=== PATIENT | female | born 2000 | race Hispanic/Latino ===

== ENCOUNTER 2021-03-07 16:51 | Inpatient (IN) | payer SELFPAY ==
--- OUTSIDE RECORDS SUMMARY | 2021-03-07 16:53 | XMS REPORT | Continuity of Care Document ---
:2000 Author Organization [facility] [place] [facility] t Address [address] [place] [address] Care Team Providers Name Role Phone Carlos Gordon [facility], [facility] Primary Care P hysician BETSY STONER Attending Clinician Unavailable Nan Stoner DO Attending Clinician Doctor Unassigned, Name Attending Clinician Unavailable Payers Payer Name Policy Type Policy Number Effective Date Expiration Date S ource Problems Condition Condition Condition Status Onset Resolution Last Treating Co mments Source Name Details Category Date Date Treatment Clinician Date New onset New onset Disease Active 2018-02 Uni vers type 1 type 1 03-19 ity of diabetes diabetes 00:00: [place] mellitus, mellitus, 00 Medi lynda uncontroll uncontroll Br anch ed ed Allergies, Adverse Reactions, Alerts Allergy Allergy Status Severity Reaction(s) Onset Inactive Treating Comm ents Source Name Type Date Date Clinician NO KNOWN Drug Active Univers ALLERGIE Class ity of S [facility] Social History Social Habit Start Date Stop Date Quantity Comments Source Exposure to Not sure [facility] SARS-CoV-2 [facility] (event) Branch Alcohol intake 2021-03-07 2021-03-07 Ex-drinker [facility] 00:00:00 00:00:00 (finding) [facility] Tobacco use and 2019-01-17 2019-01-17 Never used Universit y of exposure 00:00:00 00:00:00 [facility] Sex Assigned At [birth year] Universit y of 00:00:00 00:00:00 [facility] Smoking Status Start Date Stop Date Source Never smoker [facility] Medical Branch Medications Ordered Filled Start Stop Current Ordering Indication Dosage Frequency Signature Comments Components Source Medication Medication Date Date Medication? Clinician (SIG) Name Name ibuprofen 2021- No 600mg 600 mg, Uni vers (IBU) 03-07 Oral, ity of tablet 600 13:45: 12:39 ONCE, 1 Hardeep as mg 00 :00 dose, On Medical 03/07/21 Branch at 0745, DELFIN Lancets 2018-02 Yes [id number] Use as Uni vers (RELION 23 directed ity of ULTRA THIN 00:00: [place] PLUS 00 Medical LANCETS) Branch [facility] Insulin 2018-02 Yes [id number] Use as Uni vers Syringe-Nee 03-21 directed ity of dle U-100 00:00: [place] (BD INSULIN 00 Medical SYRINGE) Branch 0.5 mL 29 gauge x 1/2" Syrg insulin NPH 2018-02 Yes [id number] 10U inject 10 Univers and regular 1-23 Units ity of human 70-30 00:00: [place] 100 unit/mL 00 skin every Me dical (70-30) 12 Branch injection (twelve) hours. Blood-Gluco 2018-02 Yes [id number] Use as Univers se Meter 03-21 directed ity of (RELION 00:00: [place] MICRO 00 Medical GLUCOSE Branch MONITOR) Kit Lancets 2018-02 Yes [id number] Use as Uni vers (RELION 03-21 directed ity of ULTRA THIN 00:00: [place] PLUS 00 Medical LANCETS) Branch [facility] Insulin 2018-02 Yes [id number] Use as Uni vers Syringe-Nee 03-21 directed ity of dle U-100 00:00: [place] (BD INSULIN 00 Medical SYRINGE) Branch 0.5 mL 29 gauge x 1/2" Syrg insulin NPH 2018- Yes [id number] 10U inject 10 Univers and regular 1-23 Units ity of human 70-30 00:00: [place] 100 unit/mL 00 skin every Me dical (70-30) 12 Branch injection (twelve) hours. Blood-Gluco 2018-02 Yes [id number] Use as Univers se Meter 03-21 directed ity of (RELION 00:00: [place] MICRO 00 Medical GLUCOSE Branch MONITOR) Kit ibuprofen 2018-02 Yes [id number] 800mg Take 1 Univers 800 mg 1-21 tablet by ity of tablet 00:00: mouth [place] 00 every 8 Medical (eight) Branch hours as needed for Temp > 38.5 C (PAIN). ibuprofen 2018-02 Yes [id number] 800mg Take 1 Univers 800 mg 1-21 tablet by ity of tablet 00:00: mouth [place] 00 every 8 Medical (eight) Branch hours as needed for Temp > 38.5 C (PAIN). Vital Signs Vital Name Observation Time Observation Value Comments Source Systolic blood 2021-03-07 12:25:00 109 mm[Hg[facility] Diastolic blood 2021-03-07 12:25:00 72 mm[Hg] [facility] Heart rate 2021-03-07 12:25:00 122 /min [facility] Body temperature 2021-03-07 12:25:00 38.22 [facility] Respiratory rate 2021-03-07 12:25:00 18 /min [facility] Body weight 2021-03-07 12:25:00 66.225 kg [facility] Oxygen saturation in 2021-03-07 12:25:00 98 /min [facility] blood by [facility] Pulse oximetry Branch Procedures Procedure Date / Time Performed Performing Clinician Sourc e POCT GLUCOSE 2021-03-07 12:29:[address] [facility] (AUTOMATED) Medical [place] NOTICE OF PRIVACY 2021-03-07 12:18:40 Doctor Unassigned, No [facility] Name Medical Branch CONSENT/REFUSAL FOR 2021-03-07 12:18:18 Doctor Unassigned, No [facility] DIAGNOSIS AND Name Medical Branch TREATMENT Encounters Start End Encounter Admission Attending Care Care Encounter Source Date/Time Date/Time Type Type Clinicians Facility Department ID 2021-03-07 2021-03-07 Emergency X DARCI STONER ERT [id number] Univers 06:32:00 06:55:00 [facility]SY [facility] 2021-03-07 2021-03-07 Emergency DARCI Stoner [id number] Univers 06:32:00 06:55:00 Betsy SILVA [id number] ity of [place] [id number] [facility] [id number] [facility] 084 Branch 2021-03-07 2021-03-07 Orders Doctor DEMETRIUS [id number] Univers 00:00:00 00:00:00 Only Unassigned, BUNNY [id number] ity of Tat Momoli [facility] [id number] [facility] [id number] [facility] [address] [place] Results Test Description Test Time Test Comments Results Result Comments Source POCT GLUCOSE (AUTOMATED) 2021-03-07 12:31:46 Test Item Value Reference Range Interpretation Comme nts POCT GLU (test code = [id number]) 359 mg/dL 70-110 H Lab Interpretation (test code = 82083-3) Abnormal [facility]
[2021-03-07 21:06] LABS: Absolute Lymphocytes (CBC) 0.6 K/uL (0.7-4.9); Hematocrit 34.6 % (36.0-45.0); Lymphocytes % 5.6 % (15.3-44.8); MPV 9.2 fL (7.6-11.3); RBC Red Blood Cell Count 4.37 M/uL (3.86-4.86)
[2021-03-07 21:23] LABS: ALT/SGPT 27 U/L (12-78); AST/SGOT 23 U/L (15-37); Albumin 2.2 g/dL (3.4-5.0); Alkaline Phosphatase 114 U/L (45-117); BUN Blood Urea Nitrogen 33 mg/dL (7-18); Bicarbonate 23 mmol/L (21-32); Bilirubin Direct 0.2 mg/dL (0-0.2); Bilirubin Total 0.4 mg/dL (0.2-1.0); Glucose Level 345 mg/dL (74-106); Lipase 197 U/L (73-393); Potassium 4.4 mmol/L (3.5-5.1); Protein, Total 8.4 g/dL (6.4-8.2); Sodium Level 121 mmol/L (136-145)
[2021-03-07] MEDS ORDERED: NA CHLORIDE 0.9% 50 ML ONE (21:43)
[2021-03-07] MEDS ORDERED: ONDANSETRON 4 MG/2 ML VIAL ONE (21:43)
[2021-03-07] MEDS ORDERED: NA CHLORIDE 0.9% 2,000 ML ONE (21:43)
[2021-03-07] MEDS ORDERED: MORPHINE 2 MG/ML SYR ONE (21:43)
[2021-03-07] MEDS ORDERED: CEFTRIAXONE 1000 MG/VIAL ONE (21:43)
[2021-03-07] MEDS ORDERED: INSULIN -REGULAR HUMAN 50 UNIT/0.5 ML ML ONE (22:54)
[2021-03-07 23:44] LABS: Urine Blood 2+ (Negative); Urine Glucose 2+ (Negative); Urine Protein 2+ (Negative); Urine pH 5.5 (5.0-7.0)
[2021-03-07 23:55] LABS: Magnesium 2.4 mg/dL (1.8-2.4); NT PRO-BNP 154 pg/mL (<125); Troponin (Emerg Dept Use Only) < 0.02 ng/mL (0.0-0.045)
[2021-03-08 00:42] LABS: Protime INR 1.37
--- NOTE | 2021-03-08 01:15 | EDPHYS ---
Physician Documentation [facility] Name: Rain Chaidez Age: 20 yrs Sex: Female : 2000 Arrival Date: 03/07/2021 Time: 16:52 Bed 8 Private MD: ED Physician Austin Casey HPI: 03/07 21:16 This 20 yrs old Female presents to ER via Wheelchair with complaints of glory Abdominal Pain, Back Pain. 21:16 The patient presents with pain that is acute, with no known mechanism of injury. The glory symptoms are located in the left mid back. Onset: The symptoms/episode began/occurred 3 day(s) ago. The pain radiates to the posterior aspect of left lateral abdomen, anterior aspect of left lateral abdomen and left lower quadrant. Associated signs and symptoms: The patient has no apparent associated signs or symptoms. The problem was sustained from unknown cause. Modifying factors: The patient symptoms are alleviated by nothing, the patient symptoms are aggravated by nothing. Severity of symptoms: At their worst the symptoms were moderate, in the emergency department the symptoms are unchanged. The patient has not experienced similar symptoms in the past. 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 - Social history:: Smoking status: Patient denies any tobacco usage or history of. - Family history:: not pertinent. ROS: 21:16 Constitutional: Negative for fever, chills, and weight loss, Eyes: Negative for injury, glory pain, redness, and discharge, ENT: Negative for injury, pain, and discharge, Neck: Negative for injury, pain, and swelling, Cardiovascular: Negative for chest pain, palpitations, and edema, Respiratory: Negative for shortness of breath, cough, wheezing, and pleuritic chest pain, Abdomen/GI: Negative for abdominal pain, nausea, vomiting, diarrhea, and constipation, : Negative for injury, bleeding, discharge, and swelling, MS/Extremity: Negative for injury and deformity, Skin: Negative for injury, rash, and discoloration, Neuro: Negative for headache, weakness, numbness, tingling, and seizure, Psych: Negative for depression, anxiety, suicide ideation, homicidal ideation, and hallucinations, Allergy/Immunology: Negative for hives, rash, and allergies, Endocrine: Negative for neck swelling, polydipsia, polyuria, polyphagia, and marked weight changes. 21:16 Back: Positive for pain at rest, pain with movement, flank pain, on the right. 21:16 : Positive for urinary symptoms, urinary frequency. Exam: 21:16 Constitutional: This is a well developed, well nourished patient who is awake, alert, glory and in no acute distress. Head/Face: Normocephalic, atraumatic. Eyes: Pupils equal round and reactive to light, extra-ocular motions intact. Lids and lashes normal. Conjunctiva and sclera are non-icteric and not injected. Cornea within normal limits. Periorbital areas with no swelling, redness, or edema. ENT: Nares patent. No nasal discharge, no septal abnormalities noted. Tympanic membranes are normal and external auditory canals are clear. Oropharynx with no redness, swelling, or masses, exudates, or evidence of obstruction, uvula midline. Mucous membranes moist. Neck: Trachea midline, no thyromegaly or masses palpated, and no cervical lymphadenopathy. Supple, full range of motion without nuchal rigidity, or vertebral point tenderness. No Meningismus. Chest/axilla: Normal chest wall appearance and motion. Nontender with no deformity. No lesions are appreciated. Cardiovascular: Regular rate and rhythm with a normal S1 and S2. No gallops, murmurs, or rubs. Normal PMI, no JVD. No pulse deficits. Respiratory: Lungs have equal breath sounds bilaterally, clear to auscultation and percussion. No rales, rhonchi or wheezes noted. No increased work of breathing, no retractions or nasal flaring. Pelvic Exam: Normal external genitalia. Speculum exam with closed cervical os, no discharge or bleeding noted. Bimanual exam with normal adnexa, no adnexal or cervical motion tenderness. Normal uterus. Female : Normal external genitalia. Skin: Warm, dry with normal turgor. Normal color with no rashes, no lesions, and no evidence of cellulitis. MS/ Extremity: Pulses equal, no cyanosis. Neurovascular intact. Full, normal range of motion. Neuro: Awake and alert, GCS 15, oriented to person, place, time, and situation. Cranial nerves II-XII grossly intact. Motor strength 5/5 in all extremities. Sensory grossly intact. Cerebellar exam normal. Normal gait. 21:16 Abdomen/GI: Inspection: abdomen appears normal, Bowel sounds: normal, Palpation: moderate abdominal tenderness, in the posterior aspect of left lateral abdomen, anterior aspect of left lateral abdomen and left lower quadrant, Liver: no appreciated palpable abnormalities, Hernia: not appreciated. 22:44 ECG was reviewed by the Attending Physician. [facility] Vital Signs: 17:42 BP 115 / 81; Pulse 135; Resp 18; Temp 99.1(TE); Pulse Ox 99% on R/A; Weight 70.76 kg; ww Height 5 ft. 0 in. (152.40 cm); Pain 10/10; 22:18 BP 117 / 74; Pulse 98; Resp 18; Pulse Ox 100% on R/A; tw5 23:15 BP 121 / 86; Pulse 90; Resp 18; Pulse Ox 95% on R/A; tw5 03/08 00:15 Pulse 96; Resp 22; Pulse Ox 100% on R/A; tw5 01:36 BP 149 / 103; Pulse 103; Resp 22; Temp 99.8(O); Pulse Ox 98% on R/A; sm5 03/07 17:42 Body Mass Index 30.47 (70.76 kg, 152.40 cm) Shanna Coma Score: 03/07 22:18 Eye Response: spontaneous(4). Verbal Response: oriented(5). Motor Response: obeys tw5 commands(6). Total: 15. 23:15 Eye Response: spontaneous(4). Verbal Response: oriented(5). Motor Response: obeys tw5 commands(6). Total: 15. 03/08 00:15 Eye Response: spontaneous(4). Verbal Response: oriented(5). Motor Response: obeys tw5 commands(6). Total: 15. :36 Eye Response: spontaneous(4). Verbal Response: oriented(5). Motor Response: obeys sm5 commands(6). Total: 15. MDM: 03/07 19:45 Patient medically screened. [facility] 21:22 Differential diagnosis: Hydronephrosis Pyelonephritis sprain, Ureterolithiasis. Data [facility] reviewed: vital signs, nurses notes, lab test result(s), radiologic studies, plain films. Data interpreted: personnel monitor: rate is 135 beats/min, rhythm is regular, Pulse oximetry: on room air is 99 %. Test interpretation: by ED physician or midlevel provider:. Counseling: I had a detailed discussion with the patient and/or guardian regarding: the historical points, exam findings, and any diagnostic results supporting the discharge/admit diagnosis, lab results, radiology results. 03/07 20:35 Order name: Basic Metabolic Panel [facility] 03/07 20:35 Order name: CBC with Diff; Complete Time: 22:19 [facility] 03/07 20:35 Order name: Hepatic Function [facility] 03/07 20:35 Order name: Lipase [facility] 03/07 21:16 Order name: Blood Culture Adult (2) [facility] 03/07 21:16 Order name: Urine Culture [facility] 03/07 21:16 Order name: Lactate [facility] 03/07 21:16 Order name: SARS-COV-2 RT PCR (Document "Date of Onset" if Symptomatic) [facility] 03/07 21:17 Order name: Blood Culture [facility] 03/07 21:17 Order name: Urine Culture [facility] 03/07 21:17 Order name: Lactate; Complete Time: 00:19 [facility] 03/07 21:17 Order name: SARS-COV-2 RT PCR; Complete Time: 00:19 [facility] 03/07 22:20 Order name: Osmolality, Serum [facility] 03/07 22:20 Order name: Urine Osmolality; Complete Time: 00:58 [facility] 03/07 22:20 Order name: Urine Sodium Random; Complete Time: 00:19 [facility] 03/07 22:21 Order name: PT-INR; Complete Time: 00:49 [facility] 03/07 22:25 Order name: Test, Serum [facility] 03/07 23:42 Order name: Troponin (Emerg Dept Use Only) [facility] 03/07 23:42 Order name: NT PRO-BNP [facility] 03/07 23:42 Order name: Magnesium [facility] 03/07 23:44 Order name: Urine Dipstick-Ancillary; Complete Time: 00:19 [facility] 03/07 23:54 Order name: Urine --Ancillary (enter results) cs9 03/07 19:24 Order name: IV Saline Lock; Complete Time: 22:44 lg3 03/07 19:24 Order name: Labs collected and sent; Complete Time: 22:44 lg3 03/07 21:16 Order name: CT Stone Protocol [facility] 03/07 21:16 Order name: Urine Dipstick-Ancillary (obtain specimen); Complete Time: 23:47 [facility] 03/07 21:16 Order name: Urine Test (obtain specimen); Complete Time: 23:47 [facility] 03/07 22:21 Order name: XRAY Chest (1 view) [facility] 03/07 22:21 Order name: EKG; Complete Time: 22:22 [facility] 03/07 22:21 Order name: Cardiac monitoring; Complete Time: 22:44 [facility] 03/07 22:21 Order name: EKG - Nurse/Tech; Complete Time: 22:44 [facility] 03/07 22:21 Order name: O2 Per Protocol; Complete Time: 22:44 [facility] 03/07 22:21 Order name: O2 Sat Monitoring; Complete Time: 22:44 [facility] 03/07 23:55 Order name: Urine --Ancillary; Complete Time: 00:19 [facility] 03/08 01:31 Order name: C-Reactive Protein [facility] 03/08 01:36 Order name: Urine Microscopic Only la1 03/08 04:00 Order name: Glucose, Ancillary Testing [facility] 03/08 05:38 Order name: CBC with Automated Diff [facility] 03/08 06:23 Order name: Comprehensive Metabolic Panel [facility] 03/08 06:23 Order name: T4 Free [facility] 03/08 06:23 Order name: Thyroid Stimulating Hormone [facility] 03/08 06:59 Order name: Hemoglobin A1c [facility] 03/08 07:57 Order name: Glucose, Ancillary Testing [facility] 03/08 12:03 Order name: Glucose, Ancillary Testing [facility] 03/08 17:10 Order name: Glucose, Ancillary Testing [facility] 03/08 22:22 Order name: Glucose, Ancillary Testing [facility] 03/08 01:28 Order name: Blood Glucose Level; Complete Time: 03:50 [facility] EC:44 Rate is 89 beats/min. Rhythm is regular. QRS [place] is Normal. [place] interval is normal. QRS [place] interval is normal. QT interval is normal. No Q waves. T waves are Normal. No ST changes noted. Clinical impression: NSR w/ Non-specific ST/T Changes and No evidence of ischemia. Interpreted by me. Reviewed by me. Administered Medications: 22:18 Drug: NS 0.9% 1000 ml Route: IV; Rate: 1 bolus; Site: right wrist; tw5 22:18 Drug: NS 0.9% 1000 ml Route: IV; Rate: 1 bolus; Site: right wrist; tw5 22:18 Drug: Rocephin (cefTRIAXone) 1 grams Route: IV; Rate: per protocol; Site: right wrist; tw5 22:18 Drug: morphine 2 mg Route: IVP; Site: right wrist; tw5 22:18 Drug: Zofran (Ondansetron) 4 mg Route: IVP; Site: right wrist; tw5 22:24 CANCELLED (Duplicate Order): NS 0.9% 1000 ml IV at 1 bolus Per protocol; 1000 mL bolus glory 22:53 Drug: Insulin Regular Human 10 units {Co-Signature: sm5 (Rachel Santiago RN).} Route: tw5 Sub-Q; Site: left upper arm; Disposition Summary: 03/08/21 01:14 Hospitalization Ordered Hospitalization Status: Observation glory Provider: Jeff Dumas cha Condition: Fair glory Problem: new glory Symptoms: have improved glory Bed/Room Type: Standard glory Location: Telemetry/MedSurg (observation)(03/08/21 09:06) bd Room Assignment: 429(03/08/21 09:06) bd Diagnosis - Pyelonephritis acute glory - Type 1 diabetes mellitus with hyperglycemia glory - Hypo-osmolality and hyponatremia glory - Fever, unspecified glory - Coronavirus infection, unspecified glory Forms: - Medication Reconciliation Form glory - SBAR form glory Signatures: Dispatcher [employer] EDRenetta Garcia Corey, MD MD cha Attema, Lee, CAR RACER-C CAR RACER-Cla1 Faith Dumont, Rubi Fernandez RN, RN RN abdon3 Mariana Boswell tw5 Olesya Boswell RN RN ww Rachel Santiago RN sm5 Corrections: (The following items were deleted from the chart) 22:24 22:21 NS 0.9% 1000 ml IV at 1 bolus Per protocol; 1000 mL bolus ordered. glory glory 23:41 22:21 MAGNESIUM+C.LAB.BRZ ordered. EDMS EDMS : 22:21 PROBNP+C.LAB.BRZ ordered. EDMS EDMS : 22:21 TROPONIN (EMERG DEPT USE ONLY)+C.LAB.BRZ ordered. EDMS EDMS 03/08 00:37 03/07 22:25 Test Serum, [place] ordered. EDMS EDMS 03/08 01:31 01:28 C-REACTIVE PROTEIN+C.LAB.BRZ ordered. EDMS EDMS 01:14 Telemetry/MedSurg (observation) [facility] : 01:14 [facility] cg 09:06 01:31 [facility] ER HOLD cg bd 09: 01:31 ERHOLD- cg bd
--- NOTE | 2021-03-08 01:15 | ER ---
Nurse's Notes [facility] Name: Rain Chaidez Age: 20 yrs Sex: Female : 2000 Arrival Date: 03/07/2021 Time: 16:52 Bed 8 Private MD: Diagnosis: Pyelonephritis acute;Type 1 diabetes mellitus with hyperglycemia;Hypo-osmolality and hyponatremia;Fever, unspecified;Coronavirus infection, unspecified Presentation: 03/07 17:42 Chief complaint: Patient states: Left lower quadrant abdominal pain that radiates to ww the back that started 3 days with complaints of diarrhea. Coronavirus screen: Vaccine status: Patient reports receiving the 2nd dose of the covid vaccine. Client denies travel out of the [place] in the last 14 days. Ebola Screen: Patient negative for fever greater than or equal to 101.5 degrees Fahrenheit, and additional compatible Ebola Virus Disease symptoms Patient denies exposure to infectious person. Initial Sepsis Screen: Does the patient meet any 2 criteria? No. Patient's initial sepsis screen is negative. Does the patient have a suspected source of infection? No. Patient's initial sepsis screen is negative. Risk Assessment: Do you want to hurt yourself or someone else? Patient reports no desire to harm self or others. Onset of symptoms was March 05, 2021. 17:42 Method Of Arrival: Wheelchair 17:42 Acuity: CHERI 3 ww Triage Assessment: 17:44 General: Appears uncomfortable, unkempt, Behavior is calm, cooperative, appropriate for ww age. Pain: Complains of pain in posterior aspect of left lateral abdomen, left upper quadrant and left lower quadrant. EENT: No deficits noted. No signs and/or symptoms were reported regarding the EENT system. Neuro: No deficits noted. Level of Consciousness is awake, alert, obeys commands, Oriented to person, place. Cardiovascular: No deficits noted. Respiratory: Airway is patent Respiratory effort is even, unlabored, Respiratory pattern is regular, symmetrical. GI: Abdomen is tender to palpation in left upper quadrant and left lower quadrant Reports lower abdominal pain, upper abdominal pain, diarrhea. : No deficits noted. No signs and/or symptoms were reported regarding the genitourinary system. Derm: No deficits noted. No signs and/or symptoms reported regarding the dermatologic system. Skin is intact. 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 - Social history:: Smoking status: Patient denies any tobacco usage or history of. - Family history:: not pertinent. Screenin:46 Abuse screen: Denies threats or abuse. Denies injuries from another. Nutritional ww screening: No deficits noted. Tuberculosis screening: No symptoms or risk factors identified. Fall Risk None identified. Assessment: 22:18 General: Appears in no apparent distress. uncomfortable, Behavior is calm, cooperative, tw5 appropriate for age. Pain: Complains of pain in left low back, left mid back and left lower quadrant Pain currently is 10 out of 10 on a pain scale. Pain began 2-3 days ago. Pain:. Neuro: Level of Consciousness is awake, alert, obeys commands, Oriented to person, place, time, situation. Respiratory: Reports Airway is patent Trachea midline Respiratory effort is even, unlabored, Respiratory pattern is regular. GI: Abdomen is non-distended, Bowel sounds present in right upper quadrant, left upper quadrant, right lower quadrant and left lower quadrant Abdomen is tender to palpation in left lower quadrant. : bloody. Derm: Skin is intact. 23:30 Reassessment: No changes from previously documented assessment. sm5 03/08 00:25 Reassessment: No changes from previously documented assessment. Patient and/or family 5 updated on plan of care and expected duration. Pain level reassessed. 01:36 Reassessment: No changes from previously documented assessment. sm5 02:30 Reassessment: No changes from previously documented assessment. 5 07:00 Reassessment: charting continued in [facility]. jd3 Vital Signs: 03/07 17:42 BP 115 / 81; Pulse 135; Resp 18; Temp 99.1(TE); Pulse Ox 99% on R/A; Weight 70.76 kg; ww Height 5 ft. 0 in. (152.40 cm); Pain 1010; 22:18 BP 117 / 74; Pulse 98; Resp 18; Pulse Ox 100% on R/A; tw5 23:15 BP 121 / 86; Pulse 90; Resp 18; Pulse Ox 95% on R/A; tw5 03/08 00:15 Pulse 96; Resp 22; Pulse Ox 100% on R/A; tw5 01:36 BP 149 / 103; Pulse 103; Resp 22; Temp 99.8(O); Pulse Ox 98% on R/A; sm5 03/07 17:42 Body Mass Index 30.47 (70.76 kg, 152.40 cm) ww Shanna Coma Score: 03/07 22:18 Eye Response: spontaneous(4). Verbal Response: oriented(5). Motor Response: obeys tw5 commands(6). Total: 15. 23:15 Eye Response: spontaneous(4). Verbal Response: oriented(5). Motor Response: obeys tw5 commands(6). Total: 15. 03/08 00:15 Eye Response: spontaneous(4). Verbal Response: oriented(5). Motor Response: obeys tw5 commands(6). Total: 15. 01:36 Eye Response: spontaneous(4). Verbal Response: oriented(5). Motor Response: obeys sm5 commands(6). Total: 15. ED Course: 03/07 16:52 Patient arrived in ED. am2 17:44 Triage completed. ww 17:44 Arm band placed on left wrist. ww 19:45 Austin Casey MD is Attending Physician. [facility] 19:49 Mariana Boswell is Primary Nurse. tw5 21:00 Inserted saline lock: 20 gauge in right wrist, using aseptic technique. Blood collected.oe 22:15 Initial lab(s) drawn, by ar, sent to lab. First set of blood cultures drawn Second set tw5 of blood cultures drawn by ar, COVID swab sent to lab. 22:15 Urine collected: clean catch specimen. tw5 22:18 Patient has correct armband on for positive identification. Placed in gown. Bed in low tw5 position. Side rails up X2. supervisor [employer] on. Pulse ox on. NIBP on. Door closed. Noise minimized. Moved to private room. Warm blanket given. Verbal reassurance given. 22:18 SARS-COV-2 RT PCR Sent. tw5 22:18 Lactate Sent. tw5 22:18 Blood Culture Sent. tw5 22:18 Lactate Sent. tw5 22:18 SARS-COV-2 RT PCR (Document "Date of Onset" if Symptomatic) Sent. tw5 22:44 Test, Serum Sent. sm5 22:44 Blood Culture Adult (2) Sent. sm5 22:53 XRAY Chest (1 view) In Process Unspecified. EDMS 23:47 Urine Culture Sent. sm5 23:47 Osmolality, Serum Sent. sm5 23:47 Urine Osmolality Sent. sm5 23:47 Urine Sodium Random Sent. sm5 23:47 Urine Culture Sent. 5 03/08 00:16 Urine --Ancillary (enter results) Sent. tw5 00:17 CT Stone Protocol Sent. tw5 00:17 Blood Culture Sent. tw5 00:17 Urine Osmolality Sent. tw5 00:28 CT Stone Protocol In Process Unspecified. EDMS 01:01 Jeff Dumas MD is Hospitalizing Provider. glory 01:34 No provider procedures requiring assistance completed. sm5 03:50 Urine Microscopic Only Sent. sm5 07:28 Primary Nurse role handed off by Mariana Boswell bd 13:20 Josef Hollis RN is Primary Nurse. jd3 20:55 Report given to SCAR Dick[place] 4th floor; all questions and concerns addressed. Droplet st1 isolation initiated. 22:22 Patient admitted, IV remains in place. intact, No redness/swelling at site. st1 Administered Medications: 03/07 22:18 Drug: NS 0.9% 1000 ml Route: IV; Rate: 1 bolus; Site: right wrist; tw5 22:18 Drug: NS 0.9% 1000 ml Route: IV; Rate: 1 bolus; Site: right wrist; tw5 22:18 Drug: Rocephin (cefTRIAXone) 1 grams Route: IV; Rate: per protocol; Site: right wrist; tw5 22:18 Drug: morphine 2 mg Route: IVP; Site: right wrist; tw5 22:18 Drug: Zofran (Ondansetron) 4 mg Route: IVP; Site: right wrist; tw5 22:24 CANCELLED (Duplicate Order): NS 0.9% 1000 ml IV at 1 bolus Per protocol; 1000 mL bolus glory 22:53 Drug: Insulin Regular Human 10 units {Co-Signature: sm5 (Rachel Santiago RN).} Route: tw5 Sub-Q; Site: left upper arm; Outcome: 03/08 01:14 Decision to Hospitalize by Provider. glory 22:20 Admitted to Med/surg accompanied by nurse, via stretcher, with chart. st1 22:21 Condition: stable st1 22:21 Instructed on the need for admit. 22:23 Patient left the ED. st1 Signatures: Dispatcher [employer] EDMS Renetta Cazares Corey, MD MD cha Espinosa, Orlando oe Moreno, Amanda amJosef Ball RN Mariana Romo [facility] Rachel Santiago, RN RN 5 Olesya Boswell RN SCAR ww Umm Dominguez RN RN st1 Rachel Santiago RN 5 Corrections: (The following items were deleted from the chart) 00:37 00:17 Test Serum, Qualitat drawn and sent. [facility] EDTN
[2021-03-08] MEDS ORDERED: GLUCAGON 1 MG/VIAL IM PRN (01:41)
[2021-03-08] MEDS ORDERED: D50W 25 GM/50 ML SYRINGE IV PRN (01:41)
--- NOTE | 2021-03-08 01:42 | P.HP ---
Certification for Inpatient Patient admitted to: Inpatient With expected LOS: >2 Midnights Patient will require the following post-hospital care: None Practitioner: I am a practitioner with admitting privileges, knowledge of patient current condition, hospital course, and medical plan of care. Services: Services provided to patient in accordance with Admission requirements found in Title 42 Section 412.3 of the Code of Federal Regulations <Jacky Wall - Last Filed: 03/08/21 01:37> Patient History Date of Service: 03/08/21 Reason for admission: Pyelonephritis History of Present Illness: 20-year-old female with history of diabetes mellitus type 1 presents emergency department for fever, chills, left lower quadrant abdominal pain radiating around the back. Patient was evaluated in the emergency department labs were significant for white blood cell count 11.1 hemoglobin 11.3 hematocrit 34.6 sodium 121 chloride 89 BUN 33 creatinine 1.36 GFR 49 glucose 345 urine 1+ leuk esterase 1+ ketone 2+ blood nitrite negative, COVID-positive CT abdomen pelvis with IV contrast demonstrates left-sided perinephritic stranding consistent with pyelonephritis. Patient with left-sided pyelonephritis, hyponatremia, hyperglycemia, fever. ED provider wishes to admit for further evaluation and management. - Past Medical/Surgical History -: Diabetes mellitus type 1 -: None Psychosocial/ Personal History: Patient is unemployed and lives with her parents - Family History Brother -: Cancer - Social History Smoking Status: Never smoker Alcohol use: No CD- Drugs: No Caffeine use: Yes Place of Residence: Home <Jacky Wall - Last Filed: 03/08/21 01:37> Date of Service: 03/08/21 <Jeff Dumas - Last Filed: 03/08/21 17:49> Review of Systems 10-point ROS is otherwise unremarkable General: Fever, Chills, Weakness, Malaise Gastrointestinal: Nausea, Vomiting, Abdominal Pain Musculoskeletal: Back Pain <Jacky Wall - Last Filed: 03/08/21 01:37> Physical Examination - Physical Exam General: Alert, In no apparent distress, Oriented x3 HEENT: Atraumatic, PERRLA, Mucous membr. moist/pink, EOMI, Sclerae nonicteric Neck: Supple, 2+ carotid pulse no bruit, No LAD, Without JVD or thyroid abnormality Respiratory: Clear to auscultation bilaterally, Normal air movement Cardiovascular: Regular rate/rhythm, Normal S1 S2 Gastrointestinal: Normal bowel sounds, No tenderness, No masses, No rebound, No guarding, Tenderness (Mild left lower quadrant tenderness, mild CVA tenderness left-sided) Musculoskeletal: No tenderness Integumentary: No rashes Neurological: Normal speech, Normal strength at 5/5 x4 extr, Normal tone, Normal affect - Studies Laboratory Data (last 24 hrs) 03/08/21 00:31: PT 15.8 H, INR 1.37 03/07/21 22:21: Magnesium Cancelled 03/07/21 20:53: WBC 11.10 H, Hgb 11.3 L, Hct 34.6 L, Plt Count 192 03/07/21 20:53: Sodium 121 L, Potassium 4.4, BUN 33 H, Creatinine 1.36 H, Glucose 345 H, Magnesium 2.4, Total Bilirubin 0.4, AST 23, ALT 27, Alkaline Phosphatase 114, Lipase 197 <Jacky Wall - Last Filed: 03/08/21 01:37> - Studies Laboratory Data (last 24 hrs) 03/08/21 00:31: PT 15.8 H, INR 1.37 03/07/21 22:21: Magnesium Cancelled 03/07/21 20:53: WBC 11.10 H, Hgb 11.3 L, Hct 34.6 L, Plt Count 192 03/07/21 20:53: Sodium 121 L, Potassium 4.4, BUN 33 H, Creatinine 1.36 H, Glucose 345 H, Magnesium 2.4, Total Bilirubin 0.4, AST 23, ALT 27, Alkaline Phosphatase 114, Lipase 197 <Jeff Dumas - Last Filed: 03/08/21 17:49> Assessment and Plan - Plan Assessment: Fever, flank pain secondary to left-sided pyelonephritis Diabetes mellitus type 1 with hyperglycemia Hyponatremia COVID-positive Plan: Fever, flank pain secondary to left-sided pyelonephritis: Blood and urine cultures obtained continue with IV Levaquin. Await results from blood cultures, will continue aggressive hydration as patient appears dry. Diabetes mellitus type 1 with hyperglycemia: Patient takes Novolin 70/30 10 units twice daily, Lantus 15 units nightly provide patient with slightly modified dosing of the above insulin in addition to sliding scale during hospitalization. A1c with morning labs. Hyponatremia: Sodium 121 corrected for hyperglycemia 125. Patient appears very dry and has not been eating or drinking well the past couple days we will continue aggressive hydration anticipate sodium to correct. We will consult nephrology for any worsening or without improvement of sodium level. COVID-positive: Patient with fever last couple days no respiratory symptoms reported on room air at this time we will trend CRP level monitor daily room air saturations. DVT PPX: Lovenox Code status: Full Discharge Plan: Home Plan to discharge in: 48 Hours - Advance Directives Does patient have a Living Will: No Does patient have a Durable POA for Healthcare: No - Code Status/Comfort Care Code Status Assessed: Yes (Full code) Critical Care: No Time Spent Managing Pts Care (In Minutes): 55 <Jacky Wall - Last Filed: 03/08/21 01:37> - Plan Patient seen and examined on rounds this morning. Reports some slight improvement in pain since admission, but not much Denies any renal stone history Continue with plan as noted above <Jeff Dumas - Last Filed: 03/08/21 17:49>
[2021-03-08 01:46] VITALS: BMI 30.4
[2021-03-08] MEDS ORDERED: Levofloxacin500mg IV 500 MG/100 ML BAG IV ONE (03:51)
[2021-03-08] MEDS ORDERED: NA CHLORIDE 0.9% 1,000 ML ONE ×2 (03:51→10:47)
[2021-03-08] MEDS: NA CHLORIDE 0.9% 1,000 ML IV SCH ×4 (04:03→22:46)
[2021-03-08] MEDS: Levofloxacin500mg IV 500 MG/100 ML BAG IV SCH (04:03)
[2021-03-08] MEDS ORDERED: ACETAMINOPHEN 500 MG TAB ONE ×2 (04:06→14:56)
[2021-03-08] MEDS: MORPHINE 2 MG/ML SYR IV PRN ×2 (04:06→21:17)
[2021-03-08] MEDS: ACETAMINOPHEN 500 MG TAB PO PRN ×2 (04:07→15:18)
[2021-03-08] MEDS ORDERED: MORPHINE 2 MG/ML SYR ONE ×3 (04:07→21:16)
[2021-03-08] MEDS ORDERED: HYDROCODONE/APAP 5/325 MG TAB ONE ×2 (05:26→16:43)
[2021-03-08] MEDS ORDERED: ONDANSETRON 4 MG/2 ML VIAL ONE (05:26)
[2021-03-08] MEDS: HYDROCODONE/APAP 5/325 MG TAB PO PRN ×2 (05:31→16:45)
[2021-03-08] MEDS: ONDANSETRON 4 MG/2 ML VIAL IV PRN (05:31)
[2021-03-08 05:35] LABS: Absolute Lymphocytes (CBC) 0.5 K/uL (0.7-4.9); Hematocrit 29.2 % (36.0-45.0); Lymphocytes % 4.9 % (15.3-44.8); RBC Red Blood Cell Count 3.72 M/uL (3.86-4.86)
[2021-03-08 06:16] LABS: Albumin 1.8 g/dL (3.4-5.0); Bilirubin Total 0.2 mg/dL (0.2-1.0); Potassium 4.3 mmol/L (3.5-5.1); Protein, Total 7.1 g/dL (6.4-8.2); Thyroid Stimulating Hormone 3.04 uIU/mL (0.360-3.740)
[2021-03-08] MEDS: INSULIN 70/30 100 UNITS/ML SQ SCH ×2 (07:30→16:30)
[2021-03-08] MEDS: INSULIN -REGULAR HUMAN 50 UNIT/0.5 ML ML SQ SCH ×4 (07:30→22:46)
[2021-03-08] MEDS ORDERED: MORPHINE 2 MG/ML SYR IV ONE (07:37)
[2021-03-08] MEDS ORDERED: NPH (HUMAN) 100 UNITS/ML INSULIN SQ ONE (07:55)
[2021-03-08] MEDS ORDERED: ENOXAPARIN 40 MG/0.4 ML SQ ONE (07:57)
[2021-03-08] MEDS ORDERED: INSULIN -REGULAR HUMAN 50 UNIT/0.5 ML ML ONE ×4 (07:57→17:06)
[2021-03-08] MEDS ORDERED: INFLUENZA VACCINE (for 6+ mo) 0.5 ML DOSE IMVAC ONE ×2 (08:00→10:39)
[2021-03-08] MEDS ORDERED: PNEUMOCOCCAL VACCINE 0.5 ML IMVAC ONE ×2 (08:00→10:40)
[2021-03-08] MEDS: ENOXAPARIN 40 MG/0.4 ML SQ SCH (08:07)
--- NOTE | 2021-03-08 08:35 | RAD REPORT ---
EXAM DESCRIPTION: Kary Single View03/07/2021 10:53 pm CLINICAL HISTORY: Cough COMPARISON: none FINDINGS: The lungs appear clear of acute infiltrate. The heart appears borderline enlarged
--- NOTE | 2021-03-08 12:53 | RAD REPORT ---
EXAM DESCRIPTION: CT - Stone Protocol - 03/08/2021 5:45 am CLINICAL HISTORY: ABDOMINAL DISTENTION COMPARISON: None. TECHNIQUE: CT ABDOMEN PELVIS WITHOUT IV CONTRAST on 03/07/2021 9:16 PM [employer]ARKING [employer] MANAGER This exam was performed according to our departmental dose-optimization program, which includes autom ated exposure control, adjustment of the mA and/or kV according to patient size and/or use of iterati ve reconstruction technique. FINDINGS: There is a trace left pleural effusion. There is minimal left basilar atelectasis. Abdomen: The liver is normal in appearance. There is no biliary dilatation. Gallbladder is normal in appearance. The pancreas and spleen are normal in appearance. Adrenal glands and right kidney are nor mal. There is mild left perinephric stranding without definite hydronephrosis. Abdominal aorta is normal in course and caliber without aneurysm. There is no free air. There is no r etroperitoneal adenopathy. Pelvis: There is no bowel obstruction. Urinary bladder is unremarkable. There is no free fluid. Appen ericka is normal. Uterus is normal in size. Skeleton: There are no acute osseous findings. No suspicious bony lesions. IMPRESSION: Mild left perinephric stranding. This may be secondary to pyelonephritis. No convincing hydronephrosis. Electronically signed by: Jose Marmoleoj MD 03/08/2021 12:37 AM PARKING GARAGE MANAGER Due to temporary technical issues with the PACS/Fluency reporting system, reports are being signed by the in house radiologist without review as a courtesy to ensure prompt reporting. The interpreting r adiologist is fully responsible for the content of the report.
[2021-03-08] MEDS ORDERED: FENTANYL CITR 100 MCG/2 ML IV ONE (22:19)
[2021-03-08] MEDS: INSULIN GLARGINE 100 UNIT/ML SQ SCH (22:46)
[2021-03-09] MEDS: HYDROCODONE/APAP 5/325 MG TAB PO PRN ×3 (00:38→20:17)
[2021-03-09] MEDS: HYDROMORPHONE HCL 0.5 MG/0.5 ML INJ IV PRN ×6 (01:50→22:03)
[2021-03-09] MEDS: Levofloxacin500mg IV 500 MG/100 ML BAG IV SCH (02:11)
[2021-03-09] MEDS: ONDANSETRON 4 MG/2 ML VIAL IV PRN ×3 (03:25→17:57)
[2021-03-09] MEDS: NA CHLORIDE 0.9% 1,000 ML IV SCH ×3 (06:07→23:48)
[2021-03-09 06:44] LABS: Absolute Lymphocytes (CBC) 0.7 K/uL (0.7-4.9); Hematocrit 30.3 % (36.0-45.0); RBC Red Blood Cell Count 3.79 M/uL (3.86-4.86)
[2021-03-09 07:16] LABS: Albumin 1.5 g/dL (3.4-5.0); Bilirubin Total 0.2 mg/dL (0.2-1.0); Potassium 4.4 mmol/L (3.5-5.1); Protein, Total 6.5 g/dL (6.4-8.2)
[2021-03-09] MEDS: INSULIN 70/30 100 UNITS/ML SQ SCH ×2 (07:30→16:30)
[2021-03-09] MEDS: INSULIN -REGULAR HUMAN 50 UNIT/0.5 ML ML SQ SCH ×4 (07:55→20:10)
[2021-03-09] MEDS: MORPHINE 2 MG/ML SYR IV PRN ×2 (08:53→14:22)
[2021-03-09] MEDS: ENOXAPARIN 40 MG/0.4 ML SQ SCH (08:53)
--- NOTE | 2021-03-09 18:26 | P.PN ---
Subjective Date of Service: 03/09/21 Chief Complaint: Pyelonephritis Patient complaining of abdominal pain. She has had no fever today. Physical Examination - Vital Signs Temperature: 97.7 F Blood Pressure: 140/74 Pulse: 82 Respirations: 20 Pulse Ox (%): 99 - Physical Exam General: Alert, In no apparent distress, Oriented x3 HEENT: Mucous membr. moist/pink Neck: JVD not distended Respiratory: Clear to auscultation bilaterally, Normal air movement Cardiovascular: Regular rate/rhythm, Normal S1 S2 Gastrointestinal: Normal bowel sounds, Soft and benign, Non-distended Musculoskeletal: No swelling Integumentary: No rashes, No cyanosis Neurological: Normal strength at 5/5 x4 extr Assessment And Plan - Current Problems (Diagnosis) (1) COVID-19 virus infection Current Visit: Yes Status: Acute (2) Acute pyelonephritis Current Visit: Yes Status: Acute (3) Type 1 diabetes Current Visit: Yes Status: Acute (4) Hyponatremia Current Visit: Yes Status: Acute (5) Anemia Current Visit: Yes Status: Acute - Plan Continue IV antibiotics. Urine cultures growing gram-negative rods. Follow urine culture. Symptom management, pain control. IV normal saline to treat hyponatremia. Continue Novolin 70/30 and insulin sliding scale for glucose management. Monitor BMP
[2021-03-09] MEDS: INSULIN GLARGINE 100 UNIT/ML SQ SCH (20:10)
[2021-03-09] MEDS ORDERED: Levofloxacin 750mg IV 750 MG/150 ML BAG IV SCH (21:00)
[2021-03-10] MEDS: HYDROCODONE/APAP 5/325 MG TAB PO PRN ×4 (00:50→23:24)
[2021-03-10] MEDS: HYDROMORPHONE HCL 0.5 MG/0.5 ML INJ IV PRN ×4 (02:07→20:19)
[2021-03-10] MEDS: ONDANSETRON 4 MG/2 ML VIAL IV PRN ×4 (02:08→20:19)
[2021-03-10] MEDS: NA CHLORIDE 0.9% 1,000 ML IV SCH ×2 (06:22→15:46)
[2021-03-10 06:27] LABS: Hematocrit 30.9 % (36.0-45.0); Lymphocytes % 12.1 % (15.3-44.8); MPV 8.6 fL (7.6-11.3); RBC Red Blood Cell Count 3.86 M/uL (3.86-4.86)
[2021-03-10 06:53] LABS: Albumin 1.5 g/dL (3.4-5.0); Bilirubin Total 0.2 mg/dL (0.2-1.0); Potassium 4.2 mmol/L (3.5-5.1); Protein, Total 6.3 g/dL (6.4-8.2)
[2021-03-10] MEDS: INSULIN -REGULAR HUMAN 50 UNIT/0.5 ML ML SQ SCH ×4 (07:30→20:20)
[2021-03-10] MEDS: ENOXAPARIN 40 MG/0.4 ML SQ SCH (09:06)
[2021-03-10] MEDS: INSULIN 70/30 100 UNITS/ML SQ SCH ×2 (09:13→17:41)
[2021-03-10] MEDS ORDERED: PIPER TAZO 3.375 GM in NA CHLORIDE 0.9% 100 ML IV SCH (11:45)
--- NOTE | 2021-03-10 16:23 | P.PN ---
Subjective Date of Service: 03/10/21 Chief Complaint: Pyelonephritis Patient still complaining of left flank pain radiating to the anterior lower abdomen into the pelvis. No fever over the past 48 hours. Her urine culture grew ESBL E. coli. Physical Examination - Vital Signs Temperature: 97.1 F Blood Pressure: 125/86 Pulse: 75 Respirations: 18 Pulse Ox (%): 100 - Physical Exam General: Alert, Mild distress (Due to pain) HEENT: Mucous membr. moist/pink Neck: JVD not distended Respiratory: Clear to auscultation bilaterally, Normal air movement Cardiovascular: No edema, Regular rate/rhythm, Normal S1 S2, No murmurs Gastrointestinal: Normal bowel sounds, Soft and benign, Non-distended, No tenderness Musculoskeletal: No swelling, No tenderness Integumentary: No rashes, No erythema, No cyanosis Neurological: Normal speech, Normal strength at 5/5 x4 extr - Studies Microbiology Data (last 24 hrs): 03/07/21 23:40 Clean Catch Urine [place] Count - Final >100,000 CFU/ML. 03/07/21 23:40 Clean Catch Urine - Final Escherichia Coli Esbl Gram Neg Mark Assessment And Plan - Current Problems (Diagnosis) (1) COVID-19 virus infection Current Visit: Yes Status: Acute (2) Acute pyelonephritis Current Visit: Yes Status: Acute (3) Type 1 diabetes Current Visit: Yes Status: Acute (4) Hyponatremia Current Visit: Yes Status: Acute (5) Anemia Current Visit: Yes Status: Acute - Plan Change antibiotics to IV meropenem for ESBL E. coli. Symptom management, pain control. Continue IV normal saline to treat hyponatremia. Increased Novolin 70/30 to 10 units twice daily. Continue insulin sliding scale for glucose management. Monitor BMP Monitor for the next couple of days for improvement in urinary symptoms and flank pain.
[2021-03-10] MEDS: Meropenem 1 GM/100 ML BAG IV SCH (17:00)
[2021-03-10] MEDS: INSULIN GLARGINE 100 UNIT/ML SQ SCH (20:20)
[2021-03-11] MEDS: Meropenem 1 GM/100 ML BAG IV SCH ×3 (02:02→17:32)
[2021-03-11] MEDS: ONDANSETRON 4 MG/2 ML VIAL IV PRN (02:02)
[2021-03-11] MEDS: HYDROMORPHONE HCL 0.5 MG/0.5 ML INJ IV PRN ×3 (02:02→23:17)
[2021-03-11] MEDS: NA CHLORIDE 0.9% 1,000 ML IV SCH ×2 (05:04→14:40)
[2021-03-11] MEDS: HYDROCODONE/APAP 5/325 MG TAB PO PRN ×3 (05:05→20:49)
[2021-03-11 05:13] LABS: Absolute Lymphocytes (CBC) 1.3 K/uL (0.7-4.9); Hematocrit 30.1 % (36.0-45.0); Lymphocytes % 17.2 % (15.3-44.8); MPV 8.3 fL (7.6-11.3); RBC Red Blood Cell Count 3.78 M/uL (3.86-4.86)
[2021-03-11 05:31] LABS: ALT/SGPT 19 U/L (12-78); AST/SGOT 13 U/L (15-37); Albumin 1.7 g/dL (3.4-5.0); Alkaline Phosphatase 86 U/L (45-117); BUN Blood Urea Nitrogen 5 mg/dL (7-18); Bicarbonate 28 mmol/L (21-32); Bilirubin Total 0.2 mg/dL (0.2-1.0); Glucose Level 173 mg/dL (74-106); Potassium 3.7 mmol/L (3.5-5.1); Protein, Total 6.7 g/dL (6.4-8.2); Sodium Level 133 mmol/L (136-145)
[2021-03-11 06:27] LABS: Blood Morphology Comment NOT SEEN (NOT SEEN); Platelet Estimate ADEQ
[2021-03-11] MEDS: INSULIN 70/30 100 UNITS/ML SQ SCH ×2 (07:30→16:44)
[2021-03-11] MEDS ORDERED: POTASSIUM 25 MEQ EFFERV TAB PO ONE (08:00)
[2021-03-11] MEDS: ENOXAPARIN 40 MG/0.4 ML SQ SCH (08:33)
[2021-03-11] MEDS: INSULIN -REGULAR HUMAN 50 UNIT/0.5 ML ML SQ SCH ×4 (08:33→20:50)
--- NOTE | 2021-03-11 11:45 | P.CNS ---
Date of Consult: 03/11/21 Chief Complaint: Pyelonephritis History of Present Illness: The patient is a 20-year-old female who presented to the emergency department secondary to bilateral lower quadrant abdominal pain as well as lower back pain and nausea/vomiting. Patient was evaluated in the ED and incidentally found to be COVID-19 positive. Patient is vaccinated and asymptomatic at this time. Currently aerating well on room air. CT abdomen pelvis with contrast demonstrated left-sided pyelonephritic stranding consistent with pyelonephritis. Urine culture growing ESBL E. coli. IV Rocephin discontinued and meropenem started. Recommend continuing this antibiotic for 10 days. Patient will need PICC or midline placed. Patient currently reports diffuse abdominal pain/lower back pain/nausea/vomiting. Patient denies shortness of breath/just difficulty breathing/dysuria/urinary frequency/urgency/chest pain. Allergies No Known Allergies Allergy (Unverified 03/08/21 01:41) Home Medications: Insulin 70/30 NPH/Reg Human [Novolin 70/30*] 10 unit SQ BID 03/09/21 Insulin Glargine,Hum.rec.anlog [Semglee] 15 unit SQ BEDTIME 03/09/21 - Past Medical/Surgical History -: Diabetes mellitus type 1 -: None Psychosocial/ Personal History: Patient is unemployed and lives with her parents - Family History Brother Medical History: Cancer - Social History Alcohol use: No CD- Drugs: No Caffeine use: Yes Place of Residence: Home Review of Systems 10-point ROS is otherwise unremarkable Physical Examination Temp Pulse Resp BP Pulse Ox 97.1 F 77 20 157/94 H 98 03/11/21 08:00 03/11/21 08:00 03/11/21 08:00 03/11/21 08:00 03/11/21 08:00 General: Alert, In no apparent distress, Oriented x3 HEENT: Atraumatic, Normocephalic Neck: Supple Respiratory: Clear to auscultation bilaterally, Normal air movement Cardiovascular: No edema, Normal pulses, Regular rate/rhythm Gastrointestinal: Tenderness Musculoskeletal: No clubbing, No swelling, No contractures Integumentary: No rashes, No breakdown, No significant lesion, No tenderness/swelling Conclusions/Impression: Antibiotics: Meropenem Start: 03/11 Assessment/plan Pyelonephritis secondary to ESBL E. coli UTI Continue IV meropenem for 10-day duration. Patient will need PICC/midline placement COVID-19 Patient asymptomatic, continue to monitor closely. Diabetes type 1 with hyperglycemia Medical management per primary team Anemia Continue to monitor H&H -Medical management per primary team -Plan of care discussed with Dr. Lombardo Thank you for consultation
--- NOTE | 2021-03-11 14:26 | P.PN ---
Subjective Date of Service: 03/11/21 Chief Complaint: Pyelonephritis Patient she feels better today. She is tolerating diet. Physical Examination - Vital Signs Temperature: 97.9 F Blood Pressure: 150/101 Pulse: 70 Respirations: 20 Pulse Ox (%): 97 - Physical Exam General: Alert, In no apparent distress, Oriented x3 HEENT: Mucous membr. moist/pink Neck: JVD not distended Respiratory: Clear to auscultation bilaterally, Normal air movement Cardiovascular: No edema, Normal pulses, Regular rate/rhythm Gastrointestinal: Normal bowel sounds, Soft and benign, Non-distended, No tenderness Musculoskeletal: No swelling Integumentary: No rashes Neurological: Normal strength at 5/5 x4 extr Assessment And Plan - Current Problems (Diagnosis) (1) COVID-19 virus infection Current Visit: Yes Status: Acute (2) Acute pyelonephritis Current Visit: Yes Status: Acute (3) Type 1 diabetes Current Visit: Yes Status: Acute (4) Hyponatremia Current Visit: Yes Status: Acute (5) Anemia Current Visit: Yes Status: Acute - Plan Continue IV meropenem for ESBL E. coli. Hyponatremia significantly improved. Symptom management, pain control. Continue IV normal saline for hyponatremia. Novolin 70/30 15 units twice daily and insulin sliding scale for glucose management. Monitor BMP Symptoms improving. ID input appreciated. Outpatient IV antibiotics recommended. Patient is slated for 10 days of treatment with IV Invanz. PICC line ordered for outpatient antibiotics. Respiratory status is stable.
[2021-03-11] MEDS: INSULIN GLARGINE 100 UNIT/ML SQ SCH (20:50)
[2021-03-12] MEDS: NA CHLORIDE 0.9% 1,000 ML IV SCH ×2 (00:02→12:23)
[2021-03-12] MEDS: Meropenem 1 GM/100 ML BAG IV SCH ×2 (00:02→07:46)
[2021-03-12] MEDS: HYDROCODONE/APAP 5/325 MG TAB PO PRN ×3 (03:41→17:19)
[2021-03-12] MEDS: HYDROMORPHONE HCL 0.5 MG/0.5 ML INJ IV PRN (04:33)
[2021-03-12 04:38] LABS: Absolute Lymphocytes (CBC) 1.6 K/uL (0.7-4.9); Hematocrit 31.8 % (36.0-45.0); Lymphocytes % 20.7 % (15.3-44.8); MPV 7.9 fL (7.6-11.3); RBC Red Blood Cell Count 3.99 M/uL (3.86-4.86)
[2021-03-12] MEDS: ONDANSETRON 4 MG/2 ML VIAL IV PRN (06:58)
[2021-03-12 07:12] LABS: BUN Blood Urea Nitrogen 5 mg/dL (7-18); Bicarbonate 30 mmol/L (21-32); Glucose Level 167 mg/dL (74-106); Potassium 4.1 mmol/L (3.5-5.1); Sodium Level 136 mmol/L (136-145)
[2021-03-12] MEDS: INSULIN 70/30 100 UNITS/ML SQ SCH ×2 (07:44→17:21)
[2021-03-12] MEDS: INSULIN -REGULAR HUMAN 50 UNIT/0.5 ML ML SQ SCH ×3 (07:45→17:20)
[2021-03-12] MEDS: ENOXAPARIN 40 MG/0.4 ML SQ SCH (07:45)
[2021-03-12 11:22] VITALS: O2SAT 99
[2021-03-12] MEDS ORDERED: ERTAPENEM SODIUM 1 GM VIAL IVPB ONE (11:22)
[2021-03-12] MEDS ORDERED: ERTAPENEM NA 1 GM in NA CHLORIDE 0.9% 100 ML IVPB ONE (12:00)
--- NOTE | 2021-03-12 12:06 | P.PN ---
Subjective Date of Service: 03/12/21 Chief Complaint: Pyelonephritis Patient seen and examined at bedside, states she is still feeling unwell however that abdominal pain/nausea/vomiting has subsided. Review of Systems 10-point ROS is otherwise unremarkable Physical Examination - Vital Signs Temperature: 98.0 F Blood Pressure: 137/62 Pulse: 63 Respirations: 18 Pulse Ox (%): 95 Assessment And Plan - Plan Physical exam: General: Alert, In no apparent distress, Oriented x3 HEENT: Atraumatic, Normocephalic Neck: Supple Respiratory: Clear to auscultation bilaterally, Normal air movement Cardiovascular: No edema, Normal pulses, Regular rate/rhythm Gastrointestinal: Tenderness Musculoskeletal: No clubbing, No swelling, No contractures Integumentary: No rashes, No breakdown, No significant lesion, No tenderness/swelling Conclusions/Impression: Antibiotics: Meropenem Start: 03/11 Assessment/plan Pyelonephritis secondary to ESBL E. coli UTI Continue IV meropenem for 10-day duration. Patient will need PICC/midline plac ement COVID-19 Patient asymptomatic, continue to monitor closely. Diabetes type 1 with hyperglycemia Medical management per primary team Anemia Continue to monitor H&H -Medical management per primary team -Plan of care discussed with Dr. Lombardo Thank you for consultation
[2021-03-12 16:52] VITALS: BP 144/74; TEMP 97.7
--- NOTE | 2021-03-12 17:04 | P.DS ---
Admission Date: 03/08/21 Discharge Date: 03/12/21 Disposition: ROUTINE DISCHARGE Discharge Condition: FAIR Reason for Admission: Pyelonephritis - Problems (1) COVID-19 virus infection Current Visit: Yes Status: Acute (2) Acute pyelonephritis Current Visit: Yes Status: Acute (3) Type 1 diabetes Current Visit: Yes Status: Acute (4) Hyponatremia Current Visit: Yes Status: Acute (5) Anemia Current Visit: Yes Status: Acute Brief History of Present Illness: 20-year-old female with history of diabetes mellitus type 1 presents emergency department for fever, chills, left lower quadrant abdominal pain radiating around the back. Patient was evaluated in the emergency department labs were significant for white blood cell count 11.1 hemoglobin 11.3 hematocrit 34.6 sodium 121 chloride 89 BUN 33 creatinine 1.36 GFR 49 glucose 345 urine 1+ leuk esterase 1+ ketone 2+ blood nitrite negative, COVID-positive CT abdomen pelvis with IV contrast demonstrates left-sided perinephritic stranding consistent with pyelonephritis. Patient with left-sided pyelonephritis, hyponatremia, hyperglycemia, fever. She was admitted for further management. Hospital Course: Patient admitted to the medical floor and started on IV Rocephin. Her urine culture grew ESBL E. coli. Antibiotics were switched to IV meropenem. Patient symptoms improved with antibiotic. Her left flank pain nausea and vomiting all resolved. Patient tolerated diet. Seen by infectious disease who recommend a outpatient treatment with IV Invanz. Patient is discharged with IV Invanz to be given as outpatient. Vital Signs/Physical Exam: Temp Pulse Resp BP Pulse Ox 97.7 F 70 18 144/74 H 96 03/12/21 16:00 03/12/21 16:00 03/12/21 16:00 03/12/21 16:00 03/12/21 16:00 General: Alert HEENT: Mucous membr. moist/pink Neck: JVD not distended Respiratory: Clear to auscultation bilaterally, Normal air movement Cardiovascular: No edema, Regular rate/rhythm, Normal S1 S2 Gastrointestinal: Soft and benign, Non-distended, No tenderness Musculoskeletal: No swelling Integumentary: No rashes, No erythema Neurological: Normal speech, Normal strength at 5/5 x4 extr Laboratory Data at Discharge: WBC 7.90 K/uL (4.3-10.9) 03/12/21 03:38 Hgb 10.3 g/dL (12.0-15.0) L 03/12/21 03:38 Hct 31.8 % (36.0-45.0) L 03/12/21 03:38 Plt Count 401 K/uL (152-406) D 03/12/21 03:38 PT 15.8 SECONDS (9.5-12.5) H 03/08/21 00:31 INR 1.37 03/08/21 00:31 Sodium 136 mmol/L (136-145) 03/12/21 03:38 Potassium 4.1 mmol/L (3.5-5.1) 03/12/21 03:38 BUN 5 mg/dL (7-18) L 03/12/21 03:38 Creatinine 0.66 mg/dL (0.55-1.3) 03/12/21 03:38 Glucose 167 mg/dL (74-106) H 03/12/21 03:38 Magnesium Cancelled 03/07/21 22:21 Total Bilirubin 0.2 mg/dL (0.2-1.0) 03/11/21 04:19 AST 13 U/L (15-37) L 03/11/21 04:19 ALT 19 U/L (12-78) 03/11/21 04:19 Alkaline Phosphatase 86 U/L (45-117) 03/11/21 04:19 Lipase 197 U/L (73-393) 03/07/21 20:53 Home Medications: Ertapenem Na [Invanz] 1 gm IVPB DAILY 7 Days vial 03/12/21 Insulin 70/30 NPH/Reg Human [Novolin 70/30*] 10 unit SQ BID #10 ml 03/12/21 Insulin Glargine,Hum.rec.anlog [Semglee] 15 unit SQ BEDTIME #10 ml 03/12/21 New Medications: Ertapenem Na [Invanz] 1 gm IVPB DAILY 7 Days vial Insulin 70/30 NPH/Reg Human [Novolin 70/30*] 10 unit SQ BID #10 ml Insulin Glargine,Hum.rec.anlog [Semglee] 15 unit SQ BEDTIME #10 ml Physician Discharge Instructions: PROBLEM: Pyelonephritis, COVID 19 GOAL: Clear understanding of disease process INSTRUCTIONS: - Patient is to receive Invanz 1g IV once daily for 7 days. Patient is to report to the ER on Monday and Monday and report to Same Day Surgery Monday through Monday to receive IV antibiotic therapy. - PICC line is to be removed by hospital staff after IV therapy is completed - Follow up with your primary care provider in 1-2 weeks. - Return to the ER if your symptoms worsen. - Call the 4th floor at if you have any questions regarding your hospital stay. Diet: Regular Activity: As tolerated IMMUNIZATION Influenza Vaccine Indicated: No Influenza Vaccine Given: Yes Date Given: 03/08/21 Pneumonia Vaccine Indicated: No Pneumonia Vaccine Given: Yes Date Given: 03/08/21 Diet: ADA Followup: NONE,NONE [Primary Care Provider] - Time spent managing pt's care (in minutes): 36
== END 2021-03-12 18:15 | disposition home or self-care (01) | DRG 689 ==
LOC: ER 16:51 → ERHOLD 03-08 01:31 → 4TH 03-08 21:22
PROVIDERS: ADMIT Hospitalist; ATTEND Internal Medicine
DX: N10 Acute pyelonephritis (principal); U07.1 COVID-19; E87.1 Hypo-osmolality and hyponatremia; Z16.12 Extended spectrum beta lactamase (ESBL) resistance; E10.65 Type 1 diabetes mellitus with hyperglycemia; D64.9 Anemia, unspecified; B96.20 Unspecified Escherichia coli [E. coli] as the cause of diseases classified elsewhere; Z79.4 Long term (current) use of insulin; Z23 Encounter for immunization; Z56.0 Unemployment, unspecified
CPT/HCPCS: 36415; 71045; 74176; 76377; 80048; 80053; 80076; 81003; 81025; 82947; 83036; 83605; 83690; 83735; 83880; 83930; 83935; 84300; 84439; 84443; 84484; 85025; 85610; 86140; 87040; 87077; 87086; 87088; 87186; 90471; 90732; 93005; 96372; 96374; 96375; 99285; J1170; J1335; J1650; J1815; J2185; J2270; J2405; J2543; J3010; J7030; Q2035; U0003

== ENCOUNTER 2021-06-17 11:49 | Inpatient (IN) | payer SELFPAY ==
--- OUTSIDE RECORDS SUMMARY | 2021-06-17 11:53 | XMS REPORT | Continuity of Care Document ---
:2000 Author Organization [facility] Address [address] [place] [address] Care Team Providers Name Role Phone MAVERICK Gordon [facility] Primary Care P hysician Unavailable Nadine RN, Leisa Stein Attending Clinician Unavailable Nan STONER Attending Clinician Unavailable Nan Stoner DO [...] 1 03-19 ity of diabetes diabetes 00:00: [place] mellitus, mellitus, 00 Medi lynda uncontroll uncontroll Br anch ed ed Allergies, Adverse Reactions, Alerts Allergy Allergy Status Severity Reaction(s) Onset Inactive Treating Comm ents Source Name Type Date Date Clinician NO KNOWN Drug Active Univers ALLERGIE Class ity of [facility] Social History Social Habit Start Date Stop Date Quantity Comments Source Exposure to Not sure University SARS-CoV-2 [facility] (event) Branch Alcohol intake 2021-03-07 2021-03-07 Ex-drinker [facility] 00:00:00 00:00:00 (finding) [facility] Tobacco use and 2019-01-17 2019-01-17 Never used Universit y of exposure 00:00:00 00:00:00 [facility] Sex Assigned At [birth year] Universit y of 00:00:00 00:00:00 [facility] Smoking Status Start Date Stop Date Source Never smoker [facility] [facility] Medications Ordered Filled Start Stop Current Ordering Indication Dosage Frequency Signature Comments Components Source Medication Medication Date Date Medication? Clinician (SIG) Name Name ibuprofen 2021- No 600mg 600 mg, Uni vers (IBU) 03-07 Oral, ity of tablet 600 13:45: 12:39 ONCE, 1 [place] mg 00 :00 dose, On Medical 03/07/21 Branch at 0745, DELFIN Lancets 2018-02 Yes [id number] Use as Uni vers (RELION 03-21 directed ity of ULTRA THIN 00:00: [place] PLUS 00 Medical LANCETS) Branch [facility] Insulin 2018-02 Yes [id number] Use as Uni vers Syringe-Nee 03-21 directed ity of dle U-100 00:00: [place] (BD INSULIN 00 Medical SYRINGE) Branch 0.5 mL 29 gauge x 1/2" Syrg insulin NPH 2018-02 Yes [id number] 10U inject 10 Univers and regular 1-23 Units ity of human 70-30 00:00: [place] 100 unit/mL 00 skin every Me dical (70-30) 12 Branch injection (twelve) hours. Blood-Gluco 2018-02 Yes [id number] Use as Univers se Meter 03-21 directed ity of (RELION 00:00: [place] MICRO 00 Medical GLUCOSE Branch MONITOR) Kit Lancets 2018- Yes [id number] Use as Uni vers (RELION 03-21 directed ity of ULTRA THIN 00:00: [place] PLUS 00 Medical LANCETS) Branch [facility] Insulin 2018- Yes [id number] Use as Uni vers Syringe-Nee 03-21 directed ity of dle U-100 00:00: [place] (BD INSULIN 00 Medical SYRINGE) Branch 0.5 mL 29 gauge x 1/2" Syrg insulin NPH 2018- Yes [id number] 10U inject 10 Univers and regular 1-23 Units ity of human 70-30 00:00: [place] 100 unit/mL 00 skin every Me dical (70-30) 12 Branch injection (twelve) hours. Blood-Gluco 2018-02 Yes [id number] Use as Univers se Meter 03-21 directed ity of (RELION 00:00: [place] MICRO 00 Medical GLUCOSE Branch MONITOR) Kit Lancets 2018- Yes [id number] Use as Uni vers (RELION 03-21 directed ity of ULTRA THIN 00:00: [place] PLUS 00 Medical LANCETS) Branch Misc Insulin 2018-02 Yes [id number] Use as Uni vers Syringe-Nee 03-21 directed ity of dle U-100 00:00: [place] (BD INSULIN 00 Medical SYRINGE) Branch 0.5 mL 29 gauge x 1/2" Syrg insulin NPH 2018-02 Yes [id number] 10U inject 10 Univers and regular 1-23 Units ity of human 70-30 00:00: [place] 100 unit/mL 00 skin every Me dical (70-30) 12 Branch injection (twelve) hours. Blood-Gluco 2018-02 Yes [id number] Use as Univers se Meter 03-21 directed ity of (RELION 00:00: [place] MICRO 00 Medical GLUCOSE Branch MONITOR) Kit ibuprofen 2018-02 Yes [id number] 800mg Take 1 Univers 800 mg 1-21 tablet by ity of tablet 00:00: mouth [place] 00 every 8 Medical (eight) Branch hours as needed for Temp > 38.5 C (PAIN). ibuprofen 2018-02 Yes [id number] 800mg Take 1 Univers 800 mg 1-21 tablet by ity of tablet 00:00: mouth [place] 00 every 8 Medical (eight) Branch hours as needed for Temp > 38.5 C (PAIN). ibuprofen 2018-02 Yes [id number] 800mg Take 1 Univers 800 mg 1-21 tablet by ity of tablet 00:00: mouth [place] 00 every 8 Medical (eight) Branch hours as needed for Temp > 38.5 C (PAIN). Vital Signs Vital Name Observation Time Observation Value Comments Source Systolic blood 2021-03-07 12:25:00 109 mm[Hg[facility] [place] Diastolic blood 2021-03-07 12:25:00 72 mm[Hg] [facility] Heart rate 2021-03-07 12:25:00 122 /min [facility] Body temperature 2021-03-07 12:25:00 38.22 [facility] Respiratory rate 2021-03-07 12:25:00 18 /[facility] Body weight 2021-03-07 12:25:00 66.225 kg [facility] Oxygen saturation in 2021-03-07 12:25:00 98 /min University Arterial blood by [facility] Pulse oximetry [place] Procedures Procedure Date / Time Performed Performing Clinician Kyler antonio POCT GLUCOSE 2021-03-07 12:29:00 Betsy Stoner [facility] (AUTOMATED) [facility] NOTICE OF PRIVACY 2021-03-07 12:18:40 Doctor Unassigned, No [facility] PRACTICES Name [facility] CONSENT/REFUSAL FOR 2021-03-07 12:18:18 Doctor Unassigned, No [facility] DIAGNOSIS AND Name Medical [place] TREATMENT Encounters Start End Encounter Admission Attending Care Care Encounter Source Date/Time Date/Time Type Type Clinicians Facility Department ID 2021-03-08 2021-03-08 Letter DEMETRIUS Mccoy [id number] Univers 00:00:00 00:00:00 (Out) Leisa HOLLIS [id number] it y of HOSPITAL [id number] [place] as [id number] [facility] 019 Branch 2021-03-07 2021-03-07 Emergency [facility] [id number] Univers 06:32:00 06:55:00 BETSY farfan [facility] 2021-03-07 2021-03-07 Emergency [facility] [id number] Univers 06:32:00 06:55:00 Betsy SILVA [id number] ity [facility] [id number] [facility] [id number] [facility] 084 Branch 2021-03-07 2021-03-07 Orders Doctor ROMO [id number] Univers 00:00:00 00:00:00 Only UnassignedBUNNY [id number] ity of [place] [id number] [place] as [id number] [facility] 009 [place] Results Test Description Test Time Test Comments Results Result Comments Source POCT GLUCOSE (AUTOMATED) 2021-03-07 12:31:46 Test Item Value Reference Range Interpretation Comme nts POCT GLU (test code = [id number]) 359 mg/dL 70-110 H Lab Interpretation (test code = 64265-1) Abnormal [facility]
[2021-06-17] MEDS ORDERED: NA CHLORIDE 0.9% 1,000 ML ONE ×3 (12:36→18:37)
[2021-06-17] MEDS ORDERED: ONDANSETRON 4 MG/2 ML VIAL ONE ×2 (12:36→15:41)
[2021-06-17] MEDS ORDERED: FAMOTIDINE 20 MG/2 ML VIAL IV ONE (12:36)
[2021-06-17 12:41] LABS: Absolute Lymphocytes (CBC) 0.7 K/uL (0.7-4.9); Hematocrit 35.4 % (36.0-45.0); Lymphocytes % 9.2 % (15.3-44.8); MPV 8.7 fL (7.6-11.3); RBC Red Blood Cell Count 4.41 M/uL (3.86-4.86)
[2021-06-17 13:00] LABS: ALT/SGPT 22 U/L (12-78); AST/SGOT 15 U/L (15-37); Albumin 2.7 g/dL (3.4-5.0); Alkaline Phosphatase 83 U/L (45-117); BUN Blood Urea Nitrogen 12 mg/dL (7-18); Bicarbonate 26 mmol/L (21-32); Bilirubin Total 0.5 mg/dL (0.2-1.0); Glucose Level 299 mg/dL (74-106); Lipase 155 U/L (73-393); Potassium 4.1 mmol/L (3.5-5.1); Sodium Level 128 mmol/L (136-145)
[2021-06-17 13:51] LABS: SARS-COV-2 RT PCR NEGATIVE (NEGATIVE)
[2021-06-17] MEDS ORDERED: NA CHLORIDE 0.9% 500 ML ONE (14:51)
[2021-06-17 15:06] LABS: Urine Blood 3+ (Negative); Urine Glucose 3+ (Negative); Urine Protein 2+ (Negative); Urine Specific Gravity 1.015 (1.005-1.030)
[2021-06-17 15:23] LABS: Urine Bacteria 20-50 /HPF (<20); Urine Mucus 1+ /HPF (NONE SEEN); Urine RBC 20-50 /HPF (NONE SEEN)
[2021-06-17 15:27] LABS: Urine Specific Gravity/Preg 1.015 (1.005-1.030)
[2021-06-17] MEDS ORDERED: CEFTRIAXONE 1000 MG/VIAL ONE (15:40)
[2021-06-17] MEDS ORDERED: ACETAMINOPHEN 500 MG TAB ONE (15:40)
[2021-06-17] MEDS ORDERED: NA CHLORIDE 0.9% 100 ML IV ONE ×2 (15:41→16:29)
[2021-06-17] MEDS ORDERED: MORPHINE 2 MG/ML SYR ONE ×2 (15:50→19:28)
--- NOTE | 2021-06-17 16:08 | RAD REPORT ---
EXAM DESCRIPTION: CTAbdomen Pelvis W Contrast - 06/17/2021 3:54 pm CLINICAL HISTORY: Pyelonephritis, complicated COMPARISON: No comparisons TECHNIQUE: CT of the abdomen and pelvis was performed. All CT scans are performed using dose optimization technique as appropriate and may include automated exposure control or mA/KV adjustment according to patient size. FINDINGS: Lower chest: No acute abnormality. Liver: Flash fill hemangioma or other benign etiology in the right hepatic lobe only seen on the jeanne rial phase. Biliary: No biliary ductal dilatation. Stomach: No significant focal abnormality. Duodenum: No significant focal abnormality. Pancreas: No significant abnormality. Spleen: No significant abnormality. Adrenal: No suspicious lesions. Kidney/ureter: Left-sided perinephric edema, striated appearance of the left kidney, and pelviectasis . No obstructing stone is identified. Urothelial thickening is present. No fluid collections. Retroperitoneum: Reactive size retroperitoneal lymph nodes. Vascular: No aneurysm. Bowel: No significant focal abnormality. Peritoneum: No ascites or free air. Bladder: Gas is present in the bladder. Reproductive: No adnexal masses. Bones: No acute fracture. Other: n/a IMPRESSION: Left-sided pyelonephritis likely secondary to ascending urinary tract infection. No well -defined abscess identified at this time. No hydronephrosis
[2021-06-17] MEDS ORDERED: ONDANSETRON 4 MG/2 ML VIAL IV PRN (16:24)
[2021-06-17] MEDS ORDERED: ACETAMINOPHEN 500 MG TAB PO PRN (16:24)
[2021-06-17] MEDS ORDERED: PIPERACIL/TAZO 3.375 GM VIAL IV ONE (16:28)
--- NOTE | 2021-06-17 16:32 | EDPHYS ---
Physician Documentation [facility] Name: Rain Chaidez Age: 20 yrs Sex: Female : 2000 Arrival Date: 06/17/2021 Time: 11:52 Bed 6 Private MD: ED Physician Tan Díaz HPI: 06/17 13:19 This 20 yrs old Female presents to ER via Ambulatory with complaints of la1 Headache, Decreased Appetite. 13:19 The patient complains of pain to the forehead. The patient describes the headache as la1 aching. Onset: The symptoms/episode began/occurred 3 day(s) ago. Associated signs and symptoms: Pertinent positives: nausea, vomiting. Severity of symptoms: At its worst the pain was mild. Headache History: The patient has had previous headaches and this one is similar to previous episodes. MCDONALD, N/V/D, malaise since Monday. Historical: - Allergies: 11:59 No Known Allergies; ab2 - PMHx: 11:59 diabetes mellitus; ab2 - Immunization history:: Adult Immunizations up to date. - Social history:: Smoking status: Patient denies any tobacco usage or history of. ROS: 13:20 Eyes: Negative for injury, pain, redness, and discharge, ENT: Negative for injury, la1 pain, and discharge, Neck: Negative for injury, pain, and swelling, Cardiovascular: Negative for chest pain, palpitations, and edema, Respiratory: Negative for shortness of breath, cough, wheezing, and pleuritic chest pain. 13:20 Back: Negative for injury and pain, : Negative for injury, bleeding, discharge, and swelling, MS/Extremity: Negative for injury and deformity, Skin: Negative for injury, rash, and discoloration. 13:20 Constitutional: Positive for chills, fatigue, malaise. 13:20 Abdomen/GI: Positive for abdominal pain, nausea, vomiting, and diarrhea. Exam: 13:21 Constitutional: This is a well developed, well nourished patient who is awake, alert, la1 and in no acute distress. Head/Face: Normocephalic, atraumatic. Eyes: Pupils equal round and reactive to light, extra-ocular motions intact. ENT: Mucous membranes moist. Neck: Trachea midline, Supple, full range of motion without nuchal rigidity, or vertebral point tenderness. No Meningismus. Chest/axilla: Normal chest wall appearance and motion. Nontender with no deformity. No lesions are appreciated. Cardiovascular: Regular rate and rhythm with a normal S1 and S2. No gallops, murmurs, or rubs. Normal PMI, no JVD. No pulse deficits. Respiratory: Lungs have equal breath sounds bilaterally, clear to auscultation and percussion. Abdomen/GI: Soft, non-tender, with normal bowel sounds. No distension or tympany. No guarding or rebound. No evidence of tenderness throughout. Back: No spinal tenderness. No costovertebral tenderness. Full range of motion. MS/ Extremity: Pulses equal, no cyanosis. Neurovascular intact. Full, normal range of motion. Vital Signs: 11:57 BP 114 / 80; Pulse 125; Resp 17; Temp 98.5; Pulse Ox 98% on R/A; Weight 72.12 kg; ab2 Height 5 ft. 0 in. (152.40 cm); Pain 10/10; 13:30 BP 115 / 79; Pulse 93; Pulse Ox 98% on R/A; ap3 14:45 Temp 99.1; ap3 15:38 Temp 102.5(O); aa5 18:27 BP 119 / 73; Pulse 102; Temp 99.0; Pulse Ox 99% on R/A; ap3 19:15 BP 103 / 67; Pulse 95; Resp 18; Temp 97.8; Pulse Ox 99% on NC; ke1 11:57 Body Mass Index 31.05 (72.12 kg, 152.40 cm) ab2 15:38 [employer] was notified of increased temperature aa5 MDM: 12:18 Patient medically screened. la1 16:24 Data reviewed: vital signs, nurses notes, lab test result(s), radiologic studies, CT la1 scan, and as a result, I will admit patient, administer antibiotics. Data interpreted: Pulse oximetry: on room air is 98 %. Interpretation: normal. Counseling: I had a detailed discussion with the patient and/or guardian regarding: the historical points, exam findings, and any diagnostic results supporting the discharge/admit diagnosis, radiology results. 06/17 12:09 Order name: Glucose, Ancillary Testing; Complete Time: 12:18 EDMS 06/17 12:28 Order name: CBC with Diff; Complete Time: 13:09 co06/17 12:28 Order name: CMP; Complete Time: 13:09 co06/17 12:28 Order name: Lipase; Complete Time: 13:09 co06/17 12:28 Order name: Urine Microscopic Only; Complete Time: 15:35 la1 06/17 12:28 Order name: Ketone, Serum; Complete Time: 13:09 [facility] 06/17 12:30 Order name: COVID-19/FLU A+B (Document "Date of Onset" if Symptomatic); Complete Time: la1 14:05 06/17 14:55 Order name: Glucose, Ancillary Testing; Complete Time: 16:14 EDNY 06/17 15:06 Order name: Urine Dipstick-Ancillary; Complete Time: 16:14 EDNY 06/17 15:12 Order name: Urine --Ancillary (enter results); Complete Time: 16:14 [facility] 06/17 15:26 Order name: Urine Culture [facility] 06/17 16:28 Order name: CBC with Automated Diff EDNY 06/17 16:28 Order name: CBC with Automated Diff EDNY 06/17 16:28 Order name: Comprehensive Metabolic Panel [facility] 06/17 12:28 Order name: IV Saline Lock; Complete Time: 12:42 [facility] 06/17 12:28 Order name: Labs collected and sent; Complete Time: 12:43 [facility] 06/17 15:38 Order name: CT Abd/Pelvis - IV Contrast Only; Complete Time: 16:14 [facility] 06/17 16:28 Order name: CONS Physician Consult [facility] 06/17 16:28 Order name: Heart Healthy [facility] 06/17 16:28 Order name: Comprehensive Metabolic Panel [facility] 06/17 12:28 Order name: Urine Dipstick-Ancillary (obtain specimen); Complete Time: 15:12 [facility] 06/17 12:28 Order name: Urine Test (obtain specimen); Complete Time: 15:12 [facility] 06/17 14:34 Order name: Accucheck; Complete Time: 14:45 la Administered Medications: 12:39 Drug: NS 0.9% 1000 ml Route: IV; Rate: 1 bolus; Site: right antecubital; ap3 17:16 Follow up: IV Status: Completed infusion; IV Intake: 1000ml ap3 12:39 Drug: Pepcid (famotidine) 20 mg Route: IVP; Site: right antecubital; ap3 14:57 Follow up: Response: No adverse reaction ap3 12:39 Drug: Zofran (Ondansetron) 4 mg Route: IVP; Site: right antecubital; ap3 14:57 Follow up: Response: No adverse reaction ap3 12:42 Drug: NS 0.9% 1000 ml Route: IV; Rate: 1000 ml; Site: right antecubital; aa5 14:57 Follow up: IV Status: Completed infusion ap3 14:56 Drug: NS 0.9% 500 ml Route: IV; Rate: bolus; Site: right antecubital; ap3 17:15 Follow up: IV Status: Completed infusion; IV Intake: 500ml ap3 15:42 Drug: Rocephin (cefTRIAXone) 1 grams Route: IV; Rate: calculated rate; Site: right aa5 antecubital; 17:15 Follow up: IV Status: Completed infusion; IV Intake: 100ml ap3 15:42 Drug: Tylenol 1000 mg Route: PO; aa5 17:15 Follow up: Response: No adverse reaction ap3 15:43 Drug: Zofran (Ondansetron) 4 mg Route: IVP; Site: right antecubital; aa5 17:15 Follow up: Response: No adverse reaction ap3 15:48 Drug: morphine 2 mg Route: IVP; Site: right antecubital; ap3 17:15 Follow up: Response: No adverse reaction ap3 16:40 Drug: Zosyn (piperacillin-tazobactam) 3.375 grams Route: IVPB; Infused Over: 60 mins; ap3 Site: right antecubital; 17:40 Follow up: IV Status: Completed infusion; IV Intake: 100ml ap3 Disposition Summary: 06/17/21 16:31 Hospitalization Ordered Hospitalization Status: Inpatient Admission la1 Provider: Tan Gleason Location: Telemetry/MedSurg (Inpatient) la1 Condition: Stable la1 Problem: new la1 Symptoms: have improved la1 Bed/Room Type: Standard la1 Room Assignment: 207(06/17/21 18:55) mw Diagnosis - Pyelonephritis acute la1 - Diabetes mellitus due to underlying condition with hyperglycemia la1 Forms: - Medication Reconciliation Form la1 - SBAR form la1 Addendum: 06/24/2021 18:04 Co-signature as Attending Physician, Tan Díaz MD. jessy a2 Signatures: Dispatcher [employer] EDNY Jessica Zavaleta RN RN Rosalee Ortiz RN RN aa5 Jacky Wall, UTILITY PERSON-C UTILITY PERSON-[facility] Tan Díaz MD MD ma2 Latoya Ernst RN RN ap3 Aleksander Farias Jennifer [facility]7 Corrections: (The following items were deleted from the chart) 06/17 18:55 16:31 mallika jane
--- NOTE | 2021-06-17 16:32 | ER ---
Nurse's Notes [facility] Name: Rain Chaidez Age: 20 yrs Sex: Female : 2000 Arrival Date: 06/17/2021 Time: 11:52 Bed 6 Private MD: Diagnosis: Pyelonephritis acute;Diabetes mellitus due to underlying condition with hyperglycemia Presentation: 06/17 11:57 Chief complaint: Patient states: "I have been having sharp headaches since Monday night ab2 and I haven't been able to eat quite right since then." Pt c/o n/v/d and a headache. Coronavirus screen: Vaccine status: Patient reports receiving the 2nd dose of the covid vaccine. Client denies travel out of the [place] in the last 14 days. At this time, the client does not indicate any symptoms associated with coronavirus-19. Ebola Screen: Patient negative for fever greater than or equal to 101.5 degrees Fahrenheit, and additional compatible Ebola Virus Disease symptoms Patient denies exposure to infectious person. Patient denies travel to an Ebola-affected area in the 21 days before illness onset. No symptoms or risks identified at this time. Initial Sepsis Screen: Does the patient meet any 2 criteria? No. Patient's initial sepsis screen is negative. Does the patient have a suspected source of infection? No. Patient's initial sepsis screen is negative. Risk Assessment: Do you want to hurt yourself or someone else? Patient reports no desire to harm self or others. Onset of symptoms is unknown. 11:57 Method Of Arrival: Ambulatory ab2 11:57 Acuity: CHERI 3 ab2 Triage Assessment: 11:59 Headache History: The patient has had previous headaches and this one is similar to ab2 previous episodes. General: Appears in no apparent distress. uncomfortable, Behavior is calm, cooperative, appropriate for age. Pain: Complains of pain in head Pain currently is 10 out of 10 on a pain scale. Pain began 2-3 days ago. Also complains of decreased appetite. Neuro: Level of Consciousness is awake, alert, obeys commands, Oriented to person, place, time, situation, Appropriate for age Engineer Booster And Exhauster are equal bilaterally Moves all extremities. Gait is steady, Speech is normal, Reports headache. GI: Reports nausea, vomiting. Historical: - Allergies: 11:59 No Known Allergies; ab2 - PMHx: 11:59 diabetes mellitus; ab2 - Immunization history:: Adult Immunizations up to date. - Social history:: Smoking status: Patient denies any tobacco usage or history of. Screenin:29 Abuse screen: Denies threats or abuse. Nutritional screening: Has had N/V for 3 or more ap3 days. Tuberculosis screening: No symptoms or risk factors identified. Fall Risk None identified. Assessment: 12:28 General: Appears uncomfortable, Behavior is calm, cooperative. Pain: Complains of pain ap3 in abdomen and head Also complains of nausea. Neuro: Level of Consciousness is awake, alert, obeys commands, Oriented to person, place, time, situation, Appropriate for age Speech is normal. Cardiovascular: Patient's skin is warm and dry. Respiratory: Airway is patent Respiratory effort is even, unlabored, Respiratory pattern is regular, symmetrical. GI: Reports lower abdominal pain, upper abdominal pain, anorexia, nausea. 13:30 Reassessment: Patient and/or family updated on plan of care and expected duration. Pain ap3 level reassessed. Patient is alert, oriented x 3, equal unlabored respirations, skin warm/dry/pink. 15:00 Reassessment: assisted patient to a bedside commode without incident. ap3 15:38 Reassessment: Pt c/o increased abd pain, nausea, and chills. DUMP MOTORMAN was notified. . aa5 15:38 Neuro: Level of Consciousness is awake, alert, obeys commands, Oriented to person, aa5 place, time, situation. Respiratory: Airway is patent Respiratory effort is even, unlabored, Respiratory pattern is regular, symmetrical. Derm: Skin is dry, Skin is normal, Skin temperature is hot. Vital Signs: 11:57 BP 114 / 80; Pulse 125; Resp 17; Temp 98.5; Pulse Ox 98% on R/A; Weight 72.12 kg; ab2 Height 5 ft. 0 in. (152.40 cm); Pain 10/10; 13:30 BP 115 / 79; Pulse 93; Pulse Ox 98% on R/A; ap3 14:45 Temp 99.1; ap3 15:38 Temp 102.5(O); aa5 18:27 BP 119 / 73; Pulse 102; Temp 99.0; Pulse Ox 99% on R/A; ap3 19:15 BP 103 / 67; Pulse 95; Resp 18; Temp 97.8; Pulse Ox 99% on NC; ke1 11:57 Body Mass Index 31.05 (72.12 kg, 152.40 cm) ab2 15:38 DUMP MOTORMAN was notified of increased temperature aa5 ED Course: 11:52 Patient arrived in ED. as 11:59 Triage completed. ab2 12:00 Arm band placed on right wrist. ab2 12:17 Jacky Wall FNP-C is PHCP. la1 12:17 Tan Díaz MD is Attending Physician. la1 12:27 Latoya Ernst, SCAR is Primary Nurse. ap3 12:29 Patient has correct armband on for positive identification. Bed in low position. Call ap3 light in reach. Side rails up X 1. Adult w/ patient. secured entrance monitor on. Pulse ox on. NIBP on. Door closed. Noise minimized. 15:55 CT Abd/Pelvis - IV Contrast Only In Process Unspecified. EDMS 16:31 Tan Gleason MD is Hospitalizing Provider. la1 16:58 Admitting physician to see patient. ap3 19:10 No provider procedures requiring assistance completed. Patient admitted, IV remains in as6 place. Administered Medications: 12:39 Drug: NS 0.9% 1000 ml Route: IV; Rate: 1 bolus; Site: right antecubital; ap3 17:16 Follow up: IV Status: Completed infusion; IV Intake: 1000ml ap3 12:39 Drug: Pepcid (famotidine) 20 mg Route: IVP; Site: right antecubital; ap3 14:57 Follow up: Response: No adverse reaction ap3 12:39 Drug: Zofran (Ondansetron) 4 mg Route: IVP; Site: right antecubital; ap3 14:57 Follow up: Response: No adverse reaction ap3 12:42 Drug: NS 0.9% 1000 ml Route: IV; Rate: 1000 ml; Site: right antecubital; aa5 14:57 Follow up: IV Status: Completed infusion ap3 14:56 Drug: NS 0.9% 500 ml Route: IV; Rate: bolus; Site: right antecubital; ap3 17:15 Follow up: IV Status: Completed infusion; IV Intake: 500ml ap3 15:42 Drug: Rocephin (cefTRIAXone) 1 grams Route: IV; Rate: calculated rate; Site: right aa5 antecubital; 17:15 Follow up: IV Status: Completed infusion; IV Intake: 100ml ap3 15:42 Drug: Tylenol 1000 mg Route: PO; aa5 17:15 Follow up: Response: No adverse reaction ap3 15:43 Drug: Zofran (Ondansetron) 4 mg Route: IVP; Site: right antecubital; aa5 17:15 Follow up: Response: No adverse reaction ap3 15:48 Drug: morphine 2 mg Route: IVP; Site: right antecubital; ap3 17:15 Follow up: Response: No adverse reaction ap3 16:40 Drug: Zosyn (piperacillin-tazobactam) 3.375 grams Route: IVPB; Infused Over: 60 mins; ap3 Site: right antecubital; 17:40 Follow up: IV Status: Completed infusion; IV Intake: 100ml ap3 Intake: 17:15 IV: 500ml; Total: 500ml. ap3 17:15 IV: 100ml; Total: 600ml. ap3 17:16 IV: 1000ml; Total: 1600ml. ap3 17:40 IV: 100ml; Total: 1700ml. ap3 Outcome: 16:31 Decision to Hospitalize by Provider. la1 19:10 Admitted to Med/surg accompanied by tech, via wheelchair, room 207, with chart. as6 19:10 Condition: stable 20:08 Patient left the ED. ke1 Signatures: Dispatcher [employer] EDMS Kezia Lee Audri, RN RN aa5 Jacky Wall, SNOWBOARDING INSTRUCTOR-C SNOWBOARDING INSTRUCTOR-Cla1 Latoya Ernst RN RN ap3 Germain Lee RN RN as6 Aleksander Farias Kouassi RN RN ke1 Corrections: (The following items were deleted from the chart) 16:15 15:38 Temp 102.5F Oral; aa5 aa5 16:16 15:13 Reassessment: Pt c/o increased abd pain, nausea, and chills. DUMP MOTORMAN was notified. . aa5 aa5
[2021-06-17] MEDS: NA CHLORIDE 0.9% 1,000 ML IV SCH (17:00)
[2021-06-17 17:38] VITALS: BMI 30.9
[2021-06-17] MEDS: MORPHINE 2 MG/ML SYR IV PRN (19:27)
[2021-06-18] MEDS ORDERED: GLUCAGON 1 MG/VIAL IM PRN (00:17)
[2021-06-18] MEDS ORDERED: INSULIN -REGULAR HUMAN 50 UNIT/0.5 ML ML SQ ONE (00:30)
[2021-06-18 04:07] LABS: Absolute Lymphocytes (CBC) 0.9 K/uL (0.7-4.9); Lymphocytes % 11.9 % (15.3-44.8); RBC Red Blood Cell Count 3.89 M/uL (3.86-4.86)
[2021-06-18 04:17] LABS: Albumin 2.3 g/dL (3.4-5.0); Bilirubin Total 0.3 mg/dL (0.2-1.0); Potassium 3.6 mmol/L (3.5-5.1); Protein, Total 6.8 g/dL (6.4-8.2)
[2021-06-18] MEDS: NA CHLORIDE 0.9% 1,000 ML IV SCH ×3 (05:50→23:00)
[2021-06-18] MEDS: INSULIN -REGULAR HUMAN 50 UNIT/0.5 ML ML SQ SCH ×4 (10:01→20:34)
[2021-06-18] MEDS ORDERED: CEFTRIAXONE 2,000 MG in NA CHLORIDE 0.9% 100 ML IV SCH (12:00)
--- NOTE | 2021-06-18 12:31 | P.CNS ---
Date of Consult: 06/18/21 History of Present Illness: The patient is a 20 year old female with a PMH of DM type 1 (uncontrooled) who presented to the ED from home secondary to diffuse abdominal pain and N/V/D. She states that her symptoms started about two days ago, and states the pain became so severe she had difficulty ambulating. Of note she was hospitalized at this facility from 03/08/21-03/12/21 secondary to left sided pyelonephritis. She was treated with 10 days of carbapenem antibiotics. On admission, UA was grossly positive with ketones present. Glucose was elevated at 295 with normal serum anion gap. CT abdomen and pelvis showed left sided pyelonephritis without abscess or hydronephrosis. In ED she received one dose of rocephin and one dose of zosyn. Due to her HX of ESBl e coli infections we have started IV merum. Allergies No Known Allergies Allergy (Verified 03/15/21 14:34) Home Medications: Insulin 70/30 NPH/Reg Human [Novolin 70/30*] 15 unit SQ DAILY 06/17/21 Insulin Glargine,Hum.rec.anlog [Semglee] 10 unit SQ BEDTIME 06/17/21 - Past Medical/Surgical History Diabetic: Yes -: Diabetes mellitus type 1 -: None Psychosocial/ Personal History: Patient is unemployed and lives with her parents - Family History Brother Medical History: Cancer - Social History Alcohol use: No CD- Drugs: No Caffeine use: Yes Place of Residence: Home Review of Systems 10-point ROS is otherwise unremarkable Physical Examination Temp Pulse Resp BP Pulse Ox 99.4 F 117 H 18 122/69 97 06/18/21 08:00 06/18/21 08:00 06/18/21 08:00 06/18/21 08:00 06/18/21 08:00 General: Alert, In no apparent distress, Oriented x3, Obese, Other HEENT: Atraumatic, Normocephalic Neck: Supple, JVD not distended Respiratory: Clear to auscultation bilaterally, Normal air movement Cardiovascular: No edema, Normal pulses Gastrointestinal: Normal bowel sounds, Hypoactive, Soft and benign Musculoskeletal: No clubbing, No swelling, No contractures Integumentary: No rashes, No breakdown Neurological: Normal speech Laboratory Data (last 24 hrs) 06/17/21 12:30: Sodium 128 L, Potassium 4.1, BUN 12, Creatinine 0.90, Glucose 299 H, Total Bilirubin 0.5, AST 15, ALT 22, Alkaline Phosphatase 83, Lipase 155 06/17/21 12:30: WBC 7.7, Hgb 11.9 L, Hct 35.4 L, Plt Count 191 Conclusions/Impression: Antibiotics: merum: 06/18-current Assessment/Plan: Recurrent left sided pyelonephritis -patient was hospitalized from 03/08/21-03/12/21 secondary to left sided peylonephritis. -recommend extending course of antibiotics to 14 days -hx of ESBL E. coli, continue merum at this time. UC pending. DM tpe 1 -uncontrolled. -patient needs assistance accessing resources to help her managing her DM. She is uninsured and state she cant afford traditional treatment.Will need social work assistance. -A1c pending -continue SSI Anemia -continue to monitor H&H Plan of care discussed with Dr. Lombardo Thank you for consultation
[2021-06-18] MEDS: Meropenem 1,000 MG in NA CHLORIDE 0.9% 100 ML IV SCH ×2 (12:51→17:38)
[2021-06-18] MEDS: MORPHINE 2 MG/ML SYR IV PRN ×2 (12:52→20:38)
--- NOTE | 2021-06-18 15:12 | P.HP ---
Certification for Inpatient Patient admitted to: Inpatient With expected LOS: >2 Midnights Patient will require the following post-hospital care: None Practitioner: I am a practitioner with admitting privileges, knowledge of patient current condition, hospital course, and medical plan of care. Services: Services provided to patient in accordance with Admission requirements found in Title 42 Section 412.3 of the Code of Federal Regulations Patient History Date of Service: 06/17/21 Reason for admission: Pyelonephritis-MDR History of Present Illness: Patient is a 20-year-old female came to the hospital with abdominal pain. Patient was found to have pyelonephritis. Patient has a history of pyelonephritis has been treated with meropenem. Patient has a history of diabetes. She is poorly controlled. She had a CT scan done which showed evidence of pyelonephritis once again. Her UA only had 5-10 white blood cells but a lot of bacteria. She will be admitted to the hospital for further evaluation. Allergies No Known Allergies Allergy (Verified 03/15/21 14:34) Home Medications: Insulin 70/30 NPH/Reg Human [Novolin 70/30*] 15 unit SQ DAILY 06/17/21 Insulin Glargine,Hum.rec.anlog [Semglee] 10 unit SQ BEDTIME 06/17/21 - Past Medical/Surgical History Diabetic: Yes -: Diabetes mellitus type 1 -: None Psychosocial/ Personal History: Patient is unemployed and lives with her parents - Family History Brother Medical History: Cancer - Social History Alcohol use: No CD- Drugs: No Caffeine use: Yes Place of Residence: Home Review of Systems 10-point ROS is otherwise unremarkable Physical Examination - Vital Signs Temperature: 99.4 F Blood Pressure: 122/69 Pulse: 117 Respirations: 18 Pulse Ox (%): 97 - Physical Exam General: Alert, In no apparent distress, Oriented x3 HEENT: Atraumatic, PERRLA, Mucous membr. moist/pink, EOMI, Sclerae nonicteric Neck: Supple, 2+ carotid pulse no bruit, No LAD, Without JVD or thyroid abnormality Respiratory: Clear to auscultation bilaterally, Normal air movement Cardiovascular: Regular rate/rhythm, Normal S1 S2, No murmurs Gastrointestinal: Normal bowel sounds, Hypoactive, Soft and benign, No rebound, No guarding, Tenderness Musculoskeletal: No clubbing, No swelling, No tenderness Integumentary: No rashes Neurological: Normal gait, Normal speech, Normal strength at 5/5 x4 extr, Normal tone, Sensation intact, Normal affect Lymphatics: No axilla or inguinal lymphadenopathy Assessment & Plan - Problems (Diagnosis) (1) Acute pyelonephritis Current Visit: No Status: Acute (2) Type 1 diabetes Current Visit: No Status: Acute - Plan -IV antibiotics -IV fluids -Outpatient urology consultation -Await for microbiology -Antiemetics Discharge Plan: Home Plan to discharge in: Greater than 2 days - Advance Directives Does patient have a Living Will: No Does patient have a Durable POA for Healthcare: No - Code Status/Comfort Care Code Status Assessed: Yes Code Status: Full Code Critical Care: No Time Spent Managing PTS Care (In Minutes): 45
[2021-06-18] MEDS ORDERED: ACETAMINOPHEN 500 MG TAB PO ONE (17:30)
[2021-06-19] MEDS: MORPHINE 2 MG/ML SYR IV PRN ×3 (01:16→12:35)
[2021-06-19] MEDS: Meropenem 1,000 MG in NA CHLORIDE 0.9% 100 ML IV SCH ×3 (01:23→17:15)
[2021-06-19] MEDS: NA CHLORIDE 0.9% 1,000 ML IV SCH ×2 (06:00→17:16)
[2021-06-19] MEDS: INSULIN -REGULAR HUMAN 50 UNIT/0.5 ML ML SQ SCH ×4 (08:30→20:34)
[2021-06-19] MEDS ORDERED: CEFTRIAXONE 2,000 MG in NA CHLORIDE 0.9% 100 ML IV SCH (09:00)
--- NOTE | 2021-06-19 10:49 | P.DS ---
Discharge Date: 06/19/21 Disposition: ROUTINE DISCHARGE Discharge Condition: GOOD Reason for Admission: Pyelonephritis-MDR - Problems (1) Acute pyelonephritis Current Visit: No Status: Acute (2) Type 1 diabetes Current Visit: No Status: Acute Brief History of Present Illness: Patient is a 20-year-old female came to the hospital with abdominal pain. Patient was found to have pyelonephritis. Patient has a history of pyelonephritis has been treated with meropenem. Patient has a history of diabetes. She is poorly controlled. She had a CT scan done which showed evidence of pyelonephritis once again. Her UA only had 5-10 white blood cells but a lot of bacteria. She will be admitted to the hospital for further evaluation. Vital Signs/Physical Exam: Temp Pulse Resp BP Pulse Ox 99.4 F 117 H 18 122/69 97 06/19/21 10:49 06/19/21 10:49 06/19/21 10:49 06/19/21 10:49 06/19/21 10:49 Laboratory Data at Discharge: WBC 7.2 K/uL (4.3-10.9) 06/18/21 03:15 Hgb 10.6 g/dL (12.0-15.0) L 06/18/21 03:15 Hct 31.0 % (36.0-45.0) L 06/18/21 03:15 Plt Count 171 K/uL (152-406) 06/18/21 03:15 Sodium 132 mmol/L (136-145) L 06/18/21 03:15 Potassium 3.6 mmol/L (3.5-5.1) 06/18/21 03:15 BUN 10 mg/dL (7-18) 06/18/21 03:15 Creatinine 0.83 mg/dL (0.55-1.3) 06/18/21 03:15 Glucose 269 mg/dL (74-106) H 06/18/21 03:15 Total Bilirubin 0.3 mg/dL (0.2-1.0) 06/18/21 03:15 AST 16 U/L (15-37) 06/18/21 03:15 ALT 22 U/L (12-78) 06/18/21 03:15 Alkaline Phosphatase 70 U/L (45-117) 06/18/21 03:15 Lipase 155 U/L (73-393) 06/17/21 12:30 Home Medications: Insulin 70/30 NPH/Reg Human [Novolin 70/30*] 15 unit SQ DAILY 06/17/21 Insulin Glargine,Hum.rec.anlog [Breanna] 10 unit SQ BEDTIME 06/17/21 Followup: NONE,NONE [Primary Care Provider] -
--- NOTE | 2021-06-19 10:49 | P.PN ---
Subjective Date of Service: 06/18/21 Patient symptoms continue to improve. Clinically patient is doing better. Review of Systems 10-point ROS is otherwise unremarkable Physical Examination - Vital Signs Temperature: 99.4 F Blood Pressure: 122/69 Pulse: 117 Respirations: 18 Pulse Ox (%): 97 - Physical Exam General: Alert, In no apparent distress HEENT: Atraumatic, PERRLA, EOMI Neck: Supple, JVD not distended Respiratory: Clear to auscultation bilaterally, Normal air movement Cardiovascular: Regular rate/rhythm, Normal S1 S2 Gastrointestinal: Normal bowel sounds, No tenderness Musculoskeletal: No tenderness Integumentary: No rashes Neurological: Normal speech, Normal tone, Normal affect Lymphatics: No axilla or inguinal lymphadenopathy - Studies Medications List Reviewed: Yes Assessment & Plan - Problems (Diagnosis) (1) Acute pyelonephritis Current Visit: No Status: Acute (2) Type 1 diabetes Current Visit: No Status: Acute - Plan Continue with plan of care as mentioned below: -IV antibiotics -IV fluids -Outpatient urology consultation -Await for microbiology -Antiemetics Discharge Plan: Home Plan to discharge in: Greater than 2 days - Advance Directives Does patient have a Living Will: No Does patient have a Durable POA for Healthcare: No - Code Status/Comfort Care Code Status: Full Code Critical Care: No Time Spent Managing PTS Care (In Minutes): 35
[2021-06-20] MEDS: Meropenem 1,000 MG in NA CHLORIDE 0.9% 100 ML IV SCH ×2 (00:32→08:33)
[2021-06-20] MEDS: NA CHLORIDE 0.9% 1,000 ML IV SCH (05:26)
[2021-06-20] MEDS: INSULIN -REGULAR HUMAN 50 UNIT/0.5 ML ML SQ SCH ×2 (08:15→12:20)
[2021-06-20] MEDS: MORPHINE 2 MG/ML SYR IV PRN (08:34)
[2021-06-20 12:04] VITALS: O2SAT 96
[2021-06-20 12:25] VITALS: BP 97/61; TEMP 97.2
--- NOTE | 2021-06-20 12:48 | RAD REPORT ---
EXAM DESCRIPTION: CT - Abdomen Pelvis W Contrast - 06/20/2021 12:29 pm CLINICAL HISTORY: pyelonephritis COMPARISON: Abdomen Pelvis W Contrast dated 06/17/2021; Stone Protocol dated 03/07/2021 TECHNIQUE: Biphasic, helical CT imaging of the abdomen and pelvis was performed following 100 ml non -ionic IV contrast. No oral contrast administered. All CT scans are performed using dose optimization technique as appropriate and may include automated exposure control or mA/KV adjustment according to patient size. FINDINGS: Trace amount of bilateral pleural fluid have developed. No pericardial effusion. In the posterolateral right lobe liver segment VII there is a subcapsular 16 millimeter area of homog eneous enhancement on the arterial phase imaging. This is isodense on venous phase imaging and is bel ieved to be a flash hemangioma unchanged from the very recent 06/20/2021 exam. Similar enhancing mass in the midline left lobe is seen also believed be incidental flash hemangioma. Pancreas and spleen s how no new or suspicious finding. Gallbladder is contracted. No biliary tree dilatation. Edema of the left kidney has substantially improved from the June 17 study. Areas of abnormal enhanc ement in the lower half of the left kidney are present but decreased in prominence from the prior exa mination. No evidence for developing abscess or emergent perinephric finding. Ureteritis findings are also improved. No obstructing calculus is identifiable. Air remains in the lumen of the urinary blad diana. This could be from infection or catheterization procedure. Irvin of the urinary bladder are slig htly thickened. A component of cystitis is not excluded. There is no stranding in the adjacent fat. N o adrenal abnormalities. Uterus and ovaries show no suspicious findings. No dilated bowel loops or bowel wall thickening. No free air or pneumatosis. Trace amount of free fl uid is seen in the inferior aspect of the left pericolic gutter No hernia, mass or bulky lymphadenop athy. No suspicious bony findings. IMPRESSION: Left-sided pyelonephritis has significantly improved but not fully resolved since 2021 imaging. There is no evidence for developing abscess or other post infection complication. Ureteritis findings are nearly fully resolved. There is no obstructing calculus. Urinary bladder irvin appear slightly thickened but the bladder is only partially filled. The patient may have had a component cystitis along with the pyelonephritis findings. Air in the urinary bladder lumen has not changed.
== END 2021-06-20 16:27 | disposition home or self-care (01) | DRG 690 ==
LOC: ER 11:49 → ERHOLD 16:24 → 2ND 19:09
PROVIDERS: ADMIT Hospitalist; ATTEND Hospitalist
DX: N10 Acute pyelonephritis (principal); E10.65 Type 1 diabetes mellitus with hyperglycemia; Z79.4 Long term (current) use of insulin; Z59.7 Insufficient social insurance and welfare support; Z20.822 Contact with and (suspected) exposure to COVID-19
CPT/HCPCS: 0240U; 36415; 74177; 80053; 81003; 81015; 81025; 82010; 82947; 83036; 83690; 85025; 87077; 87086; 87088; 87186; 96361; 96365; 96375; 99285; J1815; J2185; J2270; J2405; J2543; J3490; J7030; J7040; Q9967

== ENCOUNTER 2021-08-15 22:35 | Emergency (ER) | payer SELFPAY ==
--- OUTSIDE RECORDS SUMMARY | 2021-08-15 22:38 | XMS REPORT | Continuity of Care Document ---
:2000 Author Organization [facility] Address [address] [place] [address] Care Team Providers Name Role Phone MAVERICK Gordon [facility] Primary Care P hysician Unavailable Nadine [...] 1 03-19 ity of diabetes diabetes 00:00: [place] mellitus, mellitus, 00 Medi lynda uncontroll uncontroll Br anch ed ed Allergies, Adverse Reactions, Alerts Allergy Allergy Status Severity Reaction(s) Onset Inactive Treating Comm ents Source Name Type Date Date Clinician NO KNOWN Drug Active Univers ALLERGIE Class ity of S [facility] Social History Social Habit Start Date Stop Date Quantity Comments Source Exposure to Not sure [facility] SARS-CoV-2 [facility] (event) Branch Alcohol intake 2021-03-07 2021-03-07 Ex-drinker [facility] 00:00:00 00:00:00 (finding) [facility] Tobacco use and 2019-01-17 2019-01-17 Never used Universit y of exposure 00:00:00 00:00:00 [facility] Sex Assigned At [birth year] Universit y of 00:00:00 00:00:00 [facility] Smoking Status Start Date Stop Date Source Never smoker [facility] Medications Ordered Filled Start Stop Current Ordering Indication Dosage Frequency Signature Comments Components Source Medication Medication Date Date Medication? Clinician (SIG) Name Name ibuprofen 2021- No 600mg 600 mg, Uni vers (IBU) 03-07 Oral, ity of tablet 600 13:45: 12:39 ONCE, 1 [place] mg 00 :00 dose, On Medical 03/07/21 Branch at 0745, DELFIN Lancets 2018-02 Yes [id number] Use as Uni vers (RELION 03-21 directed ity of ULTRA THIN 00:00: [place] PLUS 00 Medical LANCETS) Branch [facility] Insulin 2018-02 Yes [id number] Use as Uni vers Syringe-Nee 03-21 directed ity of dle U-100 00:00: [place] (BD INSULIN 00 Medical SYRINGE) Branch 0.5 mL 29 gauge x 1/2" Syrg insulin NPH 2018-02 Yes [id number] 10U inject 10 Univers and regular 1-23 Units ity of human 70-30 00:00: [place] 100 unit/mL 00 skin every Me dical (70-30) 12 Branch injection (twelve) hours. Blood-Gluco 2018-02 Yes [id number] Use as Univers se Meter 03-21 directed ity of (RELION 00:00: [place] MICRO 00 Medical GLUCOSE Branch MONITOR) Kit Lancets 2018- Yes [id number] Use as Uni vers (RELION 03-21 directed ity of ULTRA THIN 00:00: [place] PLUS 00 Medical LANCETS) Branch [facility] Insulin 2018- Yes [id number] Use as Uni vers Syringe-Nee 03-21 directed ity of dle U-100 00:00: [place] (BD INSULIN 00 Medical SYRINGE) Branch 0.5 mL 29 gauge x 1/2" Syrg insulin NPH 2018- Yes [id number] 10U inject 10 Univers and regular 1-23 Units ity of human 70-30 00:00: [place] 100 unit/mL 00 skin every Me dical (70-30) 12 Branch injection (twelve) hours. Blood-Gluco 2018-02 Yes [id number] Use as Univers se Meter 03-21 directed ity of (RELION 00:00: [place] MICRO 00 Medical GLUCOSE Branch MONITOR) Kit Lancets 2018- Yes [id number] Use as Uni vers (RELION 03-21 directed ity of ULTRA THIN 00:00: [place] PLUS 00 Medical LANCETS) Branch Misc Insulin 2018-02 Yes [id number] Use as Uni vers Syringe-Nee 03-21 directed ity of dle U-100 00:00: [place] (BD INSULIN 00 Medical SYRINGE) Branch 0.5 mL 29 gauge x 1/2" Syrg insulin NPH 2018-02 Yes [id number] 10U inject 10 Univers and regular 1-23 Units ity of human 70-30 00:00: [place] 100 unit/mL 00 skin every Me dical (70-30) 12 Branch injection (twelve) hours. Blood-Gluco 2018-02 Yes [id number] Use as Univers se Meter 03-21 directed ity of (RELION 00:00: [place] MICRO 00 Medical GLUCOSE Branch MONITOR) Kit ibuprofen 2018-02 Yes [id number] 800mg Take 1 Univers 800 mg 1-21 tablet by ity of tablet 00:00: mouth [place] 00 every 8 Medical (eight) Branch hours as needed for Temp > 38.5 C (PAIN). ibuprofen 2018-02 Yes [id number] 800mg Take 1 Univers 800 mg 1-21 tablet by ity of tablet 00:00: mouth [place] 00 every 8 Medical (eight) Branch hours as needed for Temp > 38.5 C (PAIN). ibuprofen 2018-02 Yes [id number] 800mg Take 1 Univers 800 mg 1-21 tablet by ity of tablet 00:00: mouth [place] 00 every 8 Medical (eight) Branch hours as needed for Temp > 38.5 C (PAIN). Vital Signs Vital Name Observation Time Observation Value Comments Source Systolic blood 2021-03-07 12:25:00 109 mm[Hg] [facility] Diastolic blood 2021-03-07 12:25:00 72 mm[Hg] [facility] Heart rate 2021-03-07 12:25:00 122 /min [facility] Body temperature 2021-03-07 12:25:00 38.22 Cecilia [facility] Respiratory rate 2021-03-07 12:25:00 18 /min [facility] Body weight 2021-03-07 12:25:00 66.225 kg [facility] Oxygen saturation in 2021-03-07 12:25:00 98 /min University Arterial blood by [facility] Pulse oximetry [place] Procedures Procedure Date / Time Performed Performing Clinician Kyler antonio POCT GLUCOSE 2021-03-07 12:29:00 Betsy Stoner [facility] (AUTOMATED) [facility] NOTICE OF PRIVACY 2021-03-07 12:18:40 Doctor Unassigned, No [facility] PRACTICES Name [facility] CONSENT/REFUSAL FOR 2021-03-07 12:18:18 Doctor Unassigned, No [facility] DIAGNOSIS AND Name Medical [place] TREATMENT Encounters Start End Encounter Admission Attending Care Care Encounter Source Date/Time Date/Time Type Type Clinicians Facility Department ID 2021-03-08 2021-03-08 Letter DEMETRIUS Mccoy [id number] Univers 00:00:00 00:00:00 (Out) Leisa HOLLIS [id number] it y of HOSPITAL [id number] [place] [id number] [facility] 019 Branch 2021-03-07 2021-03-07 Emergency [facility] [id number] Univers 06:32:00 06:55:00 BETSY farfan [facility] 2021-03-07 2021-03-07 Emergency [facility] [id number] Univers 06:32:00 06:55:00 Betsy SILVA [id number] ity [facility] [id number] [facility] [phone] [facility] 084 Branch 2021-03-07 2021-03-07 Orders Doctor ROMO [id number] Univers 00:00:00 00:00:00 Only UnassignedBUNNY [id number] ity of [place] [id number] [place] as [id number] [facility] 009 [place] Results Test Description Test Time Test Comments Results Result Comments Source POCT GLUCOSE (AUTOMATED) 2021-03-07 12:31:46 Test Item Value Reference Range Interpretation Comme nts POCT GLU (test code = [id number]) 359 mg/dL 70-110 H Lab Interpretation (test code = 70250-0) Abnormal [facility]
[2021-08-15 23:28] LABS: Urine Blood 1+ (Negative); Urine Glucose Negative (Negative); Urine Protein 1+ (Negative); Urine Specific Gravity >=1.030 (1.005-1.030)
[2021-08-15 23:39] LABS: Absolute Lymphocytes (CBC) 2.1 K/uL (0.7-4.9); Hematocrit 37.2 % (36.0-45.0); Lymphocytes % 23.6 % (15.3-44.8); MPV 8.6 fL (7.6-11.3); RBC Red Blood Cell Count 4.71 M/uL (3.86-4.86)
[2021-08-15 23:58] LABS: Albumin 3.5 g/dL (3.4-5.0); Bilirubin Total 0.3 mg/dL (0.2-1.0); Potassium 3.8 mmol/L (3.5-5.1); Protein, Total 7.5 g/dL (6.4-8.2)
[2021-08-16] MEDS ORDERED: CIPROFLOXACIN 400mg IV 400 MG/200 ML BAG IV ONE (00:34)
[2021-08-16] MEDS ORDERED: KETOROLAC 30 MG/ML INJ ONE (00:34)
--- NOTE | 2021-08-16 01:51 | EDPHYS ---
Physician Documentation [facility] Name: Rain Chaidez Age: 20 yrs Sex: Female : 2000 Arrival Date: 08/15/2021 Time: 22:38 Bed 13 Private MD: ED Physician Manolo Dumas HPI: 08/15 22:52 This 20 yrs old Female presents to ER via Unassigned with complaints of rn Abdominal Pain. 22:52 The patient presents with abdominal pain in the left lower quadrant. Onset: The rn symptoms/episode began/occurred today. The symptoms do not radiate. Associated signs and symptoms: Pertinent negatives: nausea and vomiting, blood in stools, constipation, diarrhea, dysuria, fever, hematuria, shortness of breath, vaginal discharge, vomiting blood. The symptoms are described as achy, intermittent. Modifying factors: The symptoms are alleviated by nothing, the symptoms are aggravated by touching the area. Severity of pain: At its worst the pain was moderate in the emergency department the pain is unchanged. The patient has not experienced similar symptoms in the past. The patient has not recently seen a physician. 22:52 Pt denies sick contacts, had abd pain earlier, went away with motrin, came back tonight rn so came in. Currently ending menstrual period, no hx of ovarian cyst, mainly left sided pain, no sick contacts, and no vomiting/diarrhea. No fever. Does not know if .. Historical: - Allergies: 22:53 No Known Allergies; jb4 - Home Meds: 22:53 Lantus U-100 Insulin 100 unit/mL Sub-Q crtg [Active]; Novolin 70/30 InnoLet Insulin 100 jb4 unit/mL (70-30) Sub-Q inpn [Active]; - PMHx: 22:53 diabetes mellitus; jb4 - PSHx: 22:53 None; jb4 - Immunization history:: Adult Immunizations up to date. - Social history:: Smoking status: Patient denies any tobacco usage or history of. - Family history:: not pertinent. - Hospitalizations: : No recent hospitalization is reported. ROS: 22:52 Constitutional: Negative for fever, chills, and weight loss, Eyes: Negative for injury, rn pain, redness, and discharge, Neck: Negative for injury, pain, and swelling, Cardiovascular: Negative for chest pain, palpitations, and edema, Respiratory: Negative for shortness of breath, cough, wheezing, and pleuritic chest pain, Abdomen/GI: + left sided abd pain, neg for vomiting/diarrhea/constipation/blood in stool Back: Negative for injury and pain, : Negative for injury, bleeding, discharge, and swelling, MS/Extremity: Negative for injury and deformity, Skin: Negative for injury, rash, and discoloration, Neuro: Negative for headache, weakness, numbness, tingling, and seizure. Exam: 22:52 Constitutional: This is a well developed, well nourished patient who is awake, alert, rn and in no acute distress. Head/Face: Normocephalic, atraumatic. Cardiovascular: Regular rate and rhythm. No pulse deficits. Respiratory: No increased work of breathing, no retractions or nasal flaring. Abdomen/GI: Soft, +mild LLQ and lUQ tenderness, no rebound or masses Skin: Warm, dry with normal turgor. Normal color with no rashes, no lesions, and no evidence of cellulitis. MS/ Extremity: Pulses equal, no cyanosis. Neurovascular intact. Full, normal range of motion. Equal circumference. Neuro: Awake and alert, GCS 15 Vital Signs: 22:51 BP 153 / 103; Pulse 87; Resp 16; Temp 97.7(TE); Pulse Ox 99% on R/A; Weight 71.67 kg jb4 (R); Height 5 ft. 0 in. (152.40 cm) (R); Pain 9/10; 22:51 Body Mass Index 30.86 (71.67 kg, 152.40 cm) jb4 MDM: 22:40 Patient medically screened. rn 08/16 01:48 Differential diagnosis: diverticulitis, Ectopic , Endometriosis, non-specific rn abd pain, Ovarian Torsion, Pyelonephritis, Ureterolithiasis, urinary tract infection. Data reviewed: vital signs, nurses notes, lab test result(s), radiologic studies, CT scan, ultrasound, and as a result, I will discharge patient. Counseling: I had a detailed discussion with the patient and/or guardian regarding: the historical points, exam findings, and any diagnostic results supporting the discharge/admit diagnosis, lab results, radiology results, the need for outpatient follow up, to return to the emergency department if symptoms worsen or persist or if there are any questions or concerns that arise at home. Response to treatment: the patient's symptoms have markedly improved after treatment, and as a result, I will discharge patient. Special discussion: I discussed with the patient/guardian in detail that at this point there is no indication for admission to the hospital. It is understood, however, that if the symptoms persist or worsen the patient needs to return immediately for re-evaluation. ED course: Pt markedly improved, U/S showed small ovarian cyst but good flow, no torsion. CT shows cystitis and questionable pyelonephritis. Normal WBC, afebrile, stable vitals. After discussion with patient regarding benefits/risks, patient would like to go home with abx and understands return precautions.. 08/15 22:51 Order name: CBC with Diff; Complete Time: 23:56 rn 08/15 22:51 Order name: CMP; Complete Time: 23:58 08/15 22:51 Order name: Lipase; Complete Time: 23:58 08/15 22:51 Order name: CT Abd/Pelvis - IV Contrast Only rn 08/15 23:28 Order name: Urine Dipstick-Ancillary; Complete Time: 23:56 EDMS 08/15 22:51 Order name: IV Saline Lock; Complete Time: 23:21 rn 08/15 22:51 Order name: Labs collected and sent; Complete Time: 23:21 rn 08/15 22:51 Order name: Urine Dipstick-Ancillary (obtain specimen); Complete Time: 23:29 rn 08/15 22:51 Order name: Urine Test (obtain specimen); Complete Time: 23:29 rn 08/15 22:51 Order name: US Pelvis Complete rn Administered Medications: 00:44 Drug: Cipro (ciprofloxacin) 400 mg Volume: 200 ml; Route: IVPB; Infused Over: 60 mins; ke1 Site: right hand; 01:45 Follow up: Response: Marked relief of symptoms ke1 01:45 Follow up: IV Status: Completed infusion ke1 00:44 Drug: Ketorolac 30 mg Route: IVP; Site: right hand; ke1 01:15 Follow up: Response: Marked relief of symptoms ke1 Disposition Summary: 08/16/21 01:50 Discharge Ordered Location: Home rn Problem: new rn Symptoms: have improved rn Condition: Stable rn Diagnosis - UTI/ Urinary tract infection, site not specified rn - Other ovarian cysts rn - Pyelonephritis acute rn Followup: rn - With: Private Physician - When: As needed - Reason: Recheck today's complaints, Re-evaluation by your physician Discharge Instructions: - Discharge Summary Sheet rn - Ovarian Cyst rn - Urinary Tract Infection, Adult rn - Pyelonephritis, Adult rn Forms: - Medication Reconciliation Form rn - Thank You Letter rn - Antibiotic internet retailer - Prescription Opioid Use rn Prescriptions: - levofloxacin 750 mg Oral Tablet - take 1 tablet by ORAL route once daily for 10 days; 10 tablet; Refills: 0, rn Product Selection Permitted Signatures: Dispatcher [employer] EDMS Manolo Dumas MD MD rn Bryson, James RN RN jb4 Moises Galan RN RN ke1
--- NOTE | 2021-08-16 01:51 | ER ---
Nurse's Notes [facility] Name: Rain Chaidez Age: 20 yrs Sex: Female : 2000 Arrival Date: 08/15/2021 Time: 22:38 Bed 13 Private MD: Diagnosis: UTI/ Urinary tract infection, site not specified;Other ovarian cysts;Pyelonephritis acute Presentation: 08/15 22:51 Chief complaint: Patient states: I started having lower abdominal pain and nausea jb4 around 3pm. Coronavirus screen: At this time, the client does not indicate any symptoms associated with coronavirus-19. Ebola Screen: No symptoms or risks identified at this time. Initial Sepsis Screen: Does the patient meet any 2 criteria? No. Patient's initial sepsis screen is negative. Does the patient have a suspected source of infection? Yes: Acute abdominal pain. Risk Assessment: Do you want to hurt yourself or someone else? Patient reports no desire to harm self or others. Onset of symptoms was August 15, 2021. Transition of care: patient was not received from another setting of care. 22:51 Method Of Arrival: Ambulatory jb4 22:51 Acuity: CHERI 3 jb4 Triage Assessment: 23:21 General: Appears uncomfortable, Behavior is appropriate for age. ke1 Historical: - Allergies: 22:53 No Known Allergies; jb4 - Home Meds: 22:53 Lantus U-100 Insulin 100 unit/mL Sub-Q crtg [Active]; Novolin 70/30 InnoLet Insulin 100 jb4 unit/mL (70-30) Sub-Q inpn [Active]; - PMHx: 22:53 diabetes mellitus; jb4 - PSHx: 22:53 None; jb4 - Immunization history:: Adult Immunizations up to date. - Social history:: Smoking status: Patient denies any tobacco usage or history of. - Family history:: not pertinent. - Hospitalizations: : No recent hospitalization is reported. Screenin:21 Abuse screen: Denies threats or abuse. Nutritional screening: No deficits noted. ke1 Tuberculosis screening: No symptoms or risk factors identified. Fall Risk None identified. Assessment: 08/16 00:45 Pain: Complains of pain in pelvis Pain currently is 7 out of 10 on a pain scale. GI: ke1 Bowel sounds diminished in right lower quadrant Abd is soft and non tender. 00:45 Neuro: Level of Consciousness is awake, alert, Oriented to person, place, time, ke1 situation. 01:30 Reassessment: Patient states feeling better. Patient states symptoms have improved. ke1 Vital Signs: 08/15 22:51 BP 153 / 103; Pulse 87; Resp 16; Temp 97.7(TE); Pulse Ox 99% on R/A; Weight 71.67 kg jb4 (R); Height 5 ft. 0 in. (152.40 cm) (R); Pain 9/10; 22:51 Body Mass Index 30.86 (71.67 kg, 152.40 cm) jb4 ED Course: 22:38 Patient arrived in ED. ja2 22:40 Manolo Dumas MD is Attending Physician. rn 22:46 Moises Galan RN is Primary Nurse. ke1 22:53 Triage completed. jb4 22:53 Arm band placed on right wrist. jb4 23:00 Bed in low position. ke1 23:20 Inserted saline lock: 20 gauge in left antecubital area, using aseptic technique. ke1 23:21 Inserted saline lock: 20 gauge in right hand, using aseptic technique. ke1 23:43 US Pelvis Complete In Process Unspecified. EDMS 06 00:44 CT Abd/Pelvis - IV Contrast Only In Process Unspecified. EDMS 01:54 No provider procedures requiring assistance completed. IV discontinued. ke1 Administered Medications: 00:44 Drug: Cipro (ciprofloxacin) 400 mg Volume: 200 ml; Route: IVPB; Infused Over: 60 mins; ke1 Site: right hand; 01:45 Follow up: Response: Marked relief of symptoms ke1 01:45 Follow up: IV Status: Completed infusion ke1 00:44 Drug: Ketorolac 30 mg Route: IVP; Site: right hand; ke1 01:15 Follow up: Response: Marked relief of symptoms ke1 Medication: 02:03 VIS not applicable for this client. ke1 Outcome: 01:50 Discharge ordered by . rn 02:02 Discharged to home ambulatory. ke1 02:02 Condition: good 02:02 Discharge instructions given to patient. 02:04 Patient left the ED. ke1 Signatures: Dispatcher [employer] EDNY Manolo Dumas MD MD rn Bryson, James, RN RN jb4 Elizabeth Paz Kouassi, RN RN ke1 Corrections: (The following items were deleted from the chart) 00:49 00:45 Pain: Denies pain. ke1 ke1 00:49 00:45 GI: Bowel sounds diminished in right lower quadrant Abd is soft and non tender ke1ke1
[2021-08-16 02:11] VITALS: BP 153/103; TEMP 97.7; O2SAT 99
--- NOTE | 2021-08-16 20:34 | RAD REPORT ---
EXAM DESCRIPTION: US - Pelvis Complete - 08/16/2021 4:48 am CLINICAL HISTORY: The patient is 20 years old and is Female; left pelvic pain TECHNIQUE: Real-time complete transabdominal pelvic ultrasound with image documentation. COMPARISON: No relevant prior studies available. FINDINGS: UTERUS/CERVIX: The uterus measures 4.7 x 3.4 x 6.0 cm. The endometrium measures 0.6 cm. No myometrial mass. RIGHT OVARY: The right ovary is not visualized secondary to bowel gas. LEFT OVARY: The left ovary measures 3.8 x 1.7 x 2.0 cm. A dominant left lingular ovarian cyst is present. No follow-up imaging is recommended. Normal arterial and venous color Doppler and spectral w aveform is present. Normal blood flow. FREE FLUID: No free fluid. BLADDER: Unremarkable as visualized. Wall is normal thickness for degree of distention. IMPRESSION: Unremarkable pelvic ultrasound. Electronically signed by: Ava Green MD 08/16/2021 3:54 AM CDT Due to temporary technical issues with the PACS/Fluency reporting system, reports are being signed by the in house radiologist without review as a courtesy to ensure prompt reporting. The interpreting r adiologist is fully responsible for the content of the report.
--- NOTE | 2021-08-16 20:38 | RAD REPORT ---
EXAM DESCRIPTION: CT - Abdomen Pelvis W Contrast - 08/16/2021 6:32 amD CLINICAL HISTORY: The patient is 20 years old and is Female; Abdominal pain, acute, nonlocalized TECHNIQUE: Axial computed tomography images of the abdomen and pelvis with intravenous contrast. S agittal and coronal reformatted images were created and reviewed. This CT exam was performed using one or more of the following dose reduction techniques: automated exposure control, adjustment of t he mA and/or kV according to patient size, and/or use of iterative reconstruction technique. COMPARISON: June 20, 2021. FINDINGS: Lung bases: Unremarkable. No mass. No consolidation. ABDOMEN: Liver: Unremarkable. No mass. Gallbladder and bile ducts: Unremarkable. No calcified stones. No ductal dilation. Pancreas: Unremarkable. No mass. No ductal dilation. Spleen: Unremarkable. No splenomegaly. Adrenals: Unremarkable. No mass. Kidneys and ureters: Striated enhancement of the left kidney which can be seen with pyelonephriti s. No hydronephrosis. Stomach and bowel: Unremarkable. No obstruction. No mucosal thickening. PELVIS: Appendix: The appendix is normal. Bladder: Diffuse bladder wall thickening suggestive of cystitis. Reproductive: Unremarkable as visualized. ABDOMEN and PELVIS: Intraperitoneal space: Unremarkable. No free air. No significant fluid collection. Bones/joints: No acute fracture. No dislocation. Soft tissues: Unremarkable. Vasculature: Unremarkable. No abdominal aortic aneurysm. Lymph nodes: Unremarkable. No enlarged lymph nodes. IMPRESSION: 1. Striated enhancement of the left kidney which can be seen with pyelonephritis. 2. Diffuse bladder wall thickening suggestive of cystitis. Electronically signed by: Arnel Flowers MD 08/16/2021 1:13 AM CDT Due to temporary technical issues with the PACS/Fluency reporting system, reports are being signed by the in house radiologist without review as a courtesy to ensure prompt reporting. The interpreting r adiologist is fully responsible for the content of the report.
== END 2021-08-16 02:04 | disposition home or self-care (01) ==
LOC: ER 22:35
DX: N39.0 Urinary tract infection, site not specified (principal); N10 Acute pyelonephritis; N83.292 Other ovarian cyst, left side; E11.9 Type 2 diabetes mellitus without complications; Z79.4 Long term (current) use of insulin
CPT/HCPCS: 36415; 74177; 76856; 80053; 81003; 83690; 85025; 96365; 96375; 99283; J0744; Q9967

== ENCOUNTER 2021-12-21 09:27 | Emergency (ER) | payer SELFPAY ==
--- OUTSIDE RECORDS SUMMARY | 2021-12-21 09:30 | XMS REPORT | Continuity of Care Document ---
:2000 Author Organization [facility] t Address Critical access hospital[address] [place] [address] Boothe [address] [place] [id number] Care Team Providers Name Role Phone Carlos Gordon [facility], [facility] Primary Care P hysician CARLOS A DE LA CRUZ Attending Clinician Unavailable Provider, Julia Temp Attending Clinician Unavailable Carlos A Ambriz Attending Clinician Akineliseo WHCNPGabriela Attending Clinician [phone] LIBBY BAKER Attending Clinician Unavailable Faculty, Evangelista Strong Mfm Attending Clinician Unavailable Libby Baker MD Attending Clinician Tom Maddox MD Attending Clinician TOM MADDOX Attending Clinician Unavailable Doctor Unassigned, [place] Attending Clinician Unavailable Nadine ABBOTT, Leisa Stein Attending Clinician Unavailable BETSY STONER Attending Clinician Unavailable Betsy Stoner DO Attending Clinician Payers Payer Name Policy Type Policy Number Effective Date Expiration Date S ource Problems Condition Condition Condition Status Onset Resolution Last Treating Co mments Source Name Details Category Date Date Treatment Clinician Date 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 00:00: [place] mellitus, mellitus, 00 Medi lynda uncontroll uncontroll Br anch ed ed Allergies, Adverse Reactions, Alerts Allergy Allergy Status Severity Reaction(s) Onset Inactive Treating Comm ents Source Name Type Date Date Clinician NO KNOWN Drug Active Univers ALLERGIE Class ity of S [facility] Social History Social Habit Start Date Stop Date Quantity Comments Source ASSERTION 2021-10-01 [facility] 00:00:00 [facility] Exposure to 2021-12-07 2021-12-17 Not sure [facility] SARS-CoV-2 00:00:00 10:20:00 [facility] (event) [place] Alcohol intake 2021-12-06 2021-12-06 Ex-drinker [facility] 00:00:00 00:00:00 (finding) [facility] Tobacco use and 2021-11-19 2021-11-19 Smokeless tobacco Un iversity of exposure 00:00:00 00:00:00 non-user [facility] Sex Assigned At [birth year] Universit y of 00:00:00 00:00:00 [facility] Smoking Status Start Date Stop Date Source Never smoked tobacco [facility] Medications Ordered Filled Start Stop Current Ordering Indication Dosage Frequency Signature Comments Components Source Medication Medication Date Date Medication? Clinician (SIG) Name Name amoxicillin 2021-02- Yes [id number] 500mg Take 1 Univers -pot 0-21 11-01 tablet by ity of clavulanate 00:00: 04:59 mouth in [place] 500 mg 00 :00 the Medical (AUGMENTIN) morning Branc h 500-125 mg and 1 tablet tablet in the evening. Do all this for 10 days. amoxicillin 2021-02- Yes [id number] 500mg Take 1 Univers -pot 0-21 11-01 tablet by ity of clavulanate 00:00: 04:59 mouth in [place] 500 mg 00 :00 the Medical (AUGMENTIN) morning Branc h 500-125 mg and 1 tablet tablet in the evening. Do all this for 10 days. amoxicillin 2021-02 Yes [id number] 500mg Take 1 Univers -pot 0-21 11- tablet by ity of clavulanate 00:00: 04:59 mouth in [place] 500 mg 00 :00 the Medical (AUGMENTIN) morning Branc h 500-125 mg and 1 tablet tablet in the evening. Do all this for 10 days. insulin 2021-02 Yes [id number] 100{eac 100 Each 3 Univers syr/ndl 0-10 h} (three) ity of U100 half 00:00: times [place] brian 0.5 mL 00 daily. Medica l 31 gauge x Please Branch 07/12" Syrg dispense box of insulin syringes that patient's insurance will cover insulin 2021-02 Yes [id number] 100{eac 100 Each 3 Univers syr/ndl 0-10 h} (three) ity of U100 half 00:00: times [place] brian 0.5 mL 00 daily. Medica l 31 gauge x Please Branch 07/12" Syrg dispense box of insulin syringes that patient's insurance will cover insulin 2021-02 Yes [id number] 100{eac 100 Each 3 Univers syr/ndl 0-10 h} (three) ity of U100 half 00:00: times [place] brian 0.5 mL 00 daily. Medica l 31 gauge x Please Branch 07/12" Syrg dispense box of insulin syringes that patient's insurance will cover insulin 2021-02 Yes [id number] 100{eac 100 Each 3 Univers syr/ndl 0-10 h} (three) ity of U100 half 00:00: times [place] brian 0.5 mL 00 daily. Medica l 31 gauge x Please Branch 07/12" Syrg dispense box of insulin syringes that patient's insurance will cover insulin 2021-02 Yes [id number] 100{eac 100 Each 3 Univers syr/ndl 0-10 h} (three) ity of U100 half 00:00: times [place] brian 0.5 mL 00 daily. Medica l 31 gauge x Please Branch 16" Syrg dispense box of insulin syringes that patient's insurance will cover insulin 2021-02 Yes [id number] 100{eac 100 Each 3 Univers syr/ndl 0-10 h} (three) ity of U100 half 00:00: times [place] brian 0.5 mL 00 daily. Medica l 31 gauge x Please Branch 07/12" Syrg dispense box of insulin syringes that patient's insurance will cover insulin 2021-02 Yes [id number] 100{eac 100 Each 3 Univers syr/ndl 0-10 h} (three) ity of U100 half 00:00: times [place] brian 0.5 mL 00 daily. Medica l 31 gauge x Please Branch 07/12" Syrg dispense box of insulin syringes that patient's insurance will cover insulin 2021-02 Yes [id number] 100{eac 100 Each 3 Univers syr/ndl 0-10 h} (three) ity of U100 half 00:00: times [place] brian 0.5 mL 00 daily. Medica l 31 gauge x Please Branch 07/12" Syrg dispense box of insulin syringes that patient's insurance will cover insulin 2021-02 Yes [id number] 100{eac 100 Each 3 Univers syr/ndl 0-10 h} (three) ity of U100 half 00:00: times [place] brian 0.5 mL 00 daily. Medica l 31 gauge x Please Branch 07/12" Syrg dispense box of insulin syringes that patient's insurance will cover insulin NPH 2021-02- Yes [id number] inject 12 Univers (HUMULIN N 0-10 07-08 Units ity of NPH U-100 00:00: 04:59 under the [place] INSULIN) 00 :00 skin daily Medic al 100 unit/mL with Branch injection breakfast AND 12 Units every evening. Do all this for 270 days. insulin 2021-02- Yes [id number] inject 6 U nivers regular 0-10 07-08 Units ity of human 100 00:00: 04:59 under the [place] unit/mL 00 :00 skin daily Medica l injection with Branch breakfast AND 7 Units with evening meal. Do all this for 270 days. doxylamine 2021-02- Yes [id number] 12.5mg Take 0.5 Univers 25 mg 0-12 03-08 tablets by ity of tablet 00:00: 04:59 mouth at [place] 00 :00 bedtime Medical for 270 Branch days. pyridoxine, 2021-02- Yes [id number] 25mg Take 0.5 Univers vitamin B6, 0-10 07-08 tablets by i ty of 50 mg 00:00: 04:59 mouth in [place] tablet 00 :00 the [facility] morning Branch for 270 days. insulin NPH 2021-02- Yes [id number] inject 12 Univers (HUMULIN N 0-10 07-08 Units ity of NPH U-100 00:00: 04:59 under the [place] INSULIN) 00 :00 skin daily Medic al 100 unit/mL with Branch injection breakfast AND 12 Units every evening. Do all this for 270 days. insulin 2021-02- Yes [id number] inject 6 U nivers regular 0-10 07-08 Units ity of human 100 00:00: 04:59 under the [place] unit/mL 00 :00 skin daily Medica l injection with Branch breakfast AND 7 Units with evening meal. Do all this for 270 days. doxylamine 2021-02- Yes [id number] 12.5mg Take 0.5 Univers 25 mg 0-10 07-08 tablets by ity of tablet 00:00: 04:59 mouth at [place] 00 :00 bedtime Medical for 270 Branch days. pyridoxine, 2021-02- Yes [id number] 25mg Take 0.5 Univers vitamin B6, 0-10 07-08 tablets by i ty of 50 mg 00:00: 04:59 mouth in [place] tablet 00 :00 the [facility] for 270 days. insulin NPH 2021-02- Yes [id number] inject 12 Univers (HUMULIN N 0-10 07-08 Units ity of NPH U-100 00:00: 04:59 under the [place] INSULIN) 00 :00 skin daily Medic al 100 unit/mL with Branch injection breakfast AND 12 Units every evening. Do all this for 270 days. insulin 2021-02- Yes [id number] inject 6 U nivers regular 0-10 07-08 Units ity of human 100 00:00: 04:59 under the [place] unit/mL 00 :00 skin daily Medica l injection with Branch breakfast AND 7 Units with evening meal. Do all this for 270 days. doxylamine 2021-02- Yes [id number] 12.5mg Take 0.5 Univers 25 mg 0-10 07-08 tablets by ity of tablet 00:00: 04:59 mouth at [place] 00 :00 bedtime Medical for 270 Branch days. pyridoxine, 2021-02- Yes [id number] 25mg Take 0.5 Univers vitamin B6, 0-10 07-08 tablets by i ty of 50 mg 00:00: 04:59 mouth in [place] tablet 00 :00 the [facility] for 270 days. insulin NPH 2021-02- Yes [id number] inject 12 Univers (HUMULIN N 0-10 07-08 Units ity of NPH U-100 00:00: 04:59 under the [place] INSULIN) 00 :00 skin daily Medic al 100 unit/mL with Branch injection breakfast AND 12 Units every evening. Do all this for 270 days. insulin 2021-02- Yes [id number] inject 6 U nivers regular 0-10 07-08 Units ity of human 100 00:00: 04:59 under the [place] unit/mL 00 :00 skin daily Medica l injection with Branch breakfast AND 7 Units with evening meal. Do all this for 270 days. doxylamine 2021-02- Yes [id number] 12.5mg Take 0.5 Univers 25 mg 0-10 07-08 tablets by ity of tablet 00:00: 04:59 mouth at [place] 00 :00 bedtime Medical for 270 Branch days. pyridoxine, 2021-02- Yes [id number] 25mg Take 0.5 Univers vitamin B6, 0-10 07-08 tablets by i ty of 50 mg 00:00: 04:59 mouth in [place] tablet 00 :00 the [facility] for 270 days. insulin NPH 2021-02- Yes [id number] inject 12 Univers (HUMULIN N 0-10 07-08 Units ity of NPH U-100 00:00: 04:59 under the [place] INSULIN) 00 :00 skin daily Medic al 100 unit/mL with Branch injection breakfast AND 12 Units every evening. Do all this for 270 days. insulin 2021-02- Yes [id number] inject 6 U nivers regular 0-10 07-08 Units ity of human 100 00:00: 04:59 under the [place] unit/mL 00 :00 skin daily Medica l injection with Branch breakfast AND 7 Units with evening meal. Do all this for 270 days. doxylamine 2021-02- Yes [id number] 12.5mg Take 0.5 Univers 25 mg 0-10 07-08 tablets by ity of tablet 00:00: 04:59 mouth at [place] 00 :00 bedtime Medical for 270 Branch days. pyridoxine, 2021-02- Yes [id number] 25mg Take 0.5 Univers vitamin B6, 0-10 07-08 tablets by i ty of 50 mg 00:00: 04:59 mouth in [place] tablet 00 :00 the Medical morning Branch for 270 days. insulin NPH 2021-02- Yes [id number] inject 12 Univers (HUMULIN N 0-10 07-08 Units ity of NPH U-100 00:00: 04:59 under the [place] INSULIN) 00 :00 skin daily Medic al 100 unit/mL with Branch injection breakfast AND 12 Units every evening. Do all this for 270 days. insulin 2021-02- Yes [id number] inject 6 U nivers regular 0-10 07-08 Units ity of human 100 00:00: 04:59 under the [place] unit/mL 00 :00 skin daily Medica l injection with Branch breakfast AND 7 Units with evening meal. Do all this for 270 days. doxylamine 2021-02- Yes [id number] 12.5mg Take 0.5 Univers 25 mg 0- 07-08 tablets by ity of tablet 00:00: 04:59 mouth at [place] 00 :00 bedtime Medical for 270 Branch days. pyridoxine, 2021-02- Yes [id number] 25mg Take 0.5 Univers vitamin B6, 0-10 07-08 tablets by i ty of 50 mg 00:00: 04:59 mouth in [place] tablet 00 :00 the [facility] Branch for 270 days. insulin NPH 2021-02- Yes [id number] inject 12 Univers (HUMULIN N 0-10 07-08 Units ity of NPH U-100 00:00: 04:59 under the [place] INSULIN) 00 :00 skin daily Medic al 100 unit/mL with Branch injection breakfast AND 12 Units every evening. Do all this for 270 days. insulin 2021-02- Yes [id number] inject 6 U nivers regular 0-10 07-08 Units ity of human 100 00:00: 04:59 under the [place] unit/mL 00 :00 skin daily Medica l injection with Branch breakfast AND 7 Units with evening meal. Do all this for 270 days. doxylamine 2021-02- Yes [id number] 12.5mg Take 0.5 Univers 25 mg 0-10 07-08 tablets by ity of tablet 00:00: 04:59 mouth at [place] 00 :00 bedtime Medical for 270 Branch days. pyridoxine, 2021-02- Yes [id number] 25mg Take 0.5 Univers vitamin B6, 0-10 07-08 tablets by i ty of 50 mg 00:00: 04:59 mouth in [place] tablet 00 :00 the [facility] for 270 days. insulin NPH 2021-02- Yes [id number] inject 12 Univers (HUMULIN N 0-10 07-08 Units ity of NPH U-100 00:00: 04:59 under the [place] INSULIN) 00 :00 skin daily Medic al 100 unit/mL with Branch injection breakfast AND 12 Units every evening. Do all this for 270 days. insulin 2021-02- Yes [id number] inject 6 U nivers regular 0-10 07-08 Units ity of human 100 00:00: 04:59 under the [place] unit/mL 00 :00 skin daily Medica l injection with Branch breakfast AND 7 Units with evening meal. Do all this for 270 days. doxylamine 2021-02- Yes [id number] 12.5mg Take 0.5 Univers 25 mg 0-10 07-08 tablets by ity of tablet 00:00: 04:59 mouth at [place] 00 :00 bedtime Medical for 270 Branch days. pyridoxine, 2021-02- Yes [id number] 25mg Take 0.5 Univers vitamin B6, 0-10 07-08 tablets by i ty of 50 mg 00:00: 04:59 mouth in [place] tablet 00 :00 the [facility] for 270 days. insulin NPH 2021-02- Yes [id number] inject 12 Univers (HUMULIN N 0-10 07-08 Units ity of NPH U-100 00:00: 04:59 under the [place] INSULIN) 00 :00 skin daily Medic al 100 unit/mL with Branch injection breakfast AND 12 Units every evening. Do all this for 270 days. insulin 2021-02- Yes [id number] inject 6 U nivers regular 0-10 07-08 Units ity of human 100 00:00: 04:59 under the [place] unit/mL 00 :00 skin daily Medica l injection with Branch breakfast AND 7 Units with evening meal. Do all this for 270 days. doxylamine 2021-02- Yes [id number] 12.5mg Take 0.5 Univers 25 mg 0-08 tablets by ity of tablet 00:00: 04:59 mouth at [place] 00 :00 bedtime Medical for 270 Branch days. pyridoxine, 2021-02- Yes [id number] 25mg Take 0.5 Univers vitamin B6, 0-08 tablets by i ty of 50 mg 00:00: 04:59 mouth in [place] tablet 00 :00 the Medical morning Branch for 270 days. Nitrofurant 2021- Yes [id number] 100mg Take 1 Univers oin&Nit. 11-22 capsule by ity of Macrocryst 00:00: 04:59 mouth in [place] (MACROBID) 00 :00 the Medical 100 mg morning Branch capsule and 1 capsule in the evening. Do all this for 10 days. Nitrofurant 2021- Yes [id number] 100mg Take 1 Univers oin&Nit. 11-22 capsule by ity of Macrocryst 00:00: 04:59 mouth in [place] (MACROBID) 00 :00 the Medical 100 mg morning Branch capsule and 1 capsule in the evening. Do all this for 10 days. ibuprofen 2021- No 600mg 600 mg, Uni vers (IBU) 03-07- Oral, ity of tablet 600 13:45: 12:39 ONCE, 1 [place] mg 00 :00 dose, On Medical 03/07/21 Branch at 0745, DELFIN Lancets 2018-02 Yes [id number] Use as Uni vers (RELION 03-21 directed ity of ULTRA THIN 00:00: [place] PLUS 00 Medical LANCETS) Branch Misc insulin NPH 2018-02 Yes [id number] 10U inject 10 Univers and regular 1-23 Units ity of human 70-30 00:00: under the [place] 100 unit/mL 00 skin every Me dical (70-30) 12 Branch injection (twelve) hours. Blood-Gluco 2018-02 Yes [id number] Use as Univers se Meter - directed ity of (RELION 00:00: [place] MICRO 00 Medical GLUCOSE Branch MONITOR) Kit Lancets 2018-02 Yes [id number] Use as Uni vers (RELION -23 directed ity of ULTRA THIN 00:00: [place] PLUS 00 Medical LANCETS) Branch Misc Insulin 2018-02 Yes [id number] Use as Uni vers Syringe-Nee 03-21 directed ity of dle U-100 00:00: [place] (BD INSULIN 00 Medical SYRINGE) Branch 0.5 mL 29 gauge x 1/2" Syrg Insulin 2018-02 Yes [id number] Use as Uni vers Syringe-Nee 03-21 directed ity of dle U-100 00:00: [place] (BD INSULIN 00 Medical SYRINGE) Branch 0.5 mL 29 gauge x 1/2" Syrg insulin NPH 2018-02 Yes [id number] 10U inject 10 Univers and regular 1-23 Units ity of human 70-30 00:00: under the [place] 100 unit/mL 00 skin every Me dical (70-30) 12 Branch injection (twelve) hours. Blood-Gluco 2018-02 Yes [id number] Use as Univers se Meter - directed ity of (RELION 00:00: [place] MICRO 00 Medical GLUCOSE Branch MONITOR) Kit Lancets 2018-02 Yes [id number] Use as Uni vers (RELION 03-21 directed ity of ULTRA THIN 00:00: [place] PLUS 00 Medical LANCETS) Branch Misc Insulin 2018-02 Yes [id number] Use as Uni vers Syringe-Nee 03-21 directed ity of dle U-100 00:00: [place] (BD INSULIN 00 Medical SYRINGE) Branch 0.5 mL 29 gauge x 1/2" Syrg insulin NPH 2018-02 Yes [id number] 10U inject 10 Univers and regular 1-23 Units ity of human 70-30 00:00: under the [place] 100 unit/mL 00 skin every Me dical (70-30) 12 Branch injection (twelve) hours. Blood-Gluco 2018-02 Yes [id number] Use as Univers se Meter -23 directed ity of (RELION 00:00: [place] MICRO 00 Medical GLUCOSE Branch MONITOR) Kit Lancets 2018-02 Yes [id number] Use as Uni vers (RELION -23 directed ity of ULTRA THIN 00:00: [place] PLUS 00 Medical LANCETS) Branch Misc Insulin 2018-02 Yes [id number] Use as Uni vers Syringe-Nee 1-23 directed ity of dle U-100 00:00: [place] (BD INSULIN 00 Medical SYRINGE) Branch 0.5 mL 29 gauge x 1/2" Syrg insulin NPH 2018-02 Yes [id number] 10U inject 10 Univers and regular 1-23 Units ity of human 70-30 00:00: under the [place] 100 unit/mL 00 skin every Me dical (70-30) 12 Branch injection (twelve) hours. Blood-Gluco 2018-02 Yes [id number] Use as Univers se Meter 1-23 directed ity of (RELION 00:00: [place] MICRO 00 Medical GLUCOSE Branch MONITOR) Kit Lancets 2018-02 Yes [id number] Use as Uni vers (RELION 1-23 directed ity of ULTRA THIN 00:00: [place] PLUS 00 Medical LANCETS) Branch [facility] Insulin 2018-02 Yes [id number] Use as Uni vers Syringe-Nee 03-21 directed ity of dle U-100 00:00: [place] (BD INSULIN 00 Medical SYRINGE) Branch 0.5 mL 29 gauge x 1/2" Syrg insulin NPH 2018-02 Yes [id number] 10U inject 10 Univers and regular 1-23 Units ity of human 70-30 00:00: under the [place] 100 unit/mL 00 skin every Me dical (70-30) 12 Branch injection (twelve) hours. Blood-Gluco 2018-02 Yes [id number] Use as Univers se Meter 1-23 directed ity of (RELION 00:00: [place] MICRO 00 Medical GLUCOSE Branch MONITOR) Kit Lancets 2018-02 Yes [id number] Use as Uni vers (RELION 1-23 directed ity of ULTRA THIN 00:00: [place] PLUS 00 Medical LANCETS) Branch [facility] Insulin 2018-02 Yes [id number] Use as Uni vers Syringe-Nee -23 directed ity of dle U-100 00:00: [place] (BD INSULIN 00 Medical SYRINGE) Branch 0.5 mL 29 gauge x 1/2" Syrg insulin NPH 2018-02 Yes [id number] 10U inject 10 Univers and regular 1-23 Units ity of human 70-30 00:00: under the [place] 100 unit/mL 00 skin every Me dical (70-30) 12 Branch injection (twelve) hours. Blood-Gluco 2018-02 Yes [id number] Use as Univers se Meter 1-23 directed ity of (RELION 00:00: [place] MICRO 00 Medical GLUCOSE Branch MONITOR) Kit Lancets 2018-02 Yes [id number] Use as Uni vers (RELION 1-23 directed ity of ULTRA THIN 00:00: [place] PLUS 00 Medical LANCETS) Branch Misc Insulin 2018-02 Yes [id number] Use as Uni vers Syringe-Nee -23 directed ity of dle U-100 00:00: [place] (BD INSULIN 00 Medical SYRINGE) Branch 0.5 mL 29 gauge x 1/2" Syrg insulin NPH 2018-02 Yes [id number] 10U inject 10 Univers and regular 1-23 Units ity of human 70-30 00:00: under the [place] 100 unit/mL 00 skin every Me dical (70-30) 12 Branch injection (twelve) hours. Blood-Gluco 2018-02 Yes [id number] Use as Univers se Meter 1-23 directed ity of (RELION 00:00: [place] MICRO 00 Medical GLUCOSE Branch MONITOR) Kit Lancets 2018-02 Yes [id number] Use as Uni vers (RELION 1-23 directed ity of ULTRA THIN 00:00: [place] PLUS 00 Medical LANCETS) Branch Misc Insulin 2018-02 Yes [id number] Use as Uni vers Syringe-Nee 03-21 directed ity of dle U-100 00:00: [place] (BD INSULIN 00 Medical SYRINGE) Branch 0.5 mL 29 gauge x 1/2" Syrg insulin NPH 2018-02 Yes [id number] 10U inject 10 Univers and regular 1-23 Units ity of human 70-30 00:00: under the [place] 100 unit/mL 00 skin every Me dical (70-30) 12 Branch injection (twelve) hours. Blood-Gluco 2018-02 Yes [id number] Use as Univers se Meter 1-23 directed ity of (RELION 00:00: [place] MICRO 00 Medical GLUCOSE Branch MONITOR) Kit Lancets 2018-02 Yes [id number] Use as Uni vers (RELION 1-23 directed ity of ULTRA THIN 00:00: [place] PLUS 00 Medical LANCETS) Branch Misc Insulin 2018-02 Yes [id number] Use as Uni vers Syringe-Nee -23 directed ity of dle U-100 00:00: [place] (BD INSULIN 00 Medical SYRINGE) Branch 0.5 mL 29 gauge x 1/2" Syrg insulin NPH 2018-02 Yes [id number] 10U inject 10 Univers and regular 1-23 Units ity of human 70-30 00:00: under the [place] 100 unit/mL 00 skin every Me dical (70-30) 12 Branch injection (twelve) hours. Blood-Gluco 2018-02 Yes [id number] Use as Univers se Meter 1-23 directed ity of (RELION 00:00: [place] MICRO 00 Medical GLUCOSE Branch MONITOR) Kit Lancets 2018-02 Yes [id number] Use as Uni vers (RELION 1-23 directed ity of ULTRA THIN 00:00: [place] PLUS 00 Medical LANCETS) Branch Misc Insulin 2018-02 Yes [id number] Use as Uni vers Syringe-Nee 03-21 directed ity of dle U-100 00:00: [place] (BD INSULIN 00 Medical SYRINGE) Branch 0.5 mL 29 gauge x 1/2" Syrg insulin NPH 2018-02 Yes [id number] 10U inject 10 Univers and regular 1-23 Units ity of human 70-30 00:00: under the [place] 100 unit/mL 00 skin every Me dical (70-30) 12 Branch injection (twelve) hours. Blood-Gluco 2018-02 Yes [id number] Use as Univers se Meter 1- directed ity of (RELION 00:00: [place] MICRO 00 Medical GLUCOSE Branch MONITOR) Kit Lancets 2018-02 Yes [id number] Use as Uni vers (RELION 1-23 directed ity of ULTRA THIN 00:00: [place] PLUS 00 Medical LANCETS) Branch Misc Insulin 2018-02 Yes [id number] Use as Uni vers Syringe-Nee -23 directed ity of dle U-100 00:00: [place] (BD INSULIN 00 Medical SYRINGE) Branch 0.5 mL 29 gauge x 1/2" Syrg insulin NPH 2018-02 Yes [id number] 10U inject 10 Univers and regular 1-23 Units ity of human 70-30 00:00: under the [place] 100 unit/mL 00 skin every Me dical (70-30) 12 Branch injection (twelve) hours. Blood-Gluco 2018-02 Yes [id number] Use as Univers se Meter 1-23 directed ity of (RELION 00:00: [place] MICRO 00 Medical GLUCOSE Branch MONITOR) Kit Lancets 2018-02 Yes [id number] Use as Uni vers (RELION -23 directed ity of ULTRA THIN 00:00: [place] PLUS 00 Medical LANCETS) [facility] Yes [id number] Use as Uni vers Syringe-Nee 03-21 directed ity of dle U-100 00:00: [place] (BD INSULIN 00 Medical SYRINGE) Branch 0.5 mL 29 gauge x 1/2" Syrg insulin NPH 2018-02 Yes [id number] 10U inject 10 Univers and regular 1-23 Units ity of human 70-30 00:00: under the [place] 100 unit/mL 00 skin every Me dical (70-30) 12 Branch injection (twelve) hours. insulin NPH 2018-02 Yes [id number] 10U inject 10 Univers and regular 1-23 Units ity of human 70-30 00:00: under the [place] 100 unit/mL 00 skin every Me dical (70-30) 12 Branch injection (twelve) hours. Blood-Gluco 2018-02 Yes [id number] Use as Univers se Meter 03-21 directed ity of (RELION 00:00: [place] MICRO 00 Medical GLUCOSE Branch MONITOR) Kit Lancets 2018-02 Yes [id number] Use as Uni vers (RELION 03-21 directed ity of ULTRA THIN 00:00: [place] PLUS 00 Medical LANCETS) Branch [facility] Insulin 2018-02 Yes [id number] Use as Uni vers Syringe-Nee 03-21 directed ity of dle U-100 00:00: [place] (BD INSULIN 00 Medical SYRINGE) Branch 0.5 mL 29 gauge x 1/2" Syrg Blood-Gluco 2018-02 Yes [id number] Use as Univers se Meter 03-21 directed ity of (RELION 00:00: [place] MICRO 00 Medical GLUCOSE Branch MONITOR) Kit Lancets 2018-02 Yes [id number] Use as Uni vers (RELION 03-21 directed ity of ULTRA THIN 00:00: [place] PLUS 00 Medical LANCETS) Branch [facility]-02 Yes [id number] Use as Uni vers Syringe-Nee 03-21 directed ity of dle U-100 00:00: [place] (BD INSULIN 00 Medical SYRINGE) Branch 0.5 mL 29 gauge x 1/2" Syrg insulin NPH 2018-02 Yes [id number] 10U inject 10 Univers and regular 1-23 Units ity of human 70-30 00:00: under the [place] 100 unit/mL 00 skin every Me dical (70-30) 12 Branch injection (twelve) hours. Blood-Gluco 2018-02 Yes [id number] Use as Univers se Meter 1-23 directed ity of (RELION 00:00: [place] MICRO 00 Medical GLUCOSE Branch MONITOR) Kit Lancets 2018-02 Yes [id number] Use as Uni vers (RELION 1-23 directed ity of ULTRA THIN 00:00: [place] PLUS 00 Medical LANCETS) Branch Misc Insulin 2018-02 Yes [id number] Use as Uni vers Syringe-Nee - directed ity of dle U-100 00:00: [place] (BD INSULIN 00 Medical SYRINGE) Branch 0.5 mL 29 gauge x 1/2" Syrg insulin NPH 2018-02 Yes [id number] 10U inject 10 Univers and regular 1-23 Units ity of human 70-30 00:00: [place] 100 unit/mL 00 skin every Me dical (70-30) 12 Branch injection (twelve) hours. Blood-Gluco 2018-02 Yes [id number] Use as Univers se Meter 1-23 directed ity of (RELION 00:00: [place] MICRO 00 Medical GLUCOSE Branch MONITOR) Kit Lancets 2018-02 Yes [id number] Use as Uni vers (RELION 1-23 directed ity of ULTRA THIN 00:00: [place] PLUS 00 Medical LANCETS) Branch Misc Insulin 2018-02 Yes [id number] Use as Uni vers Syringe-Nee 03-21 directed ity of dle U-100 00:00: [place] (BD INSULIN 00 Medical SYRINGE) Branch 0.5 mL 29 gauge x 1/2" Syrg insulin NPH 2018-02 Yes [id number] 10U inject 10 Univers and regular 1-23 Units ity of human 70-30 00:00: [place] 100 unit/mL 00 skin every Me dical (70-30) 12 Branch injection (twelve) hours. Blood-Gluco 2018-02 Yes [id number] Use as Univers se Meter 1-23 directed ity of (RELION 00:00: [place] MICRO 00 Medical GLUCOSE Branch MONITOR) Kit insulin NPH 2018-02 Yes [id number] 10U inject 10 Univers and regular 1-23 Units ity of human 70-30 00:00: [place] 100 unit/mL 00 skin every Me dical (70-30) 12 Branch injection (twelve) hours. Lancets 2018-02 Yes [id number] Use as Uni vers (RELION 1-23 directed ity of ULTRA THIN 00:00: [place] PLUS 00 Medical LANCETS) Branch [facility] Insulin 2018-02 Yes [id number] Use as Uni vers Syringe-Nee 03-21 directed ity of dle U-100 00:00: [place] (BD INSULIN 00 Medical SYRINGE) Branch 0.5 mL 29 gauge x 1/2" Syrg Blood-Gluco 2018-02 Yes [id number] Use as Univers se Meter 1- directed ity of (RELION 00:00: [place] MICRO 00 Medical GLUCOSE Branch MONITOR) Kit insulin NPH 2018-02 Yes [id number] 10U inject 10 Univers and regular 1-23 Units ity of human 70-30 00:00: [place] 100 unit/mL 00 skin every Me dical (70-30) 12 Branch injection (twelve) hours. Blood-Gluco 2018-02 Yes [id number] Use as Univers se Meter 1- directed ity of (RELION 00:00: [place] MICRO 00 Medical GLUCOSE Branch MONITOR) Kit Lancets 2018-02 Yes [id number] Use as Uni vers (RELION - directed ity of ULTRA THIN 00:00: [place] PLUS 00 Medical LANCETS) Branch [facility] Insulin 2018-02 Yes [id number] Use as Uni vers Syringe-Nee 03-21 directed ity of dle U-100 00:00: [place] (BD INSULIN 00 Medical SYRINGE) Branch 0.5 mL 29 gauge x 1/2" Syrg ibuprofen 2018-02 Yes [id number] 800mg Take 1 Univers 800 mg 1-21 tablet by ity of tablet 00:00: mouth [place] 00 every 8 Medical (eight) Branch hours as needed for Temp > 38.5 C (PAIN). ibuprofen 2018-02 Yes [id number] 800mg Take 1 Univers 800 mg 1-21 tablet by ity of tablet 00:00: mouth [place] 00 every 8 Medical (eight) Branch hours as needed for Temp > 38.5 C (PAIN). ibuprofen 2018-02 Yes [id number] 800mg Take 1 Univers 800 mg 1-21 tablet by ity of tablet 00:00: mouth [place] 00 every 8 Medical (eight) Branch hours as needed for Temp > 38.5 C (PAIN). ibuprofen 2018- Yes [id number] 800mg Take 1 Univers 800 mg 1-21 tablet by ity of tablet 00:00: mouth [place] 00 every 8 Medical (eight) Branch hours as needed for Temp > 38.5 C (PAIN). ibuprofen 2018-02- No [id number] 800mg Take 1 Univers 800 mg -21 11-19 tablet by ity of tablet 00:00: 00:00 mouth [place] 00 :00 every 8 Medical (eight) Branch hours as needed for Temp > 38.5 C (PAIN). ibuprofen 2018-02- No [id number] 800mg Take 1 Univers 800 mg -11-19 tablet by ity of tablet 00:00: 00:00 mouth [place] 00 :00 every 8 Medical (eight) Branch hours as needed for Temp > 38.5 C (PAIN). ibuprofen 2018-02- No [id number] 800mg Take 1 Univers 800 mg 03-19 tablet by ity of tablet 00:00: 00:00 mouth [place] 00 :00 every 8 Medical (eight) Branch hours as needed for Temp > 38.5 C (PAIN). Vital Signs Vital Name Observation Time Observation Value Comments Source Systolic blood 2021-12-17 15:21:00 115 mm[Hg] [facility] Diastolic blood 2021-12-17 15:21:00 67 mm[Hg] [facility] Are[facility] Heart rate 2021-12-17 15:21:00 80 /min [facility] Body temperature 2021-12-17 15:21:00 36.11 Cecilia [facility] Respiratory rate 2021-12-17 15:21:00 17 /min [facility] Body height 2021-12-17 15:21:00 152.4 cm [facility] Body weight 2021-12-17 15:21:00 62.551 kg [facility] BMI 2021-12-17 15:21:00 26.93 kg/m2 [facility] [place] [facility] Systolic blood 2021-12-06 14:35:00 117 mm[Hg] [facility]iver sity of pressure [place] [facility] Diastolic blood 2021-12-06 14:35:00 70 mm[Hg] Unive rsity of pressure [place] [facility] Heart rate 2021-12-06 14:35:00 75 /min [facility] [place] [facility] Body temperature 2021-12-06 14:35:00 36.22 Cecilia [facility] [place] [facility] Respiratory rate 2021-12-06 14:35:00 18 /min [facility] [place] [facility] Body height 2021-12-06 14:35:00 152.4 cm [facility] [place] [facility] Body weight 2021-12-06 14:35:00 63.674 kg [facility] [place] [facility] BMI 2021-12-06 14:35:00 27.42 kg/m2 [facility] [place] [facility] Systolic blood 2021-11-19 15:12:00 120 mm[Hg] Univer sity of pressure [place] [facility] Diastolic blood 2021-11-19 15:12:00 75 mm[Hg] Unive rsity of pressure [place] [facility] Heart rate 2021-11-19 15:12:00 73 /min [facility] [place] [facility] Body temperature 2021-11-19 15:12:00 36.39 Cecilia [facility] [place] [facility] Respiratory rate 2021-11-19 15:12:00 16 /min [facility] [place] [facility] Body height 2021-11-19 15:12:00 152.4 cm [facility] [place] [facility] Body weight 2021-11-19 15:12:00 63.56 kg [facility] [place] [facility] BMI 2021-11-19 15:12:00 27.37 kg/m2 [facility] [place] [facility] Systolic blood 2021-03-07 12:25:00 109 mm[Hg] Univer sity of pressure [place] [facility] Diastolic blood 2021-03-07 12:25:00 72 mm[Hg] Unive rsity of pressure [place] [facility] Heart rate 2021-03-07 12:25:00 122 /min [facility] [place] [facility] Body temperature 2021-03-07 12:25:00 38.22 Cecilia [facility] [place] [facility] Respiratory rate 2021-03-07 12:25:00 18 /min [facility] Body weight 2021-03-07 12:25:00 66.225 kg [facility] Oxygen saturation in 2021-03-07 12:25:00 98 /min [facility] Arterial blood by [facility] Pulse oximetry [place] Procedures Procedure Date / Time Performed Performing Clinician Sourc e POCT URINALYSIS 2021-12-17 00:00:00 Carlos A De La Cruz [facility] CREATININE U 24 HR 2021-12-06 15:03:00 Samuel Libby [facility] PROTEIN QUANT U/24H 2021-12-06 15:03:00 Libby Baker [facility] POCT URINALYSIS W/O 2021-11-19 15:06:00 Carlos A De La Cruz [facility] SPECIFIC GRAVITY [facility] POCT TEST 2021-11-19 15:05:00 Carlos A De La Cruz [facility] [place] [facility] ASSIGNMENT OF BENEFITS 2021-11-19 14:10:38 Doctor Unassigned, No [facility] POCT GLUCOSE 2021-03-07 12:29:00 Betsy Stoner [facility] (AUTOMATED) [facility] NOTICE OF PRIVACY 2021-03-07 12:18:40 Doctor Unassigned, No [facility] CONSENT/REFUSAL FOR 2021-03-07 12:18:18 [facility] TREATMENT Encounters Start End Encounter Admission Attending Care Care Encounter Source Date/Time Date/Time Type Type Clinicians Facility Department ID 2021-12-17 2021-12-17 Routine Provider, Evangelista-Rmchp Temp [facility] 1 .[id number] [id number] Univers 09:45:00 10:58:07 Carlos A De La Cruz [employer] 350.1.13.1 0 ity of Visit [facility] [id number] Hardeep as MATERNAL [id number] Med ical & CHILD [address] [place] [address] 2021-12-17 2021-12-17 Outpatient R DARCI DE LA CRUZ [facility] [id number] Univers 09:45:00 10:58:07 LISSETTENDA ity o f [facility] 2021-12-17 2021-12-17 Telephone [facility] [id number] [id number] Univers 00:00:00 00:00:00 Gabriela Casillas [employer] 350.1.13.10 ity of REGIONAL [id number] Hardeep as MATERNAL [phone] Med ical & CHILD [address] [place] [address] 2021-12-13 2021-12-13 Outpatient R SAMUEL [facility] [id number] Univers 08:30:00 15:47:00 LIBBY farfan [facility] 2021-12-13 2021-12-13 Telemedici Faculty, Evangelista Navarromichael [facility] 1.2.840.114 [id number] Univers 08:30:00 15:47:00 ne Visit Libby Baker [employer] 350.1.13.10 ity of REGIONAL [id number] Hardeep as MATERNAL [phone] Med ical & CHILD [address] [place] [address] 2021-12-06 2021-12-06 Office Faculty, Evangelista Navarromichael [facility] 1.2 .[id number] Univers 09:30:00 10:28:49 Visit Tom Maddox [employer] 350.1.13.10 ity of REGIONAL [id number] Hardeep as MATERNAL [id number] Med ical & CHILD [address] [place] [address] 2021-12-06 2021-12-06 [facility] [id number] Univers 09:30:00 10:28:49 TOM farfan [facility] 2021-11-22 2021-11-22 Telephone [facility] [id number] Univers 00:00:00 00:00:00 Carlos A Siddiqi [employer] 350.1.13.10 ity of REGIONAL [id number] Hardeep as MATERNAL [id number] Med ical & CHILD [address] [place] [address] 2021-11-19 2021-11-19 Outpatient [facility] [id number] Univers 09:15:00 11:05:56 CARLOS A farfan o marissa [facility] 2021-11-19 2021-11-19 Initial [facility] 1.2.840.114 [id number] Univers 09:15:00 11:05:56 Carlos A R [employer] 350.1.13.10 ity of Visit [facility] [id number] Hardeep as MATERNAL [id number] [facility] ical & CHILD [address] [place] [address] 2021-11-19 2021-11-19 Out[facility] [id number] Univers 08:45:00 08:45:00 KATHYRufino farfan o f [facility] 2021-11-19 2021-11-19 Orders Doctor DEMETRIUS 1.2.840.114 [id number] Univers 00:00:00 00:00:00 Only Unassigned, BUNNY 350.1.13.10 ity of Triana [facility] [id number] Hardeep as [id number] [facility] [address] [place] 2021-03-08 2021-03-08 Letter DEMETRIUS Mccoy 1.2.840.114 [id number] Univers 00:00:00 00:00:00 (Out) Leisa HOLLIS 350.1.13.10 it y of [facility] 42.7.2.686 Hardeep as [phone] [facility] [address] [place] 2021-03-07 2021-03-07 Emergency X [facility] ERT [id number] Univers 06:32:00 06:55:00 BETSY ity of [facility] 2021-03-07 2021-03-07 Emergency [facility] 1.2.840.114 [id number] Univers 06:32:00 06:55:00 Betsy SILVA 350.1.13.10 ity of [place] 42.7.2.686 [facility] [id number] [facility] [address] [place] 2021-03-07 2021-03-07 Orders Doctor ROMO 1.2.840.114 [id number] Univers 00:00:00 00:00:00 Only UnassignedBUNNY 350.1.13.10 ity of [place] [facility] [id number] Haredep as [id number] [facility] 009 Branch Results Test Description Test Time Test Comments Results Result Comments Source POCT URINALYSIS W SPECIFIC GRAVITY 2021-12-17 15:29:00 Test Item Value Reference Range Interpretation Comme nts POCT U SP GRAV (test code = 3255) . 1.005-1.025 POCT PH U (test code = 3254) 8 mg/dl 5-8 POCT U LEUK EST (test code = 3263) 2++ Negative - Negative POCT U NIT (test code = 3262) positive Negative - Negative POCT U PROT (test code = 3259) 1+ Negative - Negative POCT U GLU (test code = 3256) Negative - Negative POCT U KETONE (test code = 3258) negative Negative - Negative POCT U UROBILI (test code = 3260) . 0.2-1 POCT U BILI (test code = 3261) . Negative - Negative POCT U BLD (test code = 3257) negative Negative - Negative POCT U COLOR (test code = 3266) yellow POCT U APPEAR (test code = 3267) [facility] SPECIFIC [id number] 15:06:00 Test Item Value Reference Range Interpretation Comments POCT PH U (test code = 3254) 6 mg/dl 5-8 POCT U LEUK EST (test code = 2+ Negative - Negative 3263) POCT U NIT (test code = 3262) Pos Negative - Negative POCT U PROT (test code = 3259) Trace Negative - Negative POCT U GLU (test code = 3256) Negative - Negative POCT U KETONE (test code = 3258) None Negative - Negative POCT U BLD (test code = 3257) Trace Negative - Negative [facility]/O SPECIFIC [id number] 15:06:00 Test Item Value Reference Range Interpretation Comments POCT PH U (test code = 3254) 6 mg/dl 5-8 POCT U LEUK EST (test code = 2+ Negative - Negative 3263) POCT U NIT (test code = 3262) Pos Negative - Negative POCT U PROT (test code = 3259) Trace Negative - Negative POCT U GLU (test code = 3256) Negative - Negative POCT U KETONE (test code = 3258) None Negative - Negative POCT U BLD (test code = 3257) Trace Negative - Negative [facility] URINALYSIS W/O SPECIFIC [id number] 15:06:00 Test Item Value Reference Range Interpretation Comments POCT PH U (test code = 3254) 6 mg/dl 5-8 POCT U LEUK EST (test code = 2+ Negative - Negative 3263) POCT U NIT (test code = 3262) Pos Negative - Negative POCT U PROT (test code = 3259) Trace Negative - Negative POCT U GLU (test code = 3256) Negative - Negative POCT U KETONE (test code = 3258) None Negative - Negative POCT U BLD (test code = 3257) Trace Negative - Negative [facility] [id number] 15:05:00 Test Item Value Reference Range Interpretation Comments POCT PREG (test code = 1605) Positive On board controls acceptable with C Yes Line (test code = 3574) POCT PREG LOT # (test code = 3575) POCT PREG TEST DATE (test code = 3576) [facility] [id number] 15:05:00 Test Item Value Reference Range Interpretation Comments POCT PREG (test code = 1605) Positive On board controls acceptable with C Yes Line (test code = 3574) POCT PREG LOT # (test code = 3575) POCT PREG TEST DATE (test code = 3576) [facility] [id number] 15:05:00 Test Item Value Reference Range Interpretation Comments POCT PREG (test code = 1605) Positive On board controls acceptable with C Yes Line (test code = 3574) POCT PREG LOT # (test code = 3575) POCT PREG TEST DATE (test code = 3576) [facility] GLUCOSE (AUTOMATED)2021-03-07 12:31:46 Test Item Value Reference Range Interpretation Comments POCT GLU (test code = [id number]) 359 mg/dL 70-110 H Lab Interpretation (test code = Abnormal 81822-0) [facility]
[2021-12-21] MEDS ORDERED: NA CHLORIDE 0.9% 1,000 ML ONE ×2 (09:52→12:50)
[2021-12-21] MEDS ORDERED: PROMETHAZINE INJ 25 MG/ML AMP ONE (09:52)
[2021-12-21 10:10] LABS: Urine Blood Negative (Negative); Urine Glucose Negative (Negative); Urine Protein 2+ (Negative); Urine Specific Gravity >=1.030 (1.005-1.030); Urine pH 5.5 (5.0-7.0)
[2021-12-21 10:14] LABS: Absolute Lymphocytes (CBC) 1.7 K/uL (0.7-4.9); Hematocrit 40.5 % (36.0-45.0); Lymphocytes % 15.6 % (15.3-44.8); MCV 81.9 fL (80-100); MPV 7.9 fL (7.6-11.3); RBC Red Blood Cell Count 4.95 M/uL (3.86-4.86)
[2021-12-21 10:36] LABS: Albumin 3.3 g/dL (3.4-5.0); Bilirubin Total 0.6 mg/dL (0.2-1.0); Potassium 3.5 mmol/L (3.5-5.1); Protein, Total 7.8 g/dL (6.4-8.2)
[2021-12-21 12:30] LABS: SARS-CoV-2 Antigen Rapid Res Negative (Negative)
--- NOTE | 2021-12-21 14:23 | ER ---
Nurse's Notes [facility] Name: Rain Chaidez Age: 21 yrs Sex: Female : 2000 Arrival Date: 12/21/2021 Time: 09:30 Bed 14 Private MD: Diagnosis: Vomiting of , unspecified Presentation: 12/21 09:39 Chief complaint: Patient states: N/V for 3 days. G1, P0 Almost 12 weeks. LMP August 18. ll1 Coronavirus screen: Vaccine status: Patient reports receiving the 2nd dose of the covid vaccine. Client denies travel out of the [place] in the last 14 days. nausea, vomiting. Ebola Screen: Patient denies travel to an Ebola-affected area in the 21 days before illness onset. Initial Sepsis Screen: Does the patient meet any 2 criteria? No. Patient's initial sepsis screen is negative. Does the patient have a suspected source of infection? Yes: Acute abdominal pain. Risk Assessment: Do you want to hurt yourself or someone else? Patient reports no desire to harm self or others. Onset of symptoms was December 19, 2021. 09:39 Method Of Arrival: Ambulatory ll1 09:39 Acuity: CHERI 3 ll1 Triage Assessment: 09:40 General: Appears uncomfortable, Behavior is cooperative, appropriate for age. GI: ll1 Reports cramping, nausea, vomiting. [employer]IC: 13:18 1, 0, Living 0, LMP 09/17/2021 kb Historical: - Allergies: 09:39 No Known Allergies; ll1 - PMHx: 09:39 diabetes mellitus; ll1 - PSHx: 09:39 None; ll1 - Immunization history:: Client reports receiving the 2nd dose of the Covid vaccine. - Social history:: Smoking status: Patient denies any tobacco usage or history of. Screenin:45 Abuse screen: Denies threats or abuse. Denies injuries from another. Nutritional bp screening: No deficits noted. Tuberculosis screening: No symptoms or risk factors identified. Fall Risk None identified. Assessment: 09:45 General: SEE TRIAGE NOTE. bp 11:00 Reassessment: No changes from previously documented assessment. Patient and/or family bp updated on plan of care and expected duration. Pain level reassessed. Pain: Complains of pain in abdomen. GI: Abdomen is non-distended. 12:54 Reassessment: No changes from previously documented assessment. Patient is alert, bp oriented x 3, equal unlabored respirations, skin warm/dry/pink. 14:01 Reassessment: Patient and/or family updated on plan of care and expected duration. Pain bp level reassessed. Patient is alert, oriented x 3, equal unlabored respirations, skin warm/dry/pink. 14:39 Reassessment: PT DC HOME AMBULATORY. bp Vital Signs: 09:39 BP 121 / 85; Pulse 85; Resp 17; Temp 98.6; Pulse Ox 100% ; Weight 62.14 kg; Height 5 ll1 ft. 0 in. (152.40 cm); 11:00 BP 123 / 82; Pulse 73; Resp 15; Pulse Ox 100% ; bp 12:00 BP 116 / 73; Pulse 73; Resp 16; Pulse Ox 100% ; bp 14:00 BP 118 / 80; Pulse 72; Resp 16; Pulse Ox 100% ; bp 14:30 BP 130 / 84; Pulse 65; Resp 16; Pulse Ox 100% ; bp 09:39 Body Mass Index 26.76 (62.14 kg, 152.40 cm) ll1 Vitals: 14:00 Heart Tones 165. bp ED Course: 09:30 Patient arrived in ED. mr 09:31 Mariana Park, KUSHAL [facility] kb 09:31 Moises Carter MD is Attending Physician. kb 09:33 Magdaleno Berrios, SCAR is Primary Nurse. bp 09:39 Arm band placed on Patient placed in an exam room, on a stretcher. ll1 09:40 Triage completed. ll1 09:45 Patient has correct armband on for positive identification. Bed in low position. Call bp light in reach. Side rails up X2. 10:05 Inserted saline lock: 20 gauge in right forearm, using aseptic technique. Blood bp collected. 14:40 No provider procedures requiring assistance completed. IV discontinued, intact, bp bleeding controlled, No redness/swelling at site. Pressure dressing applied. Administered Medications: 10:05 Drug: NS 0.9% 1000 ml Route: IV; Rate: 1 bolus; Site: right forearm; bp 10:05 Drug: Phenergan (promethazine) 6.25 mg Route: IVP; Site: right forearm; bp 11:56 Follow up: Response: No adverse reaction bp 12:45 Drug: NS 0.9% 1000 ml Route: IV; Rate: 1000 ml; Site: right forearm; bp 14:40 Follow up: IV Status: Completed infusion bp Outcome: 14:23 Discharge ordered by . tera 14:40 Discharged to home ambulatory, with family. bp 14:40 Condition: stable 14:40 Discharge instructions given to patient, Instructed on discharge instructions, follow up and referral plans. Demonstrated understanding of instructions, follow-up care. 14:41 Patient left the ED. bp Signatures: Mariana Park, SUPERVISOR CRACK OFF-C SUPERVISOR CRACK OFF-Miriam Hastings Brian, RN RN bp Kinga Le RN RN ll1
--- NOTE | 2021-12-21 14:23 | EDPHYS ---
Physician Documentation [facility] Name: Rain Chaidez Age: 21 yrs Sex: Female : 2000 Arrival Date: 12/21/2021 Time: 09:30 Bed 14 Private MD: ED Physician Moises Carter HPI: 12/21 13:17 This 21 yrs old Female presents to ER via Ambulatory with complaints of kb Vomiting. 13:18 The patient presents to the emergency department with nausea and vomiting. The kb estimated gestational age is 12 weeks. course: care: at a clinic. Previous pregnancies: the patient has never been . Associated signs and symptoms: Pertinent positives: nausea, vomiting, Pertinent negatives: abdominal pain. The patient has experienced similar episodes in the past. The patient has not recently seen a physician. Pt reports she has had nausea and vomiting throughout her . states she has had vomiting this time for 3 days, bodyaches started today. 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 - Social history:: Smoking status: Patient denies any tobacco usage or history of. ROS: 13:18 Constitutional: Negative for fever, chills, and weight loss. kb 13:18 Abdomen/GI: Positive for nausea and vomiting, Negative for abdominal pain. 13:18 All other systems are negative. 13:18 Constitutional: Positive for body aches. kb Exam: 13:18 Constitutional: This is a well developed, well nourished patient who is awake, alert, kb and in no acute distress. Head/Face: Normocephalic, atraumatic. ENT: Moist Mucous membranes Cardiovascular: Regular rate and rhythm with a normal S1 and S2. No gallops, murmurs, or rubs. No pulse deficits. Respiratory: Respirations even and unlabored. No increased work of breathing. Talking in full sentences Abdomen/GI: Soft, non-tender. No distention Skin: Warm, dry with normal turgor. Normal color. MS/ Extremity: Pulses equal, no cyanosis. Neurovascular intact. Full, normal range of motion. Neuro: Awake and alert, GCS 15, oriented to person, place, time, and situation. Moves all extremities. Normal gait. Psych: Awake, alert, with orientation to person, place and time. Behavior, mood, and affect are within normal limits. Vital Signs: 09:39 BP 121 / 85; Pulse 85; Resp 17; Temp 98.6; Pulse Ox 100% ; Weight 62.14 kg; Height 5 ll1 ft. 0 in. (152.40 cm); 11:00 BP 123 / 82; Pulse 73; Resp 15; Pulse Ox 100% ; bp 12:00 BP 116 / 73; Pulse 73; Resp 16; Pulse Ox 100% ; bp 14:00 BP 118 / 80; Pulse 72; Resp 16; Pulse Ox 100% ; bp 14:30 BP 130 / 84; Pulse 65; Resp 16; Pulse Ox 100% ; bp 09:39 Body Mass Index 26.76 (62.14 kg, 152.40 cm) ll1 MDM: 09:36 Patient medically screened. kb 10:39 Data reviewed: vital signs, nurses notes. Data interpreted: Pulse oximetry: on room air kb is 100 %. Interpretation: normal. 13:17 Counseling: I had a detailed discussion with the patient and/or guardian regarding: the kb historical points, exam findings, and any diagnostic results supporting the discharge/admit diagnosis, lab results, the need for outpatient follow up, an OB/Gyne specialist, to return to the emergency department if symptoms worsen or persist or if there are any questions or concerns that arise at home. ED course: Nausea resolved. Pt states she is drowsy from the medication, but is feeling hungry now. 12/21 09:38 Order name: CBC with Diff; Complete Time: 10:34 kb 12/21 09:38 Order name: CMP; Complete Time: 10:37 kb 12/21 09:38 Order name: Lipase; Complete Time: 10:37 kb 12/21 10:11 Order name: Urine Dipstick-Ancillary; Complete Time: 10:34 EDMS 12/21 10:41 Order name: Flu kb 12/21 09:38 Order name: IV Saline Lock; Complete Time: 10:21 kb 12/21 09:38 Order name: Labs collected and sent; Complete Time: 10:21 kb 12/21 09:38 Order name: Urine Dipstick-Ancillary (obtain specimen); Complete Time: 10:21 kb 12/21 10:14 Order name: Urine Test (obtain specimen); Complete Time: 11:03 kb 12/21 10:41 Order name: SARS RAPID; Complete Time: 12:33 kb 12/21 11:53 Order name: PO challenge; Complete Time: 12:04 kb 12/21 13:18 Order name: FHT's; Complete Time: 14:00 kb Administered Medications: 10:05 Drug: NS 0.9% 1000 ml Route: IV; Rate: 1 bolus; Site: right forearm; bp 10:05 Drug: Phenergan (promethazine) 6.25 mg Route: IVP; Site: right forearm; bp 11:56 Follow up: Response: No adverse reaction bp 12:45 Drug: NS 0.9% 1000 ml Route: IV; Rate: 1000 ml; Site: right forearm; bp 14:40 Follow up: IV Status: Completed infusion bp Disposition Summary: 12/21/21 14:23 Discharge Ordered Location: Home kb Condition: Stable kb Diagnosis - Vomiting of , unspecified kb Followup: kb - With: Emergency Department - When: As needed - Reason: Worsening of condition Followup: kb - With: Private Physician - When: 2 - 3 days - Reason: Recheck today's complaints, Continuance of care, Re-evaluation by your physician Discharge Instructions: - Discharge Summary Sheet kb - Morning Sickness, [id number] kb Forms: - Medication Reconciliation Form kb - Thank You Letter kb - Antibiotic Education kb - Prescription Opioid Use kb Signatures: Dispatcher [employer] Mariana Carolina FNP-C FNP-Magdaleno Kim, RN RN bp Kinga Le, RN RN ll1
[2021-12-21 15:07] VITALS: TEMP 98.6; O2SAT 100
[2021-12-21 15:12] VITALS: BP 130/84
== END 2021-12-21 14:41 | disposition home or self-care (01) ==
LOC: ER 09:27
DX: O21.9 Vomiting of pregnancy, unspecified (principal); Z3A.11 11 weeks gestation of pregnancy
CPT/HCPCS: 36415; 80053; 81003; 83690; 85025; 87804; 87811; 96361; 96374; 99284; J2550; J7030

== ENCOUNTER 2021-12-24 15:01 | Emergency (ER) | payer SELFPAY ==
--- OUTSIDE RECORDS SUMMARY | 2021-12-24 15:06 | XMS REPORT | Continuity of Care Document ---
:2000 Author Organization [facility] t Address [address] [place] [address] Dr. Boothe [address] [place] [id number] Care Team Providers Name Role Phone MAVERICK Gordon [facility] Primary Care P hysician Unavailable CARLOS A DE LA CRUZ Attending Clinician Unavailable Fellow, Denys Navarrochmichael Mfm Attending Clinician Unavailable Madonna Fernandes DO Attending Clinician Provider, Guychp Temp Attending Clinician Unavailable Carlos A Ambriz Attending Clinician Brenda Gabriela CORREA Attending Clinician [phone] LIBBY BAKER Attending Clinician Unavailable Faculty, Evangelista Navarrochp Mfm Attending Clinician Unavailable Libby Baker MD Attending Clinician Tom Maddox MD Attending Clinician TOM MADDOX Attending Clinician Unavailable Doctor Unassigned, [place] Attending Clinician Unavailable Nadine ABBOTT, Leisa Stein Attending Clinician Unavailable BETSY STONER Attending Clinician Unavailable Betsy Stoner DO Attending Clinician Payers Payer Name Policy Type Policy Number Effective Date Expiration Date S ource Problems Condition Condition Condition Status Onset Resolution Last Treating Co mments Source Name Details Category Date Date Treatment Clinician Date Diabetes Diabetes Disease Active 2021-02 Unive rs mellitus mellitus 0-27 [place] first in first Branch trimester trimester 13 weeks 13 weeks Disease Active 2021-02 Unive rs gestation gestation 0-27 ity of of of 00:00: [place] 00 [facility] Branch Nausea and Nausea and Disease Active 2021-02 U nivers vomiting, vomiting, 0-27 ity of unspec[place] d vomiting 00 Me dical type type Branch Atypical Atypical Disease Active 2021-02 Overview: Un [...] 2018-02 Uni vers type 1 type 1 1-21 ity of diabetes diabetes 00:00: [place] mellitus, mellitus, 00 [facility] uncontroll uncontroll Br anch ed ed Allergies, Adverse Reactions, Alerts Allergy Allergy Status Severity Reaction(s) Onset Inactive Treating Comm ents Source Name Type Date Date Clinician NO KNOWN Drug Active Univers ALLERGIE Class ity of S [facility] Social History Social Habit Start Date Stop Date Quantity Comments Source ASSERTION 2021-10-01 [facility] 00:00:00 [facility] Exposure to 2021-12-07 2021-12-17 Not sure [facility] SARS-CoV-2 00:00:00 10:20:00 [facility] (event) [place] Alcohol intake 2021-12-17 2021-12-17 Ex-drinker [facility] 00:00:00 00:00:00 (finding) [facility] Tobacco use and 2021-11-19 2021-11-19 Smokeless tobacco Un iversity of exposure 00:00:00 00:00:00 non-user [facility] Sex Assigned At [birth year] Universit y of 00:00:00 00:00:00 [facility] Smoking Status Start Date Stop Date Source Never smoked tobacco [facility] Medications Ordered Filled Start Stop Current Ordering Indication Dosage Frequency Signature Comments Components Source Medication Medication Date Date Medication? Clinician (SIG) Name Name metoclopram 2021-02 Yes [id number] 5mg Take 1 Univers concepción HCl 0-27 tablet by ity of (REGLAN) 5 00:00: mouth as [place] mg tablet 00 needed for Medi lynda Nausea and Branch Vomiting (N/V) for up to 60 doses. metoclopram 2021-02 Yes [id number] 5mg Take 1 Univers concepción HCl 0-27 tablet by ity of (REGLAN) 5 00:00: mouth as [place] mg tablet 00 needed for Medi lynda Nausea and Branch Vomiting (N/V) for up to 60 doses. amoxicillin 2021-02- Yes [id number] 500mg Take 1 Univers -pot 0-21 11-01 tablet by ity of clavulanate 00:00: 04:59 mouth in [place] 500 mg 00 :00 the Medical (AUGMENTIN) morning Branc h 500-125 mg and 1 tablet tablet in the evening. Do all this for 10 days. amoxicillin 2021-02- Yes [id number] 500mg Take 1 Univers -pot 0-21 11-01 tablet by ity of clavulanate 00:00: 04:59 mouth in [place] 500 mg 00 :00 the Medical (AUGMENTIN) morning Branc h 500-125 mg and 1 tablet tablet in the evening. Do all this for 10 days. amoxicillin 2021-02- Yes [id number] 500mg Take 1 Univers -pot 0-21 11-01 tablet by ity of clavulanate 00:00: 04:59 mouth in [place] 500 mg 00 :00 the Medical (AUGMENTIN) morning Branc h 500-125 mg and 1 tablet tablet in the evening. Do all this for 10 days. amoxicillin 2021-02- Yes [id number] 500mg Take 1 Univers -pot 0-21 11-01 tablet by ity of clavulanate 00:00: 04:59 mouth in [place] 500 mg 00 :00 the Medical (AUGMENTIN) morning Branc h 500-125 mg and 1 tablet tablet in the evening. Do all this for 10 days. amoxicillin 2021-02- Yes [id number] 500mg Take 1 Univers -pot 0-21 11-01 tablet by ity of clavulanate 00:00: 04:59 mouth in [place] 500 mg 00 :00 the Medical (AUGMENTIN) morning Branc h 500-125 mg and 1 tablet tablet in the evening. Do all this for 10 days. insulin 2021-02 Yes [id number] 100{eac 100 Each 3 Univers syr/ndl 0-10 h} (three) ity of U100 half 00:00: times [place] brian 0.5 mL 00 daily. Medica l 31 gauge x Please Branch 07/12" Syrg dispense box of insulin syringes that patient's insurance will cover insulin 2021-02 Yes [id number] 100{eac 100 Each 3 Univers syr/ndl 0-10 h} (three) ity of U100 half 00:00: times [place] brian 0.5 mL 00 daily. Medica l 31 gauge x Please Branch 07/12" Syrg dispense box of insulin syringes that patient's insurance will cover insulin 2021-02 Yes [id number] 100{eac 100 Each 3 Univers syr/ndl 0-10 h} (three) ity of U100 half 00:00: times [place] brian 0.5 mL 00 daily. Medica l 31 gauge x Please Branch 07/12" Syrg dispense box of insulin syringes that patient's insurance will cover insulin 2021-02 Yes [id number] 100{eac 100 Each 3 Univers syr/ndl 0-10 h} (three) ity of U100 half 00:00: times [place] brian 0.5 mL 00 daily. Medica l 31 gauge x Please Branch 07/12" Syrg dispense box of insulin syringes that patient's insurance will cover insulin 2021-02 Yes [id number] 100{eac 100 Each 3 Univers syr/ndl 0-10 h} (three) ity of U100 half 00:00: times [place] brian 0.5 mL 00 daily. Medica l 31 gauge x Please Branch 07/12" Syrg dispense box of insulin syringes that patient's insurance will cover insulin 2021-02 Yes [id number] 100{eac 100 Each 3 Univers syr/ndl 0-10 h} (three) ity of U100 half 00:00: times [place] brian 0.5 mL 00 daily. Medica l 31 gauge x Please Branch 16" Syrg dispense box of insulin syringes that patient's insurance will cover insulin 2021-02 Yes [id number] 100{eac 100 Each 3 Univers syr/ndl 0-10 h} (three) ity of U100 half 00:00: times [place] brian 0.5 mL 00 daily. Medica l 31 gauge x Please Branch 07/12" Syrg dispense box of insulin syringes that patient's insurance will cover insulin 2021-02 Yes [id number] 100{eac 100 Each 3 Univers syr/ndl 0-10 h} (three) ity of U100 half 00:00: times [place] brian 0.5 mL 00 daily. Medica l 31 gauge x Please Branch 16" Syrg dispense box of insulin syringes that patient's insurance will cover insulin 2021-02 Yes [id number] 100{eac 100 Each 3 Univers syr/ndl 0-10 h} (three) ity of U100 half 00:00: times [place] brian 0.5 mL 00 daily. Medica l 31 gauge x Please Branch 07/12" Syrg dispense box of insulin syringes that patient's insurance will cover insulin 2021-02 Yes [id number] 100{eac 100 Each 3 Univers syr/ndl 0-10 h} (three) ity of U100 half 00:00: times [place] brian 0.5 mL 00 daily. Medica l 31 gauge x Please Branch 07/12" Syrg dispense box of insulin syringes that patient's insurance will cover insulin 2021-02 Yes [id number] 100{eac 100 Each 3 Univers syr/ndl 0-10 h} (three) ity of U100 half 00:00: times [place] brian 0.5 mL 00 daily. Medica l 31 gauge x Please Branch 07/12" Syrg dispense box of insulin syringes that patient's insurance will cover insulin NPH 2021-02- Yes [id number] inject 12 Univers (HUMULIN N 0-10 07-08 Units ity of NPH U-100 00:00: 04:59 under the [place] INSULIN) 00 :00 skin daily Medic al 100 unit/mL with Branch injection breakfast AND 12 Units every evening. Do all this for 270 days. insulin 2021-02- Yes [id number] inject 6 U nivers regular 0-10 07-08 Units ity of human 100 00:00: 04:59 under the [place] unit/mL 00 :00 skin daily Medica l injection with Branch breakfast AND 7 Units with evening meal. Do all this for 270 days. doxylamine 2021-02- Yes [id number] 12.5mg Take 0.5 Univers 25 mg 0-10 07-08 tablets by ity of tablet 00:00: 04:59 mouth at [place] 00 :00 bedtime Medical for 270 Branch days. pyridoxine, 2021-02- Yes [id number] 25mg Take 0.5 Univers vitamin B6, 0-10 07-08 tablets by i ty of 50 mg 00:00: 04:59 mouth in [place] tablet 00 :00 the [facility] for 270 days. insulin NPH 2021-02- Yes [id number] inject 12 Univers (HUMULIN N 0-10 07-08 Units ity of NPH U-100 00:00: 04:59 under the [place] INSULIN) 00 :00 skin daily Medic al 100 unit/mL with Branch injection breakfast AND 12 Units every evening. Do all this for 270 days. insulin 2021-02- Yes [id number] inject 6 U nivers regular 0-10 07-08 Units ity of human 100 00:00: 04:59 under the [place] unit/mL 00 :00 skin daily Medica l injection with Branch breakfast AND 7 Units with evening meal. Do all this for 270 days. doxylamine 2021-02- Yes [id number] 12.5mg Take 0.5 Univers 25 mg 0-10 07-08 tablets by ity of tablet 00:00: 04:59 mouth at [place] [facility] Branch [facility]. pyridoxine, 2021-02- Yes [id number] 25mg Take 0.5 Univers vitamin B6, 0-10 07-08 tablets by i ty of 50 mg 00:00: 04:59 mouth in [place] tablet 00 :00 the [facility] for 270 days. insulin NPH 2021-02- Yes [id number] inject 12 Univers (HUMULIN N 0-10 07-08 Units ity of NPH U-100 00:00: 04:59 under the [place] INSULIN) 00 :00 skin daily Medic al 100 unit/mL with Branch injection breakfast AND 12 Units every evening. Do all this for 270 days. insulin 2021-02- Yes [id number] inject 6 U nivers regular 0-10 07-08 Units ity of human 100 00:00: 04:59 under the [place] unit/mL 00 :00 skin daily Medica l injection with Branch breakfast AND 7 Units with evening meal. Do all this for 270 days. doxylamine 2021-02- Yes [id number] 12.5mg Take 0.5 Univers 25 mg 0-10 07-08 tablets by ity of tablet 00:00: 04:59 mouth at [place] 00 :00 bedtime Medical for 270 Branch days. pyridoxine, 2021-02- Yes [id number] 25mg Take 0.5 Univers vitamin B6, 0-10 07-08 tablets by i ty of 50 mg 00:00: 04:59 mouth in [place] tablet 00 :00 the [facility] for 270 days. insulin NPH 2021-02- Yes [id number] inject 12 Univers (HUMULIN N 0-10 07-08 Units ity of NPH U-100 00:00: 04:59 under the [place] INSULIN) 00 :00 skin daily Medic al 100 unit/mL with Branch injection breakfast AND 12 Units every evening. Do all this for 270 days. insulin 2021-02- Yes [id number] inject 6 U nivers regular 0-10 07-08 Units ity of human 100 00:00: 04:59 under the [place] unit/mL 00 :00 skin daily Medica l injection with Branch breakfast AND 7 Units with evening meal. Do all this for 270 days. doxylamine 2021-02- Yes [id number] 12.5mg Take 0.5 Univers 25 mg 0-10 07-08 tablets by ity of tablet 00:00: 04:59 mouth at [place] 00 :00 bedtime Medical for 270 Branch days. pyridoxine, 2021-02- Yes [id number] 25mg Take 0.5 Univers vitamin B6, 0-10 07-08 tablets by i ty of 50 mg 00:00: 04:59 mouth in [place] tablet 00 :00 the [facility] for 270 days. insulin NPH 2021-02- Yes [id number] inject 12 Univers (HUMULIN N 0-10 07-08 Units ity of NPH U-100 00:00: 04:59 under the [place] INSULIN) 00 :00 skin daily Medic al 100 unit/mL with Branch injection breakfast AND 12 Units every evening. Do all this for 270 days. insulin 2021-02- Yes [id number] inject 6 U nivers regular 0-10 07-08 Units ity of human 100 00:00: 04:59 under the [place] unit/mL 00 :00 skin daily Medica l injection with Branch breakfast AND 7 Units with evening meal. Do all this for 270 days. doxylamine 2021-02- Yes [id number] 12.5mg Take 0.5 Univers 25 mg 0-10 07-08 tablets by ity of tablet 00:00: 04:59 mouth at [place] 00 :00 bedtime Medical for 270 Branch days. pyridoxine, 2021-02- Yes [id number] 25mg Take 0.5 Univers vitamin B6, 0-10 07-08 tablets by i ty of 50 mg 00:00: 04:59 mouth in [place] tablet 00 :00 the [facility] for 270 days. insulin NPH 2021-02- Yes [id number] inject 12 Univers (HUMULIN N 0-10 07-08 Units ity of NPH U-100 00:00: 04:59 under the [place] INSULIN) 00 :00 skin daily Medic al 100 unit/mL with Branch injection breakfast AND 12 Units every evening. Do all this for 270 days. insulin 2021-02- Yes [id number] inject 6 U nivers regular 0-10 07-08 Units ity of human 100 00:00: 04:59 under the [place] unit/mL 00 :00 skin daily Medica l injection with Branch breakfast AND 7 Units with evening meal. Do all this for 270 days. doxylamine 2021-02- Yes [id number] 12.5mg Take 0.5 Univers 25 mg 0-10 07-08 tablets by ity of tablet 00:00: 04:59 mouth at [place] 00 :00 bedtime Medical for 270 Branch days. pyridoxine, 2021-02- Yes [id number] 25mg Take 0.5 Univers vitamin B6, 0-10 07-08 tablets by i ty of 50 mg 00:00: 04:59 mouth in [place] tablet 00 :00 the [facility] for 270 days. insulin NPH 2021-02- Yes [id number] inject 12 Univers (HUMULIN N 0-10 07-08 Units ity of NPH U-100 00:00: 04:59 under the [place] INSULIN) 00 :00 skin daily Medic al 100 unit/mL with Branch injection breakfast AND 12 Units every evening. Do all this for 270 days. insulin 2021-02- Yes [id number] inject 6 U nivers regular 0-10 07-08 Units ity of human 100 00:00: 04:59 under the [place] unit/mL 00 :00 skin daily Medica l injection with Branch breakfast AND 7 Units with evening meal. Do all this for 270 days. doxylamine 2021-02- Yes [id number] 12.5mg Take 0.5 Univers 25 mg 0-10 07-08 tablets by ity of tablet 00:00: 04:59 mouth at [place] 00 :00 bedtime Medical for 270 Branch days. pyridoxine, 2021-02- Yes [id number] 25mg Take 0.5 Univers vitamin B6, 0-10 07-08 tablets by i ty of 50 mg 00:00: 04:59 mouth in [place] tablet 00 :00 the Medical morning Branch for 270 days. insulin NPH 2021-02- Yes [id number] inject 12 Univers (HUMULIN N 0-10 07-08 Units ity of NPH U-100 00:00: 04:59 under the [place] INSULIN) 00 :00 skin daily Medic al 100 unit/mL with Branch injection breakfast AND 12 Units every evening. Do all this for 270 days. insulin 2021-02- Yes [id number] inject 6 U nivers regular 0-10 07-08 Units ity of human 100 00:00: 04:59 under the [place] unit/mL 00 :00 skin daily Medica l injection with Branch breakfast AND 7 Units with evening meal. Do all this for 270 days. doxylamine 2021-02- Yes [id number] 12.5mg Take 0.5 Univers 25 mg 0-10 07-08 tablets by ity of tablet 00:00: 04:59 mouth at [place] 00 :00 bedtime Medical for 270 Branch days. pyridoxine, 2021-02- Yes [id number] 25mg Take 0.5 Univers vitamin B6, 0-10 07-08 tablets by i ty of 50 mg 00:00: 04:59 mouth in [place] tablet 00 :00 the Medical morning Branch for 270 days. insulin NPH 2021-02- Yes [id number] inject 12 Univers (HUMULIN N 0-10 07-08 Units ity of NPH U-100 00:00: 04:59 under the [place] INSULIN) 00 :00 skin daily Medic al 100 unit/mL with Branch injection breakfast AND 12 Units every evening. Do all this for 270 days. insulin 2021-02- Yes [id number] inject 6 U nivers regular 0-10 07-08 Units ity of human 100 00:00: 04:59 under the [place] unit/mL 00 :00 skin daily Medica l injection with Branch breakfast AND 7 Units with evening meal. Do all this for 270 days. doxylamine 2021-02- Yes [id number] 12.5mg Take 0.5 Univers 25 mg 0-10 07-08 tablets by ity of tablet 00:00: 04:59 mouth at [place] 00 :00 bedtime Medical for 270 Branch days. pyridoxine, 2021-02- Yes [id number] 25mg Take 0.5 Univers vitamin B6, 0-10 07-08 tablets by i ty of 50 mg 00:00: 04:59 mouth in [place] tablet 00 :00 the Medical morning Branch for 270 days. insulin NPH 2021-02- Yes [id number] inject 12 Univers (HUMULIN N 0-10 07-08 Units ity of NPH U-100 00:00: 04:59 under the [place] INSULIN) 00 :00 skin daily Medic al 100 unit/mL with Branch injection breakfast AND 12 Units every evening. Do all this for 270 days. insulin 2021-02- Yes [id number] inject 6 U nivers regular 0-10 07-08 Units ity of human 100 00:00: 04:59 under the [place] unit/mL 00 :00 skin daily Medica l injection with Branch breakfast AND 7 Units with evening meal. Do all this for 270 days. doxylamine 2021-02- Yes [id number] 12.5mg Take 0.5 Univers 25 mg 0-10 07-08 tablets by ity of tablet 00:00: 04:59 mouth at [place] 00 :00 bedtime Medical for 270 Branch days. pyridoxine, 2021-02- Yes [id number] 25mg Take 0.5 Univers vitamin B6, 0-10 07-08 tablets by i ty of 50 mg 00:00: 04:59 mouth in [place] tablet 00 :00 the Medical morning Branch for 270 days. insulin NPH 2021-02- Yes [id number] inject 12 Univers (HUMULIN N 0-10 -08 Units ity of NPH U-100 00:00: 04:59 under the [place] INSULIN) 00 :00 skin daily Medic al 100 unit/mL with Branch injection breakfast AND 12 Units every evening. Do all this for 270 days. insulin 2021-02- Yes [id number] inject 6 U nivers regular 0-10 07-08 Units ity of human 100 00:00: 04:59 under the [place] unit/mL 00 :00 skin daily Medica l injection with Branch breakfast AND 7 Units with evening meal. Do all this for 270 days. doxylamine 2021-02- Yes [id number] 12.5mg Take 0.5 Univers 25 mg 0- tablets by ity of tablet 00:00: 04:59 mouth at [place] 00 :00 bedtime Medical for 270 Branch days. pyridoxine, 2021-02- Yes [id number] 25mg Take 0.5 Univers vitamin B6, - tablets by i ty of 50 mg 00:00: 04:59 mouth in [place] tablet 00 :00 the Medical morning Branch for 270 days. Nitrofurant 2021- Yes [id number] 100mg Take 1 Univers oin&Nit. 11-22- capsule by ity of Macrocryst 00:00: 04:59 mouth in [place] (MACROBID) 00 :00 the Medical 100 mg morning Branch capsule and 1 capsule in the evening. Do all this for 10 days. Nitrofurant 2021- Yes [id number] 100mg Take 1 Univers oin&Nit. 11-22- capsule by ity of Macrocryst 00:00: 04:59 [...] dose, On Medical 03/07/21 Branch at 0745, [facility] Lancets 2019-1 Yes [id number] Use as Uni vers (RELION 03-21 directed ity of ULTRA THIN 00:00: [place] PLUS 00 Medical LANCETS) Branch Misc insulin NPH 2018-02 Yes [id number] 10U inject 10 Univers and regular 1-23 Units ity of human 70-30 00:00: under the [place] 100 unit/mL 00 skin every Me dical (70-30) 12 Branch injection (twelve) hours. Blood-Gluco 2018-02 Yes [id number] Use as Univers se Meter 03-21 directed ity of (RELION 00:00: [place] MICRO 00 Medical GLUCOSE Branch MONITOR) Kit Lancets 2018-02 Yes [id number] Use as Uni vers (RELION 03-21 directed ity of ULTRA THIN 00:00: [place] PLUS 00 Medical LANCETS) Branch Misc Insulin 2018-02 Yes [id number] Use as Uni vers Syringe-Nee 03-21 directed ity of dle U-100 00:00: [place] (BD INSULIN 00 Medical SYRINGE) Branch 0.5 mL 29 gauge x 1/2" Syrg Insulin 2018-02 Yes [id number] Use as Uni vers Syringe-Nee 03-21 directed ity of dle U-100 00:00: [place] (BD INSULIN 00 Medical SYRINGE) Branch 0.5 mL 29 gauge x 1/2" Syrg insulin NPH 2018-02 Yes [id number] 10U inject 10 Univers and regular 1-23 Units ity of human 70-30 00:00: under the [place] 100 unit/mL 00 skin every Me dical (70-30) 12 Branch injection (twelve) hours. Blood-Gluco 2018-02 Yes [id number] Use as Univers se Meter 03-21 directed ity of (RELION 00:00: [place] MICRO 00 Medical GLUCOSE Branch MONITOR) Kit Lancets 2018-02 Yes [id number] Use as Uni vers (RELION 03-21 directed ity of ULTRA THIN 00:00: [place] PLUS 00 Medical LANCETS) Branch Misc Insulin 2018-02 Yes [id number] Use as Uni vers Syringe-Nee 03-21 directed ity of dle U-100 00:00: [place] (BD INSULIN 00 Medical SYRINGE) Branch 0.5 mL 29 gauge x 1/2" Syrg insulin NPH 2018-02 Yes [id number] 10U inject 10 Univers and regular 1-23 Units ity of human 70-30 00:00: under the [place] 100 unit/mL 00 skin every Me dical (70-30) 12 Branch injection (twelve) hours. Blood-Gluco 2018-02 Yes [id number] Use as Univers se Meter 1-23 directed ity of (RELION 00:00: [place] MICRO 00 Medical GLUCOSE Branch MONITOR) Kit Lancets 2018-02 Yes [id number] Use as Uni vers (RELION 1-23 directed ity of ULTRA THIN 00:00: [place] PLUS 00 Medical LANCETS) Branch Misc Insulin 2018-02 Yes [id number] Use as Uni vers Syringe-Nee -23 directed ity of dle U-100 00:00: [place] (BD INSULIN 00 Medical SYRINGE) Branch 0.5 mL 29 gauge x 1/2" Syrg insulin NPH 2018-02 Yes [id number] 10U inject 10 Univers and regular 1-23 Units ity of human 70-30 00:00: under the [place] 100 unit/mL 00 skin every Me dical (70-30) 12 Branch injection (twelve) hours. Blood-Gluco 2018-02 Yes [id number] Use as Univers se Meter 1-23 directed ity of (RELION 00:00: [place] MICRO 00 Medical GLUCOSE Branch MONITOR) Kit Lancets 2018-02 Yes [id number] Use as Uni vers (RELION 1-23 directed ity of ULTRA THIN 00:00: [place] PLUS 00 Medical LANCETS) Branch Misc Insulin 2018-02 Yes [id number] Use as Uni vers Syringe-Nee -23 directed ity of dle U-100 00:00: [place] (BD INSULIN 00 Medical SYRINGE) Branch 0.5 mL 29 gauge x 1/2" Syrg insulin NPH 2018-02 Yes [id number] 10U inject 10 Univers and regular 1-23 Units ity of human 70-30 00:00: under the [place] 100 unit/mL 00 skin every Me dical (70-30) 12 Branch injection (twelve) hours. Blood-Gluco 2018-02 Yes [id number] Use as Univers se Meter 1-23 directed ity of (RELION 00:00: [place] MICRO 00 Medical GLUCOSE Branch MONITOR) Kit Lancets 2018-02 Yes [id number] Use as Uni vers (RELION 1-23 directed ity of ULTRA THIN 00:00: [place] PLUS 00 Medical LANCETS) Branch Misc Insulin 2018-02 Yes [id number] Use as Uni vers Syringe-Nee -23 directed ity of dle U-100 00:00: [place] (BD INSULIN 00 Medical SYRINGE) Branch 0.5 mL 29 gauge x 1/2" Syrg insulin NPH 2018-02 Yes [id number] 10U inject 10 Univers and regular 1-23 Units ity of human 70-30 00:00: under the [place] 100 unit/mL 00 skin every Me dical (70-30) 12 Branch injection (twelve) hours. Blood-Gluco 2018-02 Yes [id number] Use as Univers se Meter 1-23 directed ity of (RELION 00:00: [place] MICRO 00 Medical GLUCOSE Branch MONITOR) Kit Lancets 2018-02 Yes [id number] Use as Uni vers (RELION -23 directed ity of ULTRA THIN 00:00: [place] PLUS 00 Medical LANCETS) Branch Misc Insulin 2018-02 Yes [id number] Use as Uni vers Syringe-Nee 03-21 directed ity of dle U-100 00:00: [place] (BD INSULIN 00 Medical SYRINGE) Branch 0.5 mL 29 gauge x 1/2" Syrg insulin NPH 2018-02 Yes [id number] 10U inject 10 Univers and regular 1-23 Units ity of human 70-30 00:00: under the [place] 100 unit/mL 00 skin every Me dical (70-30) 12 Branch injection (twelve) hours. Blood-Gluco 2018-02 Yes [id number] Use as Univers se Meter 1- directed ity of (RELION 00:00: [place] MICRO 00 Medical GLUCOSE Branch MONITOR) Kit Lancets 2018-02 Yes [id number] Use as Uni vers (RELION 1-23 directed ity of ULTRA THIN 00:00: [place] PLUS 00 Medical LANCETS) Branch Misc Insulin 2018-02 Yes [id number] Use as Uni vers Syringe-Nee 23 directed ity of dle U-100 00:00: [place] (BD INSULIN 00 Medical SYRINGE) Branch 0.5 mL 29 gauge x 1/2" Syrg insulin NPH 2018-02 Yes [id number] 10U inject 10 Univers and regular 1-23 Units ity of human 70-30 00:00: under the [place] 100 unit/mL 00 skin every Me dical (70-30) 12 Branch injection (twelve) hours. Blood-Gluco 2018-02 Yes [id number] Use as Univers se Meter 1-23 directed ity of (RELION 00:00: [place] MICRO 00 Medical GLUCOSE Branch MONITOR) Kit Lancets 2018-02 Yes [id number] Use as Uni vers (RELION 1-23 directed ity of ULTRA THIN 00:00: [place] PLUS 00 Medical LANCETS) Branch Misc Insulin 2018-02 Yes [id number] Use as Uni vers Syringe-Nee -23 directed ity of dle U-100 00:00: [place] (BD INSULIN 00 Medical SYRINGE) Branch 0.5 mL 29 gauge x 1/2" Syrg insulin NPH 2018-02 Yes [id number] 10U inject 10 Univers and regular 1-23 Units ity of human 70-30 00:00: under the [place] 100 unit/mL 00 skin every Me dical (70-30) 12 Branch injection (twelve) hours. Blood-Gluco 2018-02 Yes [id number] Use as Univers se Meter 1-23 directed ity of (RELION 00:00: [place] MICRO 00 Medical GLUCOSE Branch MONITOR) Kit Lancets 2018-02 Yes [id number] Use as Uni vers (RELION 1-23 directed ity of ULTRA THIN 00:00: [place] PLUS 00 Medical LANCETS) Branch Misc Insulin 2018-02 Yes [id number] Use as Uni vers Syringe-Nee 03-21 directed ity of dle U-100 00:00: [place] (BD INSULIN 00 Medical SYRINGE) Branch 0.5 mL 29 gauge x 1/2" Syrg insulin NPH 2018-02 Yes [id number] 10U inject 10 Univers and regular 1-23 Units ity of human 70-30 00:00: [place] 100 unit/mL 00 skin every Me dical (70-30) 12 Branch injection (twelve) hours. Blood-Gluco 2018-02 Yes [id number] Use as Univers se Meter 1-23 directed ity of (RELION 00:00: [place] MICRO 00 Medical GLUCOSE Branch MONITOR) Kit Lancets 2018-02 Yes [id number] Use as Uni vers (RELION 1-23 directed ity of ULTRA THIN 00:00: [place] PLUS 00 Medical LANCETS) Branch Misc Insulin 2018-02 Yes [id number] Use as Uni vers Syringe-Nee -23 directed ity of dle U-100 00:00: [place] (BD INSULIN 00 Medical SYRINGE) Branch 0.5 mL 29 gauge x 1/2" Syrg insulin NPH 2018-02 Yes [id number] 10U inject 10 Univers and regular 1-23 Units ity of human 70-30 00:00: [place] 100 unit/mL 00 skin every Me dical (70-30) 12 Branch injection (twelve) hours. Blood-Gluco 2018-02 Yes [id number] Use as Univers se Meter - directed ity of (RELION 00:00: [place] MICRO 00 Medical GLUCOSE Branch MONITOR) Kit Lancets 2018-02 Yes [id number] Use as Uni vers (RELION 03-21 directed ity of ULTRA THIN 00:00: [place] PLUS 00 Medical LANCETS) Branch Misc Insulin 2018-02 Yes [id number] Use as Uni vers Syringe-Nee 03-21 directed ity of dle U-100 00:00: [place] (BD INSULIN 00 Medical SYRINGE) Branch 0.5 mL 29 gauge x 1/2" Syrg insulin NPH 2018-02 Yes [id number] 10U inject 10 Univers and regular 1-23 Units ity of human 70-30 00:00: [place] 100 unit/mL 00 skin every Me dical (70-30) 12 Branch injection (twelve) hours. insulin NPH 2018-02 Yes [id number] 10U inject 10 Univers and regular 1-23 Units ity of human 70-30 00:00: [place] 100 unit/mL 00 skin every Me dical (70-30) 12 Branch injection (twelve) hours. Blood-Gluco 2018-02 Yes [id number] Use as Univers se Meter - directed ity of (RELION 00:00: [place] MICRO 00 Medical GLUCOSE Branch MONITOR) Kit Lancets 2018-02 Yes [id number] Use as Uni vers (RELION 03-21 directed ity of ULTRA THIN 00:00: [place] PLUS 00 Medical LANCETS) Branch Misc Insulin 2018-02 Yes [id number] Use as Uni vers Syringe-Nee 03-21 directed ity of dle U-100 00:00: [place] (BD INSULIN 00 Medical SYRINGE) Branch 0.5 mL 29 gauge x 1/2" Syrg Blood-Gluco 2018-02 Yes [id number] Use as Univers se Meter - directed ity of (RELION 00:00: [place] MICRO 00 Medical GLUCOSE Branch MONITOR) Kit Lancets 2018-02 Yes [id number] Use as Uni vers (RELION -23 directed ity of ULTRA THIN 00:00: [place] PLUS 00 Medical LANCETS) Branch Misc insulin NPH 2018-02 Yes [id number] 10U inject 10 Univers and regular 1-23 Units ity of human 70-30 00:00: [place] 100 unit/mL 00 skin every Me dical (70-30) 12 Branch injection (twelve) hours. Blood-Gluco 2018-02 Yes [id number] Use as Univers se Meter - directed ity of (RELION 00:00: [place] MICRO 00 Medical GLUCOSE Branch MONITOR) Kit Lancets 2018-02 Yes [id number] Use as Uni vers (RELION 03-21 directed ity of ULTRA THIN 00:00: [place] PLUS 00 Medical LANCETS) Branch Misc Insulin 2018-02 Yes [id number] Use as Uni vers Syringe-Nee 03-21 directed ity of dle U-100 00:00: [place] (BD INSULIN 00 Medical SYRINGE) Branch 0.5 mL 29 gauge x 1/2" Syrg Insulin 2018-02 Yes [id number] Use as Uni vers Syringe-Nee 03-21 directed ity of dle U-100 00:00: [place] (BD INSULIN 00 Medical SYRINGE) Branch 0.5 mL 29 gauge x 1/2" Syrg insulin NPH 2018-02 Yes [id number] 10U inject 10 Univers and regular 1-23 Units ity of human 70-30 00:00: [place] 100 unit/mL 00 skin every Me dical (70-30) 12 Branch injection (twelve) hours. Blood-Gluco 2018-02 Yes [id number] Use as Univers se Meter - directed ity of (RELION 00:00: [place] MICRO 00 Medical GLUCOSE Branch MONITOR) Kit Lancets 2018-02 Yes [id number] Use as Uni vers (RELION 03-21 directed ity of ULTRA THIN 00:00: [place] PLUS 00 Medical LANCETS) Branch Misc Insulin 2018-02 Yes [id number] Use as Uni vers Syringe-Nee 23 directed ity of dle U-100 00:00: [place] (BD INSULIN 00 Medical SYRINGE) Branch 0.5 mL 29 gauge x 1/2" Syrg insulin NPH 2018-02 Yes [id number] 10U inject 10 Univers and regular 1-23 Units ity of human 70-30 00:00: [place] 100 unit/mL 00 skin every Me dical (70-30) 12 Branch injection (twelve) hours. Blood-Gluco 2018-02 Yes [id number] Use as Univers se Meter 1-23 directed ity of (RELION 00:00: [place] MICRO 00 Medical GLUCOSE Branch MONITOR) Kit Lancets 2018-02 Yes [id number] Use as Uni vers (RELION 1-23 directed ity of ULTRA THIN 00:00: [place] PLUS 00 Medical LANCETS) Branch Misc Insulin 2018-02 Yes [id number] Use as Uni vers Syringe-Nee - directed ity of dle U-100 00:00: [place] (BD INSULIN 00 Medical SYRINGE) Branch 0.5 mL 29 gauge x 1/2" Syrg insulin NPH 2018-02 Yes [id number] 10U inject 10 Univers and regular 1-23 Units ity of human 70-30 00:00: [place] 100 unit/mL 00 skin every Me dical (70-30) 12 Branch injection (twelve) hours. Blood-Gluco 2018-02 Yes [id number] Use as Univers se Meter 1-23 directed ity of (RELION 00:00: [place] MICRO 00 Medical GLUCOSE Branch MONITOR) Kit Lancets 2018-02 Yes [id number] Use as Uni vers (RELION 1-23 directed ity of ULTRA THIN 00:00: [place] PLUS 00 Medical LANCETS) Branch Misc Insulin 2018-02 Yes [id number] Use as Uni vers Syringe-Nee -23 directed ity of dle U-100 00:00: [place] (BD INSULIN 00 Medical SYRINGE) Branch 0.5 mL 29 gauge x 1/2" Syrg insulin NPH 2018-02 Yes [id number] 10U inject 10 Univers and regular 1-23 Units ity of human 70-30 00:00: [place] 100 unit/mL 00 skin every Me dical (70-30) 12 Branch injection (twelve) hours. Blood-Gluco 2018-02 Yes [id number] Use as Univers se Meter 1-23 directed ity of (RELION 00:00: [place] MICRO 00 Medical GLUCOSE Branch MONITOR) Kit insulin NPH 2018-02 Yes [id number] 10U inject 10 Univers and regular 1-23 Units ity of human 70-30 00:00: [place] 100 unit/mL 00 skin every Me dical (70-30) 12 Branch injection (twelve) hours. Lancets 2018-02 Yes [id number] Use as Uni vers (RELION 1-23 directed ity of ULTRA THIN 00:00: [place] PLUS 00 Medical LANCETS) Branch [facility] Insulin 2018-02 Yes [id number] Use as Uni vers Syringe-Nee 03-21 directed ity of dle U-100 00:00: [place] (BD INSULIN 00 Medical SYRINGE) Branch 0.5 mL 29 gauge x 1/2" Syrg Blood-Gluco 2018-02 Yes [id number] Use as Univers se Meter 1-23 directed ity of (RELION 00:00: [place] MICRO 00 Medical GLUCOSE Branch MONITOR) Kit insulin NPH 2018-02 Yes [id number] 10U inject 10 Univers and regular 1-23 Units ity of human 70-30 00:00: [place] 100 unit/mL 00 skin every Me dical (70-30) 12 Branch injection (twelve) hours. Blood-Gluco 2018-02 Yes [id number] Use as Univers se Meter 1-23 directed ity of (RELION 00:00: [place] MICRO 00 Medical GLUCOSE Branch MONITOR) Kit Lancets 2018-02 Yes [id number] Use as Uni vers (RELION -23 directed ity of ULTRA THIN 00:00: [place] PLUS 00 Medical LANCETS) Branch [facility] Insulin 2018-02 Yes [id number] Use as Uni vers Syringe-Nee 03-21 directed ity of dle U-100 00:00: [place] (BD INSULIN 00 Medical SYRINGE) Branch 0.5 mL 29 gauge x 1/2" Syrg ibuprofen 2018-02 Yes [id number] 800mg Take 1 Univers 800 mg 1-21 tablet by ity of tablet 00:00: mouth [place] 00 every 8 Medical (eight) Branch hours as needed for Temp > 38.5 C (PAIN). ibuprofen 2018-02 Yes [id number] 800mg Take 1 Univers 800 mg 1-21 tablet by ity of tablet 00:00: mouth [place] 00 every 8 Medical (eight) Branch hours as needed for Temp > 38.5 C (PAIN). ibuprofen 2018-02 Yes [id number] 800mg Take 1 Univers 800 mg 1-21 tablet by ity of tablet 00:00: mouth [place] 00 every 8 Medical (eight) Branch hours as needed for Temp > 38.5 C (PAIN). ibuprofen 2018- Yes [id number] 800mg Take 1 Univers 800 mg 1-21 tablet by ity of tablet 00:00: mouth [place] 00 every 8 Medical (eight) Branch hours as needed for Temp > 38.5 C (PAIN). ibuprofen 2018-02- No [id number] 800mg Take 1 Univers 800 mg -11-19 tablet by ity of tablet 00:00: 00:00 mouth [place] 00 :00 every 8 Medical (eight) Branch hours as needed for Temp > 38.5 C (PAIN). ibuprofen 2018-02- No [id number] 800mg Take 1 Univers 800 mg -11-19 tablet by ity of tablet 00:00: 00:00 mouth [place] 00 :00 every 8 Medical (eight) Branch hours as needed for Temp > 38.5 C (PAIN). ibuprofen 2018-02- No [id number] 800mg Take 1 Univers 800 mg 03-19 tablet by ity of tablet 00:00: 00:00 mouth [place] 00 :00 every 8 Medical (eight) Branch hours as needed for Temp > 38.5 C (PAIN). Vital Signs Vital Name Observation Time Observation Value Comments Source Systolic blood 2021-12-17 15:21:00 115 mm[Hg] Univer [facility] Diastolic blood 2021-12-17 15:21:00 67 mm[Hg] Unive [facility] Heart rate 2021-12-17 15:21:00 80 /min [facility] Body temperature 2021-12-17 15:21:00 36.11 Cecilia [facility] Respiratory rate 2021-12-17 15:21:00 17 /min [facility] Body height 2021-12-17 15:21:00 152.4 cm [facility] Body weight 2021-12-17 15:21:00 62.551 kg [facility] BMI 2021-12-17 15:21:00 26.93 kg/m2 [facility] Systolic blood 2021-12-06 14:35:00 117 mm[Hg] Univer sity of pressure [facility] Diastolic blood 2021-12-06 14:35:00 70 mm[Hg] Unive rsity of pressure [place] [facility] Heart rate 2021-12-06 14:35:00 75 /min [facility] Body temperature 2021-12-06 14:35:00 36.22 Cecilia [facility] Respiratory rate 2021-12-06 14:35:00 18 /min Univ [facility] [place] [facility] Body height 2021-12-06 14:35:00 152.4 cm [facility] Body weight 2021-12-06 14:35:00 63.674 kg [facility] BMI 2021-12-06 14:35:00 27.42 kg/m2 [facility] Systolic blood 2021-11-19 15:12:00 120 mm[Hg] Univer sity of pressure [facility] Diastolic blood 2021-11-19 15:12:00 75 mm[Hg] Unive rsity of pressure [facility] Heart rate 2021-11-19 15:12:00 73 /min [facility] [place] [facility] Body temperature 2021-11-19 15:12:00 36.39 Cecilia [facility] Respiratory rate 2021-11-19 15:12:00 16 /min [facility] Body height 2021-11-19 15:12:00 152.4 [...] 2021-03-07 12:25:00 122 /min [facility] Body temperature 2021-03-07 12:25:00 38.22 Cecilia [facility] [place] [facility] Respiratory rate 2021-03-07 12:25:00 18 /min [facility] Body weight 2021-03-07 12:25:00 66.225 kg [facility] Oxygen saturation in 2021-03-07 12:25:00 98 /min [facility] Arterial blood by [facility] Pulse oximetry [place] Procedures Procedure Date / Time Performed Performing Clinician Sourc e POCT URINALYSIS 2021-12-17 00:00:00 Carlos A De La Cruz [facility] CREATININE U 24 HR 2021-12-06 15:03:00 Samuel Libby [facility] PROTEIN QUANT U/24H 2021-12-06 15:03:00 Libby Baker [facility] POCT URINALYSIS W/O 2021-11-19 15:06:00 Carlos A De La Cruz [facility] SPECIFIC GRAVITY [facility] POCT TEST 2021-11-19 15:05:00 [facility] A [facility] ASSIGNMENT OF BENEFITS 2021-11-19 14:10:38 Doctor Unassigned, No [facility] POCT GLUCOSE 2021-03-07 12:29:[address] [facility] (AUTOMATED) [facility] NOTICE OF PRIVACY 2021-03-07 12:18:40 Doctor Unassigned, No [facility] CONSENT/REFUSAL FOR 2021-03-07 12:18:18 [facility], [facility] TREATMENT Encounters Start End Encounter Admission Attending Care Care Encounter Source Date/Time Date/Time Type Type Clinicians Facility Department ID 2021-12-23 2021-12-23 Telemedici Fellow, Denys Strong [facility] 1 .[id number] Univers 10:00:00 10:30:00 ne Visit Madonna Fernandes CORPORATE DIRECTOR OF HUMAN RESOURCES [id number] [facility] [id number] Hardeep as MATERNAL [phone] Med ical & CHILD [address] [place] [address] 2021-12-23 2021-12-23 Outpatient R RODRIGUEZ [facility] [id number] Univers 10:00:00 10:00:00 MADONNA ity [facility] 2021-12-17 2021-12-17 Routine Provider, [facility] 1 .[id number] Univers 09:45:00 10:58:07 Carlos A De La Cruz [employer]PORATE DIRECT[employer] HUM[employer] RESOURCES [id number] 0 ity of Visit REGIONAL [id number] Hardeep as MATERNAL [phone] Med ical & CHILD 107 [facility] 2021-12-17 2021-12-17 Outpatient R DOROTHY [facility] [id number] Univers 09:45:00 10:58:07 CARLOS A farfan o f [facility] 2021-12-17 2021-12-17 Telephone [facility] [id number] Univers 00:00:00 00:00:00 Gabriela Casillas CORPORATE DIRECTOR OF HUMAN RESOURCES [id number] ity of REGIONAL [id number] Hardeep as MATERNAL [phone] Med ical & CHILD [address] [place] [address] 2021-12-13 2021-12-13 Outpatient R SAMUEL [facility] [id number] Univers 08:30:00 15:47:00 LIBBY ity [facility] 2021-12-13 2021-12-13 Telemedici Faculty, [facility] 1.2.840.114 [id number] Univers 08:30:00 15:47:00 ne Visit Libby Baker [employer]PORATE DIRECT[employer] HUM[employer] RESOURCES [id number] ity of REGIONAL [id number] Hardeep as MATERNAL [id number] Med ical & CHILD [address] [place] [address] 2021-12-06 2021-12-06 Office Faculty, [facility] 1.2 .840.114 [id number] Univers 09:30:00 10:28:49 Visit Tom Maddox CORPORATE DIRECTOR OF HUMAN RESOURCES [id number] ity of REGIONAL [id number] Hardeep as MATERNAL [id number] Med ical & CHILD 107 [facility] 2021-12-06 2021-12-06 Outpatient R NAYA, [facility] [id number] Univers 09:30:00 10:28:49 TOM ity of [facility] 2021-11-22 2021-11-22 Telephone [facility] [id number] Univers 00:00:00 00:00:00 Marizamartha R CORPORATE DIRECTOR [employer] HUMAN RESOURCES [id number] ity of [employer] [id number] Hardeep as MATERNAL [phone] Med ical & CHILD [address] [place] [address] 2021-11-19 2021-11-19 [facility] [id number] Univers 09:15:00 11:05:56 CARLOS A farfan o [facility] 2021-11-19 2021-11-19 Initial [facility] 1.2.840.114 [id number] Univers 09:15:00 11:05:56 Carlos A R CORPORATE DIRECTOR [employer] HUMAN RESOURCES [id number] ity of Visit [employer] [id number] Hardeep as MATERNAL [phone] Med [facility] & CHILD [address] [place] [address] 2021-11-19 2021-11-19 [facility] [id number] Univers 08:45:00 08:45:00 CARLOS A farfan o [facility] 2021-11-19 2021-11-19 Orders Doctor ROMO 1.2.840.114 [id number] Univers 00:00:00 00:00:00 Only Unassigned, BUNNY 350.1.13.10 ity of [place] [facility] [id number] Hardeep as [id number] [facility] 009 Branch 2021-03-08 2021-03-08 Letter DEMETRIUS Mccoy 1.2.840.114 [id number] Univers 00:00:00 00:00:00 (Out) Leisa HOLLIS 350.1.13.10 it y of HOSPITAL [id number] Hardeep as [phone] [facility] 019 Branch 2021-03-07 2021-03-07 Emergency [facility] E[facility] [id number] Univers 06:32:00 06:55:00 BETSY ity of [facility] 2021-03-07 2021-03-07 Emergency [place] 1.2.840.114 [id number] Univers 06:32:00 06:55:00 Betsy SILVA 350.1.13.10 [facility]y [facility] [id number] [facility] [id number] [facility] 084 [place] 2021-03-07 2021-03-07 Orders Doctor DEMETRIUS 1.2.840.114 [id number] Univers 00:00:00 00:00:00 Only Unassigned, BUNNY [id number] ity of [place] [facility] [id number] [facility] [phone] [facility] 009 [place] Results Test Description Test Time Test Comments [...] APPEAR (test code = 3267) [facility] [id number] 15:06:00 Test Item Value Reference Range Interpretation [...] code = 3257) Trace Negative - [facility] [id number] 15:06:00 Test Item Value Reference Range Interpretation [...] code = 3257) Trace Negative - Negative [facility] URINALYSIS W/O SPECIFIC [id number] 15:06:00 Test Item Value Reference Range Interpretation [...] code = 3257) Trace Negative - Negative [facility] [id number] 15:05:00 Test Item Value Reference Range Interpretation Comments POCT PREG (test code = 1605) Positive On board controls acceptable with C Yes Line (test code = 3574) POCT PREG LOT # (test code = 3575) POCT PREG TEST DATE (test code = 3576) [facility] [id number] 15:05:00 Test Item Value Reference Range Interpretation Comments POCT PREG (test code = 1605) Positive On board controls acceptable with C Yes Line (test code = 3574) POCT PREG LOT # (test code = 3575) POCT PREG TEST DATE (test code = 3576) [facility] [id number] 15:05:00 Test Item Value Reference Range Interpretation Comments POCT PREG (test code = 1605) Positive On board controls acceptable with C Yes Line (test code = 3574) POCT PREG LOT # (test code = 3575) POCT PREG TEST DATE (test code = 3576) [facility] GLUCOSE (AUTOMATED)2021-03-07 12:31:46 Test Item Value Reference Range Interpretation Comments POCT GLU (test code = 2374604139) 359 mg/dL 70-110 H Lab Interpretation (test code = Abnormal 49586-1) [facility]
[2021-12-24 16:02] LABS: Urine Blood Negative (Negative); Urine Glucose Trace (Negative); Urine Protein 2+ (Negative); Urine Specific Gravity 1.025 (1.005-1.030); Urine pH 6.5 (5.0-7.0)
[2021-12-24 16:05] LABS: Absolute Lymphocytes (CBC) 1.7 K/uL (0.7-4.9); Hematocrit 37.9 % (36.0-45.0); Lymphocytes % 14.6 % (15.3-44.8); MCV 80.9 fL (80-100); MPV 7.9 fL (7.6-11.3); RBC Red Blood Cell Count 4.69 M/uL (3.86-4.86)
[2021-12-24 16:11] LABS: Protime INR 1.22
[2021-12-24 16:15] LABS: Urine Bacteria <20 /HPF (<20); Urine Mucus 3+ /HPF (None Seen)
[2021-12-24 16:22] LABS: Albumin 3.6 g/dL (3.4-5.0); Bilirubin Total 0.5 mg/dL (0.2-1.0); Potassium 3.1 mmol/L (3.5-5.1); Protein, Total 8.5 g/dL (6.4-8.2)
[2021-12-24 16:23] LABS: Urine Specific Gravity/Preg 1.025 (1.005-1.030)
--- NOTE | 2021-12-24 18:21 | RAD REPORT ---
EXAM DESCRIPTION: US - Abdomen Exam Limited - 12/24/2021 6:12 pm CLINICAL HISTORY: ABD PAIN COMPARISON: Abdomen Exam Limited dated 12/03/2021; Abdomen Pelvis W Contrast dated 08/16/2021 FINDINGS: The gallbladder demonstrates possible sludge versus stone near the gallbladder neck No per icholecystic fluid or gallbladder wall thickening. The common bile duct is normal measuring 4 mm. Neg ative sonographic Cesar's sign. The liver demonstrates no findings of intrahepatic biliary dilatation. IMPRESSION: Probable sludge rather than stone near the gallbladder neck but no sonographic evidence of acute cholecystitis.
[2021-12-24] MEDS ORDERED: PROMETHAZINE INJ 25 MG/ML AMP ONE (19:17)
[2021-12-24] MEDS ORDERED: ONDANSETRON 4 MG/2 ML VIAL ONE (23:13)
[2021-12-24] MEDS ORDERED: MAGNES/ALUMIN/SIMET 30ML UCUP ONE (23:13)
[2021-12-24] MEDS ORDERED: FAMOTIDINE 20 MG/2 ML VIAL IV ONE (23:13)
[2021-12-25] MEDS ORDERED: CEPHALEXIN 250 MG CAP ONE (00:45)
[2021-12-25] MEDS ORDERED: NA CHLORIDE 0.9% 1,000 ML ONE (00:45)
[2021-12-25] MEDS ORDERED: PROMETHAZINE INJ 25 MG/ML AMP ONE (00:45)
--- NOTE | 2021-12-25 04:34 | ER ---
Nurse's Notes [facility] Name: Rain Chaidez Age: 21 yrs Sex: Female : 2000 Arrival Date: 12/24/2021 Time: 15:08 Bed 19 Private MD: Diagnosis: Hyperemesis gravidarum with metabolic disturbance Presentation: 12/24 15:28 Chief complaint: Patient states: Pt reports left flank pain and N/V. States she was dx kb3 with UTI at [facility] on 12/13 but just picked up her prescription today. Pt is 13 weeks . Coronavirus screen: Vaccine status: Patient reports receiving the 2nd dose of the covid vaccine. Client denies travel out of the [place] in the last 14 days. Ebola Screen: Patient negative for fever greater than or equal to 101.5 degrees Fahrenheit, and additional compatible Ebola Virus Disease symptoms Patient denies exposure to infectious person. Patient denies travel to an Ebola-affected area in the 21 days before illness onset. Initial Sepsis Screen: Does the patient meet any 2 criteria? No. Patient's initial sepsis screen is negative. Does the patient have a suspected source of infection? No. Patient's initial sepsis screen is negative. Risk Assessment: Do you want to hurt yourself or someone else? Patient reports no desire to harm self or others. Onset of symptoms was December 13, 2021. 15:28 Method Of Arrival: Ambulatory kb3 15:28 Acuity: CHERI 3 kb3 Triage Assessment: 15:30 General: Appears in no apparent distress. uncomfortable, ill, Behavior is calm, kb3 cooperative. Pain: Complains of pain in left low back Pain does not radiate. Pain currently is 10 out of 10 on a pain scale. Quality of pain is described as burning, sharp, Pain began UTI symptoms began 12/11. Flank pain began today. GI: Reports nausea, vomiting. 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 - Social history:: Smoking status: Patient denies any tobacco usage or history of. Screenin:33 Abuse screen: Denies threats or abuse. Denies injuries from another. Nutritional mb8 screening: No deficits noted. Tuberculosis screening: No symptoms or risk factors identified. Fall Risk No fall in past 12 months (0 pts). No secondary diagnosis (0 pts). IV access (20 points). Ambulatory Aid- None/Bed Rest/Nurse Assist (0 pts). Gait- Normal/Bed Rest/Wheelchair (0 pts) Mental Status- Oriented to own ability (0 pts). Total Mcdermott Fall Scale indicates No Risk (0-24 pts). Assessment: 18:32 GI: Abdomen is non-distended, Pt is actively vomiting Bowel sounds present X 4 quads. mb8 Abd is soft Reports intolerance of fluids, intolerance of food, nausea, vomiting. : Reports burning with urination, urinary frequency. 19:28 General: Appears uncomfortable, slender, Behavior is calm, cooperative, appropriate for aa9 age. Pain: Complains of pain in neck Pain currently is 7 out of 10 on a pain scale. Aggravated by eating, drinking, Noted to be grimacing, Also complains of nausea. Neuro: Level of Consciousness is awake, alert, obeys commands, Oriented to person, place, time, situation. Cardiovascular: Patient's skin is warm and dry. Respiratory: Airway is patent Respiratory effort is even, unlabored. EENT: Reports difficulty swallowing. Derm: No signs and/or symptoms reported regarding the dermatologic system. Musculoskeletal: No signs and/or symptoms reported regarding the musculoskeletal system. 21:32 GI: Reports nausea, Md notified. ice chips provided. ke1 21:50 Reassessment: nausea decreased. ke1 22:30 Reassessment: Patient and/or family updated on plan of care and expected duration. Pain ke1 level reassessed. Patient states symptoms have improved. 12/25 00:53 GI: Reports nausea. ke1 03:30 Reassessment: Patient is alert, oriented x 3, equal unlabored respirations, skin ke1 warm/dry/pink. Patient states symptoms have improved. 04:48 Reassessment: pt understands medication usage, denies concerns, VS stable. aa9 Vital Signs: 12/24 15:28 BP 111 / 75; Pulse 99; Resp 20; Temp 99.1; Pulse Ox 99% ; Weight 62.14 kg; Height 5 ft. kb3 0 in. (152.40 cm); Pain 10/10; 18:33 BP 116 / 95; Pulse 109; Resp 14; Pulse Ox 100% on R/A; Pain 10/10; mb8 19:29 BP 103 / 70; Pulse 96; Resp 18 S; Pulse Ox 98% on R/A; aa9 12/25 00:34 BP 105 / 69; Pulse 79; Resp 15; Temp 98.8; Pulse Ox 100% on R/A; ke1 03:29 BP 105 / 67; Pulse 78; Resp 15; Temp 98.5(O); Pulse Ox 100% on R/A; ke1 04:47 BP 100 / 69; Pulse 73; Resp 16 S; Pulse Ox 98% on R/A; Pain 0/10; aa9 12/24 15:28 Body Mass Index 26.76 (62.14 kg, 152.40 cm) kb3 ED Course: 12/24 15:08 Patient arrived in ED. am2 15:10 Armand Hall DO is Attending Physician. ms3 15:30 Triage completed. kb3 15:32 Arm band placed on right wrist. kb3 16:02 Inserted saline lock: 20 gauge in right antecubital area, using aseptic technique. zm Blood collected. 16:03 Blood Culture Adult (2) Sent. zm 16:03 CBC with Diff Sent. zm 16:03 CMP Sent. zm 16:03 Lactate Sent. zm 16:03 Protime (+inr) Sent. zm 16:03 Ptt, Activated Sent. zm 16:03 Urine Culture Sent. zm 16:03 Urine Microscopic Only Sent. zm 18:13 US Abdomen Limited: Left flank pain. Concern for stone. Please eval for renal stones In EDMS Process Unspecified. 18:31 Arnel Estrada, RN is Primary Nurse. mb8 18:33 Patient has correct armband on for positive identification. Placed in gown. Bed in low mb8 position. Call light in reach. Side rails up X2. Client placed on continuous cardiac and pulse oximetry monitoring. NIBP monitoring applied. monitoring engineer on. 18:34 No provider procedures requiring assistance completed. mb8 19:17 Attending Physician role handed off by Armand Hall DO ms3 19:17 Elder Amato MD is Attending Physician. ms3 19:40 Primary Nurse role handed off by Arnel Estrada, SCAR mw2 20:53 Moises Galan RN is Primary Nurse. ke1 12/25 04:48 IV discontinued, intact, bleeding controlled, No redness/swelling at site. Pressure aa9 dressing applied. Administered Medications: 12/24 19:26 Drug: Phenergan (promethazine) 12.5 mg Route: IM; Site: left deltoid; aa9 21:13 Follow up: Response: No adverse reaction aa9 23:20 Drug: Maalox (aluminum hydroxide, magnesium hydroxide, simethicone) Suspension (200 ke1 mg-200 mg-20 mg/5 mL) 30 ml Route: PO; 12/25 00:05 Follow up: Response: Marked relief of symptoms ke1 12/24 23:21 Drug: Pepcid (famotidine) 20 mg Route: IVP; Site: right antecubital; ke1 12/25 00:05 Follow up: Response: Marked relief of symptoms ke1 12/24 23:21 Drug: Pepcid (famotidine) 20 mg Route: IVP; Site: right antecubital; ke1 12/25 00:05 Follow up: Response: Marked relief of symptoms ke1 12/24 23:21 Drug: Zofran (Ondansetron) 4 mg Route: IVP; Site: right antecubital; ke1 12/25 00:05 Follow up: Response: Marked relief of symptoms ke1 00:53 Drug: NS 0.9% 1000 ml Route: IV; Rate: 1 bolus; Site: right antecubital; ke1 00:53 Drug: KeFLEX (cephalexin) 500 mg Route: PO; ke1 03:00 Follow up: Response: No adverse reaction ke1 00:54 Drug: Phenergan (promethazine) 12.5 mg Route: IM; Site: right deltoid; ke1 01:30 Follow up: Response: Nausea is decreased ke1 02:59 Not Given (UNAVAILABLE md NOTIFIEDd): Tums (calcium carbonate) Chewable Tablet 800 mg ke1 PO once 03:00 Drug: Reglan (metoCLOPramide) 10 mg Route: IVP; Site: right antecubital; ke1 03:31 Follow up: Response: Marked relief of symptoms ke1 03:00 Drug: Benadryl (diphenhydrAMINE) 25 mg Route: IVP; Site: right antecubital; ke1 03:31 Follow up: Response: Marked relief of symptoms ke1 Medication: 12/24 18:33 VIS not applicable for this client. mb8 Outcome: 12/25 04:33 Discharge ordered by . bs3 04:47 Discharged to home ambulatory, with family. aa9 04:47 Condition: stable 04:47 Discharge instructions given to patient, Instructed on discharge instructions, follow up and referral plans. medication usage, Demonstrated understanding of instructions, follow-up care, medications, Prescriptions given X 4. 04:48 Patient left the ED. aa9 Signatures: Dispatcher [employer] EDMS Latoya Augustin am2 Marshall Gross mw2 Armand Hall, DO ms3 Moises Galan RN RN ke1 Charla Lee Aylin, RN RN aa9 Clau Dominguez, RN RN kb3 Arnel Estrada RN RN mb8 Elder Amato MD MD bs3 Corrections: (The following items were deleted from the chart) 12/24 15:32 15:28 Chief complaint: Patient states: Pt reports left flank pain and N/V. States she kb3 was dx with UTI at [facility] on 12/13 but just picked up her prescription today. kb3 22:59 21:32 GI: Reports nausea, notified ke1 ke1
--- NOTE | 2021-12-25 04:34 | EDPHYS ---
Physician Documentation [facility] Name: Rain Chaidez Age: 21 yrs Sex: Female : 2000 Arrival Date: 12/24/2021 Time: 15:08 Bed 19 Private MD: ED Physician Elder Amato HPI: 12/24 15:50 This 21 yrs old Female presents to ER via Ambulatory with complaints of ms3 Nausea/Vomiting, Back Pain. 15:50 The patient presents to the emergency department with nausea, vomiting. Onset: The ms3 symptoms/episode began/occurred 5 day(s) ago. Possible causes: unknown. The symptoms are aggravated by nothing. The symptoms are alleviated by nothing. Associated signs and symptoms: Pertinent positives: abdominal pain, diarrhea, nausea, vomiting, Pertinent negatives:. Severity of symptoms: At their worst the symptoms were moderate in the emergency department the symptoms are unchanged Pain is currently a 10 / 10. Patient states she was diagnosed with UTI and did not fill her Rx until today. 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 - Social history:: Smoking status: Patient denies any tobacco usage or history of. ROS: 15:50 Constitutional: Negative for fever, and chills. ENT: Negative for injury, pain, and ms3 discharge, Neck: Negative for injury, pain, and swelling, Cardiovascular: Negative for chest pain, and palpitations. Respiratory: Negative for shortness of breath, cough, wheezing, and pleuritic chest pain, MS/Extremity: Negative for injury and deformity, Skin: Negative for injury, rash, and discoloration, Neuro: Negative for headache, weakness, numbness, tingling. 15:50 Abdomen/GI: Positive for abdominal pain, nausea and vomiting. 15:50 All other systems are negative. Exam: 15:50 Constitutional: This is a well developed, well nourished patient who is awake, alert, ms3 and in no acute distress. Head/Face: Normocephalic, atraumatic. Neck: Trachea midline, no cervical lymphadenopathy. Supple, full range of motion without nuchal rigidity, or vertebral point tenderness. No Meningismus. Chest/axilla: Normal chest wall appearance and motion. Nontender with no deformity. Cardiovascular: Regular rate and rhythm with a normal S1 and S2. No gallops, murmurs, or rubs. Normal PMI, no JVD. No pulse deficits. Respiratory: Lungs have equal breath sounds bilaterally, clear to auscultation and percussion. No rales, rhonchi or wheezes noted. No increased work of breathing, no retractions or nasal flaring. Abdomen/GI: Soft, non-tender, with normal bowel sounds. No distension or tympany. No guarding or rebound. No evidence of tenderness throughout. Back: No spinal tenderness. No costovertebral tenderness. Full range of motion. MS/ Extremity: Pulses equal, no cyanosis. Neurovascular intact. Full, normal range of motion. Vital Signs: 15:28 BP 111 / 75; Pulse 99; Resp 20; Temp 99.1; Pulse Ox 99% ; Weight 62.14 kg; Height 5 ft. kb3 0 in. (152.40 cm); Pain 10/10; 18:33 BP 116 / 95; Pulse 109; Resp 14; Pulse Ox 100% on R/A; Pain 10/10; mb8 19:29 BP 103 / 70; Pulse 96; Resp 18 S; Pulse Ox 98% on R/A; aa9 12/25 00:34 BP 105 / 69; Pulse 79; Resp 15; Temp 98.8; Pulse Ox 100% on R/A; ke1 03:29 BP 105 / 67; Pulse 78; Resp 15; Temp 98.5(O); Pulse Ox 100% on R/A; ke1 04:47 BP 100 / 69; Pulse 73; Resp 16 S; Pulse Ox 98% on R/A; Pain 0/10; aa9 12/24 15:28 Body Mass Index 26.76 (62.14 kg, 152.40 cm) kb3 MDM: 12/24 15:28 Patient medically screened. ms3 15:50 Differential diagnosis: Nonspecific abd pain, gastritis, pyelonephritis. ms3 19:16 Transition of care: After a detail discussion of the patient's case, care is ms3 transferred to Elder Amato MD. 23:11 ED course: pt reassessed, still with epigastric pain, pt described burning pain, for bs3 weeks, seen by outside ob, given med that she was unable to fill, labs and us reviewed, possible uti, will tx doubt pyelonephritis, no cva tenderness on my exam, afebrile, will trial alternative medication and reassess. 12/25 01:22 ED course: pt felt almost entirely better, but still in some pain. Requesting a trial bs3 of phenergran, will give additional ivf, I suspect hyperemesis, as pt notes 1-2 weeks, not toelrating oral intake, unable to fill prescription yesterday. . 02:49 ED course: pt feeling a bit better, but not 100%, we had a shared decision making bs3 conversation, pt would like to try to go home in the morning, will cnt tx until dc, pt offered admission/transfer. . 04:32 ED course: pt feeling much better, tolerating oral intake, discussed at length, high bs3 risk of bounceback, return prec given for inability to tolerate oral intake, or any other concerning symptoms. . 04:38 Data reviewed: vital signs, nurses notes, old medical records. bs3 12/24 15:30 Order name: Blood Culture Adult (2) ms3 12/24 15:30 Order name: CBC with Diff; Complete Time: 16:59 ms3 12/24 15:30 Order name: CMP; Complete Time: 16:59 ms3 12/24 15:30 Order name: Lactate; Complete Time: 16:59 ms3 12/24 15:30 Order name: Protime (+inr); Complete Time: 16:59 ms3 12/24 15:30 Order name: Ptt, Activated; Complete Time: 16:59 ms3 12/24 15:30 Order name: Urine Culture ms3 12/24 15:30 Order name: Urine Microscopic Only; Complete Time: 16:59 ms3 12/24 16:03 Order name: Urine Dipstick-Ancillary; Complete Time: 16:59 EDMS 12/24 16:03 Order name: Urine --Ancillary (enter results); Complete Time: 16:59 eb 12/24 17:01 Order name: US Abdomen Limited: Left flank pain. Concern for stone. Please eval for ms3 renal stones; Complete Time: 18:51 12/24 15:30 Order name: Cardiac monitoring; Complete Time: 18:27 ms3 12/24 15:30 Order name: EKG - Nurse/Tech; Complete Time: 18:27 ms3 12/24 15:30 Order name: IV Saline Lock - Large Bore; Complete Time: 16:02 ms3 12/24 15:30 Order name: Labs collected and sent; Complete Time: 16:02 ms3 12/24 15:30 Order name: O2 Per Protocol; Complete Time: 18:27 ms3 12/24 15:30 Order name: O2 Sat Monitoring; Complete Time: 18:27 ms3 12/24 15:30 Order name: Urine Test (obtain specimen); Complete Time: 16:02 ms3 12/24 15:30 Order name: Vital Signs; Complete Time: 18:27 ms3 Administered Medications: 12/24 19:26 Drug: Phenergan (promethazine) 12.5 mg Route: IM; Site: left deltoid; aa9 21:13 Follow up: Response: No adverse reaction aa9 23:20 Drug: Maalox (aluminum hydroxide, magnesium hydroxide, simethicone) Suspension (200 ke1 mg-200 mg-20 mg/5 mL) 30 ml Route: PO; 12/25 00:05 Follow up: Response: Marked relief of symptoms ke1 12/24 23:21 Drug: Pepcid (famotidine) 20 mg Route: IVP; Site: right antecubital; ke1 12/25 00:05 Follow up: Response: Marked relief of symptoms ke1 12/24 23:21 Drug: Pepcid (famotidine) 20 mg Route: IVP; Site: right antecubital; ke1 12/25 00:05 Follow up: Response: Marked relief of symptoms ke1 12/24 23:21 Drug: Zofran (Ondansetron) 4 mg Route: IVP; Site: right antecubital; ke1 12/25 00:05 Follow up: Response: Marked relief of symptoms ke1 00:53 Drug: NS 0.9% 1000 ml Route: IV; Rate: 1 bolus; Site: right antecubital; ke1 00:53 Drug: KeFLEX (cephalexin) 500 mg Route: PO; ke1 03:00 Follow up: Response: No adverse reaction ke1 00:54 Drug: Phenergan (promethazine) 12.5 mg Route: IM; Site: right deltoid; ke1 01:30 Follow up: Response: Nausea is decreased ke1 02:59 Not Given (UNAVAILABLE md NOTIFIEDd): Tums (calcium carbonate) Chewable Tablet 800 mg ke1 PO once 03:00 Drug: Reglan (metoCLOPramide) 10 mg Route: IVP; Site: right antecubital; ke1 03:31 Follow up: Response: Marked relief of symptoms ke1 03:00 Drug: Benadryl (diphenhydrAMINE) 25 mg Route: IVP; Site: right antecubital; ke1 03:31 Follow up: Response: Marked relief of symptoms ke1 Disposition Summary: 12/25/21 04:33 Discharge Ordered Location: Home bs3 Problem: new bs3 Symptoms: have improved bs3 Condition: Fair bs3 Diagnosis - Hyperemesis gravidarum with metabolic disturbance bs3 Followup: bs3 - With: Private Physician - When: 2 - 3 days - Reason: Re-evaluation by your physician Discharge Instructions: - Discharge Summary Sheet bs3 - Hyperemesis Gravidarum bs3 Forms: - Medication Reconciliation Form bs3 - Thank You Letter bs3 - Antibiotic Education bs3 - Prescription Opioid Use bs3 Prescriptions: - Benadryl 25 mg Oral Capsule - take 1 capsule by ORAL route every 6 hours As needed; 30 tablet; Refills: 0, bs3 Product Selection Permitted - Pepcid 20 mg Oral Tablet - take 1 tablet by ORAL route every 12 hours for 5 days; 10 tablet; Refills: 0, bs3 Product Selection Permitted - Reglan 10 mg Oral Tablet - take 1 tablet by ORAL route every 6 hours take 30 minutes before meals and at bs3 bedtime; 20 tablet; Refills: 0, Product Selection Permitted - Compazine 25 mg Rectal Suppository - insert 1 suppository by RECTAL route every 12 hours As needed; 6 suppository; bs3 Refills: 0, Product Selection Permitted Signatures: Dispatcher [employer] Armand Torres, DO ms3 Moises Galan, RN RN ke1 Pamela Lozano, RN RN aa9 Clau Dominguez, RN RN kb3 Elder Amato MD MD bs3 Corrections: (The following items were deleted from the chart) 12/24 17:05 15:31 Abdomen Pelvis Wo [id number] ordered. EDMS EDMS 18:27 15:30 Accucheck ordered. ms3 mb8
[2021-12-25 05:18] VITALS: TEMP 98.5
[2021-12-25 05:19] VITALS: BP 100/69; O2SAT 98
== END 2021-12-25 04:48 | disposition home or self-care (01) ==
LOC: ER 15:01
DX: O21.1 Hyperemesis gravidarum with metabolic disturbance (principal)
CPT/HCPCS: 36415; 76705; 80053; 81003; 81015; 81025; 83605; 85025; 85610; 85730; 87040; 87086; 87088; 96372; 96374; 96375; 99284; J2405; J2550; J7030